=== PATIENT | male | born 1965 | race African-American/Black ===

== ENCOUNTER 2020-12-25 00:05 | Emergency (ER) | payer MEDICAID ==
[~2020-12-25] VITALS: Ht 170.2 cm; Wt 110.7 kg
--- NOTE | 2020-12-25 00:20 | NUR ---
REGULATORY COMPLIANCE DIRECTOR AT [facility] FOR BLOOD DRAW.
[2020-12-25 00:28] LABS: BASOPHILS # (AUTO) 0.1 /CMM (0.0-0.2); BASOPHILS % (AUTO) 0.4 % (0.0-2.0); EOSINOPHILS % (AUTO) 0.1 % (0.0-6.0); HEMATOCRIT 41 % (39-51); HEMOGLOBIN 13.9 g/dL (13.5-17.5); LYMPHOCYTES # (AUTO) 1.5 /CMM (0.8-4.8); LYMPHOCYTES % (AUTO) 10.6 % (20.0-44.0); MEAN CORPUSCULAR HGB CONC 34 g/dl (31.0-36.0); MEAN CORPUSCULAR VOLUME 81 fL (80-96); MONOCYTES # (AUTO) 1.3 /CMM (0.1-1.30); MONOCYTES % (AUTO) 8.8 % (2.0-12.0); NEUTROPHILS # (AUTO) 11.5 /CMM (1.8-8.9); NEUTROPHILS % (AUTO) 80.1 % (43.0-81.0); PLATELET COUNT (AUTO) 205 /CMM (150-450); RED BLOOD CELL COUNT(AUTO) 5.09 MIL/uL (4.5-6.0); WHITE BLOOD COUNT (AUTO) 14.3 K/uL (4.3-11.0)
[2020-12-25 00:39] LABS: CALCIUM, SERUM 9.6 mg/dL (8.5-10.1); CARBON DIOXIDE 28 mmol/L (21-32); CHLORIDE 103 mmol/L (98-107); CREATININE 1.2 mg/dL (0.6-1.3); GLUCOSE 102 mg/dL (74-106); POTASSIUM 4.9 mmol/L (3.5-5.1); SODIUM SERUM 140 mmol/L (136-145); UREA NITROGEN, BLOOD 20 mg/dL (7-18)
[2020-12-25 00:45] LABS: BILIRUBIN,URINE Negative (NEGATIVE); COLOR,URINE DARK YELLOW (YELLOW); LEUKOCYTE ESTERASE ,URINE Negative (NEGATIVE); NITRITE, URINE Negative (NEGATIVE); PH,URINE 6.5 (5.0-8.0); PROTEIN,URINE 100 mg/dl (NEGATIVE); UGLUCOSE Negative (NEGATIVE); UROBILINOGEN,URINE 0.2 EU/dL (0.2)
[2020-12-25 00:52] LABS: ALANINE AMINOTRANSFERASE 38 U/L (12-78); ALBUMIN 4.3 g/dL (3.4-5.0); ALCOHOL, BLOOD < 3 mg/dL (0-0); ALKALINE PHOSPHATASE 114 U/L (46-116); ASPARTATE AMINOTRANSFERASE 45 U/L (15-37); BILIRUBIN,DIRECT 0.3 mg/dL (0.0-0.2); BILIRUBIN,TOTAL 0.8 mg/dL (0.2-1.0); TOTAL PROTEIN, SERUM 8.6 g/dL (6.4-8.2)
[2020-12-25 00:53] LABS: ACETAMINOPHEN 0 ug/ml (10-30)
[2020-12-25 01:03] LABS: BACTERIA,URINE None seen /HPF (None Seen); MUCUS,URINE Few /LPF (None Seen); RBC,URINE 0-2 /HPF (0-2); SQUAMOUS EPITHELIAL CELL,UR Few /HPF (None Seen); WBC,URINE 0-2 /HPF (0-3)
--- NOTE | 2020-12-25 02:11 | NUR ---
CLINICAL AND FACESHEET FAXED TO [facility] INTAKE FOR VOLUNTARY PSYCH ADMISSION.
--- NOTE | 2020-12-25 03:07 | NUR ---
TRANSFER INFORMATION: PT ACCEPTED AT [facility] MAHENDRA SANTOS ACCEPTING MD REAGAN PHONE NUMBER PT WILL GO TO UNIT 2
--- NOTE | 2020-12-25 03:10 | NUR ---
MARILIA WILL TRANSPORT THE PT TO [facility] UNIT 2 IN 45 MINS
--- NOTE | 2020-12-25 03:18 | NUR ---
ATTEMPTED TO GIVE REPORT. UNSUCCESSFUL. STAFFS STATES SHE WILL CALL BACK IN 5 MINUTES
--- NOTE | 2020-12-25 03:37 | NUR ---
REPORT CALLED TO YAMILETH CANO
--- NOTE | 2020-12-25 04:12 | NUR ---
AMBULANCE DELAY BY 15 MINUTES
--- NOTE | 2020-12-25 04:35 | NUR ---
[facility] TO SALES MARKETING MANAGER THE PT. REPORT GIVEN
[2020-12-25 04:36] VITALS: BP 152/82
== END 2020-12-25 04:40 ==
LOC: ER 00:06
DX: R45.851 Suicidal ideations (principal); F32.9 Major depressive disorder, single episode, unspecified; Z20.822 Contact with and (suspected) exposure to COVID-19; I10 Essential (primary) hypertension; G89.29 Other chronic pain; Z88.5 Allergy status to narcotic agent; Z91.018 Allergy to other foods
CPT/HCPCS: 36415; 80048; 80076; 80143; 80307; 80320; 81001; 85025; 87426; 99285; C9803; G0480

== ENCOUNTER 2021-01-03 23:28 | Emergency (ER) | payer MEDICAID ==
[~2021-01-03] VITALS: Ht 170.2 cm; Wt 110.7 kg
--- NOTE | 2021-01-03 23:30 | NUR ---
TO ER BED 14 AMBULATORY C/O SI WITHOUT SPECIFIC PLAN. DEPRESSION. "I FEEL VERY DEPRESSED AND IT'S HARD TO COPE". REQUESTING VOLUNTARY ADMISSION FOR PSYCH. PT AAOX4, NO ACUTE DISTRESS NOTED, RESP EVEN AND UNLABORED. PT CALM AND COOPERATIVE AT THIS TIME. PLACE PT ON HOSPITAL GOWN, ALL BELONGINGS REMOVED AND PLACED IN A LOCKED HOSPITAL LOCKER. 1:1 SITTER AT BEDSIDE FOR PT SAFETY.
--- NOTE | 2021-01-03 23:45 | NUR ---
URINE SAMPLE COLLECTED AND SENT TO LAB.
--- NOTE | 2021-01-03 23:47 | NUR ---
AGRICULTURAL SERVICE TECHNICIAN AT BEDSIDE FOR BLOOD DRAW.
[2021-01-03 23:57] LABS: BASOPHILS % (AUTO) 0.3 % (0.0-2.0); EOSINOPHILS % (AUTO) 0.2 % (0.0-6.0); HEMATOCRIT 43 % (39-51); HEMOGLOBIN 14.4 g/dL (13.5-17.5); LYMPHOCYTES # (AUTO) 2.3 K/uL (0.8-4.8); LYMPHOCYTES % (AUTO) 17.1 % (20.0-44.0); MEAN CORPUSCULAR HGB CONC 34 g/dl (31.0-36.0); MEAN CORPUSCULAR VOLUME 81 fL (80-96); MONOCYTES # (AUTO) 1.1 K/uL (0.1-1.30); MONOCYTES % (AUTO) 8.1 % (2.0-12.0); NEUTROPHILS # (AUTO) 10.2 K/uL (1.8-8.9); NEUTROPHILS % (AUTO) 74.3 % (43.0-81.0); PLATELET COUNT (AUTO) 242 K/uL (150-450); RED BLOOD CELL COUNT(AUTO) 5.27 MIL/uL (4.5-6.0); WHITE BLOOD COUNT (AUTO) 13.7 K/uL (4.3-11.0)
[2021-01-03 23:59] LABS: BILIRUBIN,URINE SMALL (NEGATIVE); COLOR,URINE YELLOW (YELLOW); LEUKOCYTE ESTERASE ,URINE Negative (NEGATIVE); NITRITE, URINE Negative (NEGATIVE); PH,URINE 5.5 (5.0-8.0); PROTEIN,URINE 100 mg/dl (NEGATIVE); UGLUCOSE Negative (NEGATIVE); UROBILINOGEN,URINE 0.2 EU/dL (0.2)
[2021-01-04 00:08] LABS: BACTERIA,URINE Rare /HPF (None Seen); SQUAMOUS EPITHELIAL CELL,UR Few /HPF (None Seen); WBC,URINE NONE SEEN /HPF (0-3)
[2021-01-04 00:09] LABS: CALCIUM, SERUM 9.4 mg/dL (8.5-10.1); CARBON DIOXIDE 21 mmol/L (21-32); CHLORIDE 101 mmol/L (98-107); CREATININE 1.4 mg/dL (0.6-1.3); GLUCOSE 97 mg/dL (74-106); POTASSIUM 4.2 mmol/L (3.5-5.1); SODIUM SERUM 137 mmol/L (136-145); UREA NITROGEN, BLOOD 30 mg/dL (7-18)
[2021-01-04 00:15] LABS: ACETAMINOPHEN < 2 ug/ml (10-30); ALANINE AMINOTRANSFERASE 38 U/L (12-78); ALBUMIN 4.4 g/dL (3.4-5.0); ALCOHOL, BLOOD 43 mg/dL (0-0); ALKALINE PHOSPHATASE 100 U/L (46-116); ASPARTATE AMINOTRANSFERASE 41 U/L (15-37); BILIRUBIN,DIRECT 0.3 mg/dL (0.0-0.2); BILIRUBIN,TOTAL 0.8 mg/dL (0.2-1.0); TOTAL PROTEIN, SERUM 8.7 g/dL (6.4-8.2)
[2021-01-04 02:15] VITALS: BP 134/67
--- NOTE | 2021-01-04 02:15 | NUR ---
PT ASLEEP, NO ACUTE DISTRESS NOTED, RESP EVEN AND UNLABORED. CALL LIGHT WITHIN REACH. 1;1 SITTER REMIANS AT BEDSIDE. WILL CONTINUE TO MONITOR PT.
--- NOTE | 2021-01-04 04:08 | NUR ---
PT ACCEPTED TO [facility] BY DR MORTON. # FOR REPORT [phone]
--- NOTE | 2021-01-04 04:36 | NUR ---
PT AMBULATORY TO THE RESTROOM WITH STEADY GAIT NOTED.
--- NOTE | 2021-01-04 04:51 | NUR ---
[facility] CALLED FOR TRANSPORT. ETA 90 MINUTES.
--- NOTE | 2021-01-04 05:02 | NUR ---
REPORT GIVEN TO NIRU MAXWELL AT [facility]. BED IS 036-9
--- NOTE | 2021-01-04 06:57 | NUR ---
TRANSPORT AT BEDSIDE REPORT GIVEN TO EMT.
== END 2021-01-04 06:57 ==
LOC: ER 23:31
DX: R45.851 Suicidal ideations (principal); F14.10 Cocaine abuse, uncomplicated; Z20.822 Contact with and (suspected) exposure to COVID-19; Z59.0 Homelessness; Z88.6 Allergy status to analgesic agent; F32.9 Major depressive disorder, single episode, unspecified; G89.29 Other chronic pain
CPT/HCPCS: 36415; 80048; 80076; 80143; 80307; 80320; 81001; 85025; 87426; 99285; C9803; G0480

== ENCOUNTER 2021-01-09 13:56 | Emergency (ER) | payer MEDICAID ==
[~2021-01-09] VITALS: Ht 170.2 cm; Wt 110.7 kg
--- NOTE | 2021-01-09 14:29 | NUR ---
PT SELF PRESENTS TO ED. AMBULATORY W/ STEADY GAIT C/O DEPRESSION WITH SI, +PLAN TO JUMP IN FRONT OF A TRAIN. PT DENIES HI. COOPERATIVE TO STAFF. STABLE VITALS. NAD NOTED AWAITING MD HERNADEZ.
--- NOTE | 2021-01-09 15:22 | NUR ---
ENE CLARK AT BEDSIDE FOR EVAL.
--- NOTE | 2021-01-09 15:52 | NUR ---
CARD CUTTER AT BEDSIDE FOR BLOOD DRAW.
[2021-01-09 16:02] LABS: BASOPHILS % (AUTO) 0.2 % (0.0-2.0); HEMATOCRIT 37 % (39-51); HEMOGLOBIN 12.6 g/dL (13.5-17.5); LYMPHOCYTES # (AUTO) 1.5 K/uL (0.8-4.8); LYMPHOCYTES % (AUTO) 17.9 % (20.0-44.0); MEAN CORPUSCULAR HGB CONC 34 g/dl (31.0-36.0); MEAN CORPUSCULAR VOLUME 82 fL (80-96); MONOCYTES # (AUTO) 0.7 K/uL (0.1-1.30); MONOCYTES % (AUTO) 8.3 % (2.0-12.0); NEUTROPHILS # (AUTO) 5.8 K/uL (1.8-8.9); NEUTROPHILS % (AUTO) 70.6 % (43.0-81.0); PLATELET COUNT (AUTO) 198 K/uL (150-450); RED BLOOD CELL COUNT(AUTO) 4.57 MIL/uL (4.5-6.0); WHITE BLOOD COUNT (AUTO) 8.3 K/uL (4.3-11.0)
[2021-01-09 16:16] LABS: ALANINE AMINOTRANSFERASE 33 U/L (12-78); ALBUMIN 3.8 g/dL (3.4-5.0); ALKALINE PHOSPHATASE 104 U/L (46-116); ASPARTATE AMINOTRANSFERASE 28 U/L (15-37); BILIRUBIN,DIRECT 0.2 mg/dL (0.0-0.2); BILIRUBIN,TOTAL 0.4 mg/dL (0.2-1.0); CALCIUM, SERUM 8.6 mg/dL (8.5-10.1); CARBON DIOXIDE 24 mmol/L (21-32); CHLORIDE 102 mmol/L (98-107); CREATININE 1.1 mg/dL (0.6-1.3); GLUCOSE 161 mg/dL (74-106); SODIUM SERUM 137 mmol/L (136-145); TOTAL PROTEIN, SERUM 7.8 g/dL (6.4-8.2); UREA NITROGEN, BLOOD 15 mg/dL (7-18)
[2021-01-09 16:17] LABS: ACETAMINOPHEN < 3 ug/ml (10-30); ALCOHOL, BLOOD < 2 mg/dL (0-0)
[2021-01-09 17:00] LABS: BILIRUBIN,URINE Negative (NEGATIVE); COLOR,URINE YELLOW (YELLOW); LEUKOCYTE ESTERASE ,URINE Negative (NEGATIVE); NITRITE, URINE Negative (NEGATIVE); PROTEIN,URINE 30 mg/dl (NEGATIVE); UGLUCOSE Negative (NEGATIVE)
[2021-01-09 17:21] LABS: BACTERIA,URINE Rare /HPF (None Seen); RBC,URINE NONE SEEN /HPF (0-2); SQUAMOUS EPITHELIAL CELL,UR Few /HPF (None Seen); WBC,URINE NONE SEEN /HPF (0-3)
--- NOTE | 2021-01-09 20:06 | NUR ---
CALLED IVONNE AT [facility] INTAKE TO INSURE SHE HAS REC'S THE INQUIRES
--- NOTE | 2021-01-09 21:03 | NUR ---
PT GOT ACCEPTED AT [facility] BY DR EDWARDS AT UNIT 2. TRANPORTATION RRANGED BY [facility] IN 75-90 MIN
[2021-01-09 22:39] VITALS: BP 138/87
--- NOTE | 2021-01-09 23:10 | NUR ---
[facility]
--- NOTE | 2021-01-09 23:44 | NUR ---
REPORT GIVEN TO FREDDY AT [facility]
--- NOTE | 2021-01-10 00:45 | NUR ---
PT TRANSFERED TO [facility]
== END 2021-01-10 00:47 ==
LOC: ER 13:58
DX: R45.851 Suicidal ideations (principal); K74.60 Unspecified cirrhosis of liver; Z59.0 Homelessness; D64.9 Anemia, unspecified; Z20.822 Contact with and (suspected) exposure to COVID-19; G89.29 Other chronic pain; M79.605 Pain in left leg; Z91.018 Allergy to other foods; Z88.5 Allergy status to narcotic agent; I10 Essential (primary) hypertension; E11.9 Type 2 diabetes mellitus without complications
CPT/HCPCS: 36415; 80048; 80076; 80143; 80307; 80320; 81001; 85025; 87426; 99285; C9803; G0480

== ENCOUNTER 2021-01-21 05:33 | Emergency (ER) | payer MEDICAID, OTHER ==
[~2021-01-21] VITALS: Ht 170.2 cm; Wt 111.1 kg
--- NOTE | 2021-01-21 06:18 | NUR ---
PT REFUSED TO CHANGE IN TO HOSPITAL GOWN. SECURITY AT BED SIDE
--- NOTE | 2021-01-21 06:21 | NUR ---
BIBS FOR C/O SI W/ PLAMN TO JUMP IN FRONT OFA TRAIN. ASKING FOR MEDICAL CLEARANCE FOR VOLUNTARY PSYCH ADMISSION. AMBULATORY OT THE PATHROOM. URINE SAMPLE OBTAINED. PT WAS GOWNED UP, IN BED AND REMAINED UNDER CLOSE SUPERVISION OF A SITTER. SI PRECAUTION IMPLEMENTED. ON MONITOR. VSS. WILL CONT TO MONITOR
[2021-01-21 06:46] LABS: BASOPHILS % (AUTO) 0.5 % (0.0-2.0); HEMATOCRIT 37 % (39-51); HEMOGLOBIN 12.4 g/dL (13.5-17.5); LYMPHOCYTES # (AUTO) 0.9 K/uL (0.8-4.8); LYMPHOCYTES % (AUTO) 17.3 % (20.0-44.0); MEAN CORPUSCULAR HGB CONC 34 g/dl (31.0-36.0); MEAN CORPUSCULAR VOLUME 82 fL (80-96); MONOCYTES # (AUTO) 0.5 K/uL (0.1-1.30); MONOCYTES % (AUTO) 10.9 % (2.0-12.0); NEUTROPHILS # (AUTO) 3.4 K/uL (1.8-8.9); NEUTROPHILS % (AUTO) 69.3 % (43.0-81.0); PLATELET COUNT (AUTO) 136 K/uL (150-450); RED BLOOD CELL COUNT(AUTO) 4.48 MIL/uL (4.5-6.0)
--- NOTE | 2021-01-21 06:49 | NUR ---
COVID SWAB COLLECTED AND SENT TO LAB
[2021-01-21 07:01] LABS: ALANINE AMINOTRANSFERASE 39 U/L (12-78); ALBUMIN 3.7 g/dL (3.4-5.0); ALCOHOL, BLOOD < 3 mg/dL (0-0); ALKALINE PHOSPHATASE 104 U/L (46-116); ASPARTATE AMINOTRANSFERASE 29 U/L (15-37); BILIRUBIN,DIRECT 0.3 mg/dL (0.0-0.2); BILIRUBIN,TOTAL 0.7 mg/dL (0.2-1.0); CALCIUM, SERUM 8.5 mg/dL (8.5-10.1); CARBON DIOXIDE 26 mmol/L (21-32); CHLORIDE 101 mmol/L (98-107); CREATININE 1.3 mg/dL (0.6-1.3); GLUCOSE 247 mg/dL (74-106); POTASSIUM 3.4 mmol/L (3.5-5.1); SODIUM SERUM 139 mmol/L (136-145); TOTAL PROTEIN, SERUM 7.7 g/dL (6.4-8.2)
[2021-01-21 07:14] LABS: BILIRUBIN,URINE NEGATIVE (NEGATIVE); COLOR,URINE DARK YELLOW (YELLOW); LEUKOCYTE ESTERASE ,URINE NEGATIVE (NEGATIVE); NITRITE, URINE NEGATIVE (NEGATIVE); PH,URINE 5.5 (5.0-8.0); PROTEIN,URINE 100 mg/dl (NEGATIVE); UGLUCOSE 250 MG/DL mg/dL (NEGATIVE)
[2021-01-21 07:14] LABS: ACETAMINOPHEN 0 ug/ml (10-30)
[2021-01-21 07:15] LABS: UREA NITROGEN, BLOOD 16 mg/dL (7-18)
[2021-01-21 07:28] LABS: BACTERIA,URINE Rare /HPF (None Seen); RBC,URINE 0-2 /HPF (0-2); SQUAMOUS EPITHELIAL CELL,UR Rare /HPF (None Seen)
--- NOTE | 2021-01-21 07:31 | NUR ---
The patient is sleeping in bed. Easily aroused. VSS
[2021-01-21 07:32] LABS: COARSE GRANULAR CASTS,URINE Rare /LPF (None Seen)
--- NOTE | 2021-01-21 09:25 | NUR ---
HAVING BREAKFAST AT THIS TIME
[2021-01-21 11:04] VITALS: BP 144/87
--- NOTE | 2021-01-21 11:04 | NUR ---
THE PATIENT ALERT AND ORIENTED X3. DENIES PAIN. IN ROOM AIR AND DENIES SOB. RESPIRATION REGULAR AND UNLABORED. WILL CONTINUE TO MONITOR THE PATIENT.
--- NOTE | 2021-01-21 11:45 | NUR ---
"Social Service consult: access services librarian consult requested for suicidal ideation with a plan and substance use. Patient is a 55-year-old, male. SW met with patient at his bedside in the emergency department. Patient was alert and oriented x4. Patient appeared anxious. Patient appeared well-groomed. Per chart, patient was brought in by self on 01/21/21 with complaints of suicidal ideation with a plan to jump in front of a train. Patient requested voluntary psychiatric admission. Upon consult, patient requested voluntary psychiatric admission to, [facility] ([address] [place] [address]; ). SW to follow up. Patient stated that he is currently experiencing suicidal ideation with a plan to overdose on drugs. Patient denied homicidal ideation. Patient stated that he is currently homeless and was previously living at multiple [facility] locations. Patient stated that his current source of income is food stamps and [employer]. SW asked the patient if he has access to social support and patient stated that he has no access to support. SW asked the patient if he has a history of substance use and patient reported occasional alcohol and drug use. Patient did not want to discuss or disclose further regarding his substance use history. Per toxicology report, patient is positive for cocaine. SW assessed patients history of mental illness. Patient stated that he has a history of Paranoid Schizophrenia and Schizoaffective Disorder. Patient stated that he is currently taking psychiatric medications which include, Wellbutrin, Seroquel, Prozac and Xanax, which he obtains from [facility] SW offered the patient homeless, mental health, and substance use resources. Patient accepted the resources and thanked SW. Patient signed the homeless waiver and SW filed waiver in the patients chart. NATHAN will fax clinicals to [phone], for review per patients request for voluntary psychiatric admission to [facility]. PLAN: Per patient's request, NATHAN will fax clinicals for review to [facility]. Addendum: 01/21/21 at 1442 by MOHSEN GARBER RESOURCES: Year-round shelters: [facility] [place] [address] [place] [address] ; [facility] [place] [address] [place] [address]; [facility] [id number] [facility] [address] SPA 4 | [facility] [place] Provider: [facility] Serve Address: [address], [address] # of Beds: 48 Population Served: [facility] Provider: First to Serve Address: [address] [facility], [address] # of Beds: 73 Population Served: [facility] 6 | [facility] Provider: [facility] at Last Address: [address] [facility], [address] # of Beds: 63 Population Served: [facility] SPA 3 | [facility] Provider: [facility] [place] Address: [address] [facility], [address] # of Beds: 75 Population Served: [place] SPA 8 | [facility] Provider: [facility] [place] Address: [address] [facility], [address] # of Beds: 80 Population Served: [place] SPA 1 | [facility] Provider: [facility] [place] Address: [address] [address], [address] # of Beds: 85 Population Served: [place] SPA 2 | [facility] Provider: Y[place] Address: Confidential (please call for location) # of Beds: 52 Population Served: [facility] 4 | [facility] Provider: Carlos A Johnson Address: [address] [facility], [address] # of Beds: 49 Population Served: [facility] Provider: [facility] To Serve Address: [address] [place] [address], [address] # of Beds: 27 Population Served: [facility] Hygiene: [facility] [employer]: [address] [place] ; [facility] [address] [facility] ; [facility] [address] [facility] . Food Resources: [place] [facility] at [facility]- [address] [facility]; Meet Each Need with Dignity ([facility]) [address] [facility]; [facility] [address] [facility]; [facility] 8[address] [facility]. Mental Health resources provided: [facility] [address] [place], [place] [address] ; [facility] [place] [address] [facility] [address], [place], [place] [phone] ; Pilar Duenas [facility] [address] [place] [address] ; [facility] [address] [place], [place] [phone] Healthcare Clinics: [facility] [address] [facility], [address] [place]. [place] ; [facility] [address] [facility] [address] [place] [address]; [facility] [address] [facility]. [place] [phone] Counseling--[facility] [address] [facility] [facility], [place] [address] (Specializes in in-depth psychotherapy for emotional distress: anxiety, depression, interpersonal conflicts, life transitions, childhood abuse) PSYCHIATRIC OUTPATIENT SERVICES [facility] Partial Hospitalization and Intensive Outpatient Program (Managed Care and [place] Only) [address] [facility] [address] [facility] Partial Hospitalization and Outpatient Program [address] [place] [address] [facility] Partial Hospitalization and Outpatient Program [address] [place], [place] [id number] VAN YS [facility] [address] [place], [place] [phone] [facility] Partial Hospitalization and Outpatient Program [address] [place], [place] [phone] Substance use resources provided included: [facility] Substance Abuse Self-Helpline (SAS) ; [facility] [address] [facility]. [place] [address] ; [facility] [address] [facility] [address] ; [facility] [address] [facility] [phone] ; [facility] Treatment [facility] 49[address] [facility] [phone] ; [facility] [address] [facility] [address] ; [facility] [place]; [facility] [place]; [facility] [place]; Alcoholics Anonymous -SFV"
--- NOTE | 2021-01-21 11:50 | NUR ---
Family Physician note: Per patient's request, SW faxed clinicals for review, . Patient requested voluntary psychiatric admission to [facility].
--- NOTE | 2021-01-21 13:41 | NUR ---
PER [facility] REQUEST FAXED LAB RESULTS TO THE HOSPITAL TEL [phone] FAX [phone] Addendum: 01/21/21 at 1344 by ERON FAX COMFIRMATION RECEIVED
--- NOTE | 2021-01-21 14:20 | NUR ---
Tree Expert note: Patient has been accepted to [facility] ([address] [facility], [place] [address]; ) for inpatient psychiatric hospitalization. Call in to report at [phone].
--- NOTE | 2021-01-21 15:14 | NUR ---
Report given to nurse Loaiza from [facility].
--- NOTE | 2021-01-21 15:46 | NUR ---
ARRANGED TRANSPORT WITH RAULITO TO [facility]. ETA IS 1900
--- NOTE | 2021-01-21 19:27 | NUR ---
FOLLOWED UP WITH MONA FERRARA. NO TRANSPORT SET UP. EARLIEST ETA IS 0100
--- NOTE | 2021-01-21 19:29 | NUR ---
SET UP BLS TRANSPORT THROUGH [facility]. ETA IS 45 MIN
--- NOTE | 2021-01-21 19:30 | NUR ---
SPOKE WITH MARA FROM [facility] TO SET UP TRANPORT
--- NOTE | 2021-01-21 19:47 | NUR ---
[facility] UNIT #[id number] IN FACILITY
--- NOTE | 2021-01-21 19:55 | NUR ---
REPORT GIVEN, PT LEFT VIA [facility] AMBULANCE. VSS, NAD.
== END 2021-01-21 20:05 ==
LOC: ER 05:38
DX: R45.851 Suicidal ideations (principal); Z59.0 Homelessness; F20.0 Paranoid schizophrenia; I10 Essential (primary) hypertension
CPT/HCPCS: 36415; 80048; 80076; 80143; 80307; 80320; 81001; 85025; 87426; 99285; C9803; G0480

== ENCOUNTER 2021-01-23 07:30 | Emergency (ER) | payer OTHER ==
[~2021-01-23] VITALS: Ht 170.2 cm; Wt 109.3 kg
[2021-01-23 08:17] LABS: BASOPHILS % (AUTO) 0.5 % (0.0-2.0); EOSINOPHILS % (AUTO) 2.9 % (0.0-6.0); HEMATOCRIT 36 % (39-51); HEMOGLOBIN 12.2 g/dL (13.5-17.5); LYMPHOCYTES # (AUTO) 1.5 K/uL (0.8-4.8); LYMPHOCYTES % (AUTO) 22.8 % (20.0-44.0); MEAN CORPUSCULAR HGB CONC 34 g/dl (31.0-36.0); MEAN CORPUSCULAR VOLUME 81 fL (80-96); MONOCYTES # (AUTO) 0.7 K/uL (0.1-1.30); MONOCYTES % (AUTO) 11.4 % (2.0-12.0); NEUTROPHILS # (AUTO) 4.1 K/uL (1.8-8.9); NEUTROPHILS % (AUTO) 62.4 % (43.0-81.0); PLATELET COUNT (AUTO) 188 K/uL (150-450); RED BLOOD CELL COUNT(AUTO) 4.43 MIL/uL (4.5-6.0); WHITE BLOOD COUNT (AUTO) 6.5 K/uL (4.3-11.0)
[2021-01-23] MEDS ORDERED: OLANZAPINE 5 MG TABLET ONE (08:21)
[2021-01-23] MEDS: OLANZAPINE 5 MG TABLET PO ONE (08:24)
[2021-01-23 08:40] LABS: BILIRUBIN,URINE NEGATIVE (NEGATIVE); COLOR,URINE YELLOW (YELLOW); LEUKOCYTE ESTERASE ,URINE NEGATIVE (NEGATIVE); NITRITE, URINE NEGATIVE (NEGATIVE); PROTEIN,URINE NEGATIVE (NEGATIVE); UGLUCOSE NEGATIVE (NEGATIVE)
[2021-01-23 09:09] LABS: ALANINE AMINOTRANSFERASE 38 U/L (12-78); ALBUMIN 3.5 g/dL (3.4-5.0); ALKALINE PHOSPHATASE 97 U/L (46-116); ASPARTATE AMINOTRANSFERASE 28 U/L (15-37); BILIRUBIN,DIRECT 0.2 mg/dL (0.0-0.2); BILIRUBIN,TOTAL 0.5 mg/dL (0.2-1.0); CARBON DIOXIDE 29 mmol/L (21-32); CHLORIDE 103 mmol/L (98-107); CREATININE 1.2 mg/dL (0.6-1.3); GLUCOSE 102 mg/dL (74-106); SODIUM SERUM 139 mmol/L (136-145); TOTAL PROTEIN, SERUM 7.2 g/dL (6.4-8.2); UREA NITROGEN, BLOOD 17 mg/dL (7-18)
[2021-01-23 09:14] LABS: ACETAMINOPHEN < 10 ug/ml (10-30); ALCOHOL, BLOOD < 3 mg/dL (0-0)
[2021-01-23 09:27] LABS: BACTERIA,URINE Rare /HPF (None Seen); RBC,URINE 0-2 /HPF (0-2); SQUAMOUS EPITHELIAL CELL,UR Rare /HPF (None Seen); WBC,URINE 0-2 /HPF (0-3)
--- NOTE | 2021-01-23 11:05 | NUR ---
[facility]
--- NOTE | 2021-01-23 11:05 | NUR ---
Research And Development Specialist consult: director of creative services requested for patient with complaints of feeling depressed. Patient is a 55-year-old, male. SW met with patient at his bedside in the emergency department. Patient was alert and oriented x4. Patient was calm and resting. Per chart, patient presented to the hospital on 01/23/21 with complaints of feeling depressed and requested voluntary psychiatric admission. ED staff faxed clinicals to [facility]. Patient is currently homeless and stated that he has been homeless for the last couple of months. SW asked patient if he currently had a source of income and patient stated that he receives food stamps and [employer]. Patient stated, "I'm waiting for my SSI." SW asked the patient about his history of substance use and patient denied history. Per toxicology report, patient is positive for cocaine. SW assessed patient's history of mental illness and patient reported, Paranoid Schizophrenia, Bipolar Disorder and Depression. Patient stated that he is currently taking psychiatric medication which includes, Seroquel, Wellbutrin and Xanax. Patient reported that he has experienced visual hallucinations in the past but was not experiencing hallucinations during the interview. Patient stated that he has been feeling depressed and suicidal. Patient did not endorse a plan for his suicidal ideation. Patient denied homicidal ideation. SW offered the patient homeless resources and patient declined the resources stating that he did not need them at this time. Patient signed the homeless waiver and SW filed the waiver in the patient's chart. Patient requested voluntary psychiatric admission to [facility]. SW will follow up with this discharge plan. PLAN: Clinicals have been faxed to [facility], for review. No further SS intervention at this time, however, SW will remain available as needed.
--- NOTE | 2021-01-23 11:21 | NUR ---
The patient sleeping. Easily responsive to verbal stimuli. VSS.
--- NOTE | 2021-01-23 12:10 | NUR ---
PT ACCEPTED TO [facility] UNDER DR. MORTON UNIT TWO [phone]
--- NOTE | 2021-01-23 12:13 | NUR ---
TRANSPORT CALLED MARILIA AREVALO 60 MINS.
--- NOTE | 2021-01-23 12:15 | NUR ---
CALLED FOR REPORT, NURSE IS ON BREAK
--- NOTE | 2021-01-23 12:42 | NUR ---
REPORT GIVEN TO NURSE WHALEY FROM [facility]ERIE HENDRICKSON.
--- NOTE | 2021-01-23 14:05 | NUR ---
Lease Buyer note: Patient has been accepted to [facility].
--- NOTE | 2021-01-23 14:10 | NUR ---
The patient is transfered to [facility].
[2021-01-23 14:12] VITALS: BP 124/86
== END 2021-01-23 14:13 ==
LOC: ER 07:32
DX: R45.851 Suicidal ideations (principal); F31.9 Bipolar disorder, unspecified; F14.10 Cocaine abuse, uncomplicated; Z59.0 Homelessness; F20.0 Paranoid schizophrenia; I10 Essential (primary) hypertension; Z88.5 Allergy status to narcotic agent; Z91.018 Allergy to other foods; E11.9 Type 2 diabetes mellitus without complications; Z20.822 Contact with and (suspected) exposure to COVID-19
CPT/HCPCS: 36415; 80048; 80076; 80143; 80307; 80320; 81001; 85025; 87426; 99285; C9803; G0480

== ENCOUNTER 2021-01-29 21:42 | Emergency (ER) | payer OTHER ==
[~2021-01-29] VITALS: Ht 170.2 cm; Wt 109.3 kg
--- NOTE | 2021-01-29 21:45 | NUR ---
C/O SI WITH PLAN TO JUMP IN FRONT OF A MOVING TRAIN, DEPRESSED. DENIES HI. REQUESTING VOLUNTARY ADMISSION TO [facility]. PT AAOX4 NO ACUTE DISTRESS NOTED, RESP EVEN AND UNLABORED. PT CALM AND COOPERATIVE AT THIS TIME.PENDING ER MD HERNADEZ.
--- NOTE | 2021-01-29 22:18 | NUR ---
URINE SAMPLE COLLECTED AND SENT TO LAB.
--- NOTE | 2021-01-29 22:20 | NUR ---
BLOOD DRAWN BY PROCESS EXCELLENCE MANAGER.
[2021-01-29 22:24] LABS: BASOPHILS % (AUTO) 0.5 % (0.0-2.0); EOSINOPHILS % (AUTO) 1.6 % (0.0-6.0); HEMATOCRIT 41 % (39-51); LYMPHOCYTES % (AUTO) 22.8 % (20.0-44.0); MEAN CORPUSCULAR HGB CONC 34 g/dl (31.0-36.0); MEAN CORPUSCULAR VOLUME 79 fL (80-96); MONOCYTES # (AUTO) 1.1 K/uL (0.1-1.30); MONOCYTES % (AUTO) 12.2 % (2.0-12.0); NEUTROPHILS # (AUTO) 5.6 K/uL (1.8-8.9); NEUTROPHILS % (AUTO) 62.9 % (43.0-81.0); PLATELET COUNT (AUTO) 220 K/uL (150-450); RED BLOOD CELL COUNT(AUTO) 5.15 MIL/uL (4.5-6.0); WHITE BLOOD COUNT (AUTO) 8.9 K/uL (4.3-11.0)
[2021-01-29 22:27] LABS: BILIRUBIN,URINE Negative (NEGATIVE); COLOR,URINE YELLOW (YELLOW); LEUKOCYTE ESTERASE ,URINE Negative (NEGATIVE); NITRITE, URINE Negative (NEGATIVE); PROTEIN,URINE 30 mg/dl (NEGATIVE); UGLUCOSE Negative (NEGATIVE)
[2021-01-29 22:32] LABS: CALCIUM, SERUM 9.2 mg/dL (8.5-10.1); CARBON DIOXIDE 27 mmol/L (21-32); CHLORIDE 102 mmol/L (98-107); CREATININE 1.4 mg/dL (0.6-1.3); GLUCOSE 110 mg/dL (74-106); POTASSIUM 4.5 mmol/L (3.5-5.1); SODIUM SERUM 139 mmol/L (136-145); UREA NITROGEN, BLOOD 21 mg/dL (7-18)
[2021-01-29 22:37] LABS: ALANINE AMINOTRANSFERASE 29 U/L (12-78); ALBUMIN 3.8 g/dL (3.4-5.0); ALKALINE PHOSPHATASE 95 U/L (46-116); ASPARTATE AMINOTRANSFERASE 28 U/L (15-37); BILIRUBIN,DIRECT 0.3 mg/dL (0.0-0.2); TOTAL PROTEIN, SERUM 7.8 g/dL (6.4-8.2)
[2021-01-29 22:38] LABS: ACETAMINOPHEN < 2 ug/ml (10-30); ALCOHOL, BLOOD < 3 mg/dL (0-0)
[2021-01-29 22:46] LABS: BACTERIA,URINE Rare /HPF (None Seen); RBC,URINE NONE SEEN /HPF (0-2); SQUAMOUS EPITHELIAL CELL,UR Few /HPF (None Seen); WBC,URINE NONE SEEN /HPF (0-3)
--- NOTE | 2021-01-29 23:28 | NUR ---
FACESHEET AND CLINICAL FAXED TO [facility] INTAKE FOR VOLUNTARY PSYCH ADMISSION.
--- NOTE | 2021-01-30 00:05 | NUR ---
PT ASLEEP, NO ACUTE DISTRESS NOTED, RESP EVEN AND UNLABORED. CALL LIGHT WITHIN REACH. WILL CONTINUE TO MONITOR PT CLOSELY.
[2021-01-30 06:28] VITALS: BP 132/87
--- NOTE | 2021-01-30 06:51 | NUR ---
ACCEPTED [facility]OVER NUMBER FOR REPORT [phone] LETICIA WANG
--- NOTE | 2021-01-30 07:30 | NUR ---
[facility] WILL BE HERE TO TRANSPORT PT TO [facility] IN 45 MINS. VIA [facility].
--- NOTE | 2021-01-30 08:00 | NUR ---
REPORT GIVEN TO HERMAN MAXWELL AT [facility].
--- NOTE | 2021-01-30 08:07 | NUR ---
REPORT AND DISCHARGE PAPERWORK GIVEN TO LUGGAGE LINER. PATIENT A/OX3, BREATHING EVEN AND UNLABORED, NO SOB NTOED. PATIENT WILL BE TRANSFERRED TO [facility] IN STABLE CONDITION.
== END 2021-01-30 08:08 ==
LOC: ER 21:44
DX: R45.851 Suicidal ideations (principal); F31.9 Bipolar disorder, unspecified; F19.10 Other psychoactive substance abuse, uncomplicated; Z82.49 Family history of ischemic heart disease and other diseases of the circulatory system; Z20.822 Contact with and (suspected) exposure to COVID-19; Z59.0 Homelessness; F17.200 Nicotine dependence, unspecified, uncomplicated; Z88.5 Allergy status to narcotic agent; Z91.018 Allergy to other foods; F20.0 Paranoid schizophrenia; I10 Essential (primary) hypertension; E11.9 Type 2 diabetes mellitus without complications
CPT/HCPCS: 36415; 80048; 80076; 80143; 80307; 80320; 81001; 85025; 87426; 99285; C9803; G0480

== ENCOUNTER 2021-01-31 23:04 | Emergency (ER) | payer OTHER ==
[~2021-01-31] VITALS: Ht 170.2 cm; Wt 108.9 kg
--- NOTE | 2021-01-31 23:05 | NUR ---
TO ER BED C/O DEPRESSION,"I'M VERY DEPRESSED AND I HAVE THOUGHTS OF HURTING MYSELF" NO SPECIFIC PLAN. REQUESTING VOLUNTARY. PT AAOX4 NO ACUTE DISTRESS NOTED, RESP EVEN AND UNLABORED. PT CALM AND COOPERATIVE AT THIS TIME. ER MD AT BEDSIDE TO EVAL PT WITH ORDERS RECEIVED. WILL CARRY OUT ORDERS.
--- NOTE | 2021-02-01 00:03 | NUR ---
URINE SAMPLE COLLECTED AND SENT TO LAB.
--- NOTE | 2021-02-01 00:05 | NUR ---
CLIENT TECHNICAL SPECIALIST AT [facility] FOR BLOOD DRAW.
[2021-02-01 00:13] LABS: BASOPHILS % (AUTO) 0.3 % (0.0-2.0); EOSINOPHILS % (AUTO) 1.8 % (0.0-6.0); HEMATOCRIT 38 % (39-51); HEMOGLOBIN 12.9 g/dL (13.5-17.5); LYMPHOCYTES # (AUTO) 2.3 K/uL (0.8-4.8); LYMPHOCYTES % (AUTO) 31.8 % (20.0-44.0); MEAN CORPUSCULAR HGB CONC 34 g/dl (31.0-36.0); MEAN CORPUSCULAR VOLUME 81 fL (80-96); MONOCYTES % (AUTO) 13.9 % (2.0-12.0); NEUTROPHILS # (AUTO) 3.7 K/uL (1.8-8.9); NEUTROPHILS % (AUTO) 52.2 % (43.0-81.0); PLATELET COUNT (AUTO) 199 K/uL (150-450); WHITE BLOOD COUNT (AUTO) 7.1 K/uL (4.3-11.0)
[2021-02-01 00:15] LABS: BILIRUBIN,URINE SMALL (NEGATIVE); COLOR,URINE ORANGE (YELLOW); LEUKOCYTE ESTERASE ,URINE Negative (NEGATIVE); NITRITE, URINE Negative (NEGATIVE); PROTEIN,URINE 100 mg/dl (NEGATIVE); UGLUCOSE Negative (NEGATIVE); UROBILINOGEN,URINE >=8.0 EU/dL (0.2)
[2021-02-01 00:20] LABS: CALCIUM, SERUM 8.8 mg/dL (8.5-10.1); CARBON DIOXIDE 26 mmol/L (21-32); CHLORIDE 104 mmol/L (98-107); CREATININE 1.3 mg/dL (0.6-1.3); GLUCOSE 118 mg/dL (74-106); POTASSIUM 3.9 mmol/L (3.5-5.1); SODIUM SERUM 141 mmol/L (136-145); UREA NITROGEN, BLOOD 15 mg/dL (7-18)
[2021-02-01 00:26] LABS: ACETAMINOPHEN < 2 ug/ml (10-30); ALANINE AMINOTRANSFERASE 28 U/L (12-78); ALBUMIN 3.9 g/dL (3.4-5.0); ALCOHOL, BLOOD 4 mg/dL (0-0); ALKALINE PHOSPHATASE 112 U/L (46-116); ASPARTATE AMINOTRANSFERASE 26 U/L (15-37); BILIRUBIN,DIRECT 0.2 mg/dL (0.0-0.2); BILIRUBIN,TOTAL 0.5 mg/dL (0.2-1.0); TOTAL PROTEIN, SERUM 7.8 g/dL (6.4-8.2)
[2021-02-01 00:28] LABS: BACTERIA,URINE Rare /HPF (None Seen); RBC,URINE NONE SEEN /HPF (0-2); SQUAMOUS EPITHELIAL CELL,UR Few /HPF (None Seen); WBC,URINE NONE SEEN /HPF (0-3)
--- NOTE | 2021-02-01 01:27 | NUR ---
FACESHEET AND CLINICAL FA[facility]ED TO [facility] FOR VOLUNTARY PSYCH ADMISSION.
--- NOTE | 2021-02-01 05:37 | NUR ---
Laci leone in [facility] - 02/01/21 at 5243 by SUSHMA TRANSFER INFORMATION PT ACCEPTED AT [facility] MAHENDRA SANTOS ACCEPTING MD EDWARDS/ MD MADRID PHONE NUMBER FOR REPORT
--- NOTE | 2021-02-01 05:37 | NUR ---
TRANSFER INFORMATION PT ACCEPTED AT [facility] MAHEDNRA SANTOS ACCEPTING MD EDWARDS/ MD MADRID PHONE NUMBER FOR REPORT
[2021-02-01 05:40] VITALS: BP 139/68
--- NOTE | 2021-02-01 05:40 | NUR ---
[facility] CALLED FOR TRANSPORT ETA 0700.
--- NOTE | 2021-02-01 05:48 | NUR ---
REPORT GIVEN TO DAMIAN MAXWELL FOR JE[facility]
--- NOTE | 2021-02-01 07:26 | NUR ---
CALL FROM [facility],NEW ETA 4125
--- NOTE | 2021-02-01 07:42 | NUR ---
A/OX4, PROVIDED BREAKFAST. NO DISTRESS NOTED.
--- NOTE | 2021-02-01 08:34 | NUR ---
REPORT GIVEN TO DRILL PRESS OPERATOR FOR METAL. PATIENT LEFT IN STABLE CONDITION. TRANSFERRED TO [facility].
--- NOTE | 2021-02-01 10:05 | NUR ---
SS note: SS consult requested for suicidal ideation, homelessness and substance use. SW was unable to interview patient and assess patient's needs for community resources as patient had already been discharged. No further SS intervention, however, SW will remain available as needed.
== END 2021-02-01 08:35 ==
LOC: ER 23:11
DX: R45.851 Suicidal ideations (principal); F19.10 Other psychoactive substance abuse, uncomplicated; F20.0 Paranoid schizophrenia; I10 Essential (primary) hypertension; Z59.0 Homelessness; G89.29 Other chronic pain; M54.9 Dorsalgia, unspecified; Z88.5 Allergy status to narcotic agent; Z91.018 Allergy to other foods; Z20.822 Contact with and (suspected) exposure to COVID-19
CPT/HCPCS: 36415; 80048; 80076; 80143; 80307; 80320; 81001; 85025; 87426; 99285; C9803; G0480

== ENCOUNTER 2021-02-06 18:58 | Emergency (ER) | payer OTHER ==
[~2021-02-06] VITALS: Ht 170.2 cm; Wt 108.9 kg
--- NOTE | 2021-02-06 19:10 | NUR ---
TO ER BED REQUESTING MEDICAL CLEARANCE FOR VOLUNTARY PSYCH ADMISSION. PT C/O SI WITH PLAN TO "JUMP IN FRONT OF TRAIN". DENIES HI. PT AAOX4 NO ACUTE DISTRESS NOTED, RESP EVEN AND UNLABORED. PT CALM AND COOPERATIVE AT THIS TIME.
--- NOTE | 2021-02-06 21:00 | NUR ---
COVID SWAB COLLECTED AND SENT TO LAB.
--- NOTE | 2021-02-06 21:02 | NUR ---
BLOOD DRAWN BY UNIX ENGINEER.
[2021-02-06 21:05] LABS: BASOPHILS % (AUTO) 0.3 % (0.0-2.0); EOSINOPHILS % (AUTO) 2.8 % (0.0-6.0); HEMATOCRIT 36 % (39-51); HEMOGLOBIN 12.2 g/dL (13.5-17.5); LYMPHOCYTES # (AUTO) 2.2 K/uL (0.8-4.8); LYMPHOCYTES % (AUTO) 30.1 % (20.0-44.0); MEAN CORPUSCULAR HGB CONC 34 g/dl (31.0-36.0); MEAN CORPUSCULAR VOLUME 81 fL (80-96); MONOCYTES # (AUTO) 0.7 K/uL (0.1-1.30); MONOCYTES % (AUTO) 10.4 % (2.0-12.0); NEUTROPHILS % (AUTO) 56.4 % (43.0-81.0); PLATELET COUNT (AUTO) 184 K/uL (150-450); RED BLOOD CELL COUNT(AUTO) 4.43 MIL/uL (4.5-6.0); WHITE BLOOD COUNT (AUTO) 7.2 K/uL (4.3-11.0)
[2021-02-06 21:12] LABS: BILIRUBIN,URINE NEGATIVE (NEGATIVE); COLOR,URINE YELLOW (YELLOW); LEUKOCYTE ESTERASE ,URINE NEGATIVE (NEGATIVE); NITRITE, URINE NEGATIVE (NEGATIVE); PROTEIN,URINE 100 mg/dl (NEGATIVE); UGLUCOSE NEGATIVE (NEGATIVE); UROBILINOGEN,URINE 0.2 EU/dL (0.2)
[2021-02-06 21:21] LABS: BACTERIA,URINE Few /HPF (None Seen); RBC,URINE 0-2 /HPF (0-2); SQUAMOUS EPITHELIAL CELL,UR Few /HPF (None Seen)
[2021-02-06 21:27] LABS: ALANINE AMINOTRANSFERASE 27 U/L (12-78); ALBUMIN 3.6 g/dL (3.4-5.0); ALCOHOL, BLOOD < 3 mg/dL (0-0); ALKALINE PHOSPHATASE 95 U/L (46-116); ASPARTATE AMINOTRANSFERASE 23 U/L (15-37); BILIRUBIN,DIRECT 0.1 mg/dL (0.0-0.2); BILIRUBIN,TOTAL 0.4 mg/dL (0.2-1.0); CARBON DIOXIDE 29 mmol/L (21-32); CHLORIDE 102 mmol/L (98-107); CREATININE 1.3 mg/dL (0.6-1.3); GLUCOSE 100 mg/dL (74-106); POTASSIUM 4.2 mmol/L (3.5-5.1); SODIUM SERUM 138 mmol/L (136-145); TOTAL PROTEIN, SERUM 7.3 g/dL (6.4-8.2); UREA NITROGEN, BLOOD 12 mg/dL (7-18)
[2021-02-06 21:28] LABS: ACETAMINOPHEN < 10 ug/ml (10-30)
--- NOTE | 2021-02-06 21:44 | NUR ---
CLINICAL AND FACESHEET FAXED TO [facility] FOR VOLUNTARY PSYCH ADMISSION.
[2021-02-06 22:15] VITALS: BP 134/68
--- NOTE | 2021-02-07 00:17 | NUR ---
PT REFUSE TRANSFER AND WANTS TO LEAVE. PT REFUSE TO WAIT FOR D/C PAPERS. PT STATES "I KNOW THEY ARE NOT GOING TO TAKE ME COZ I JUST GOT DISCHARGED FROM THERE, I JUST NEEDED A PLACE TO REST FOR A BIT". PT LEFT ER.
== END 2021-02-07 00:21 | disposition home or self-care (01) ==
LOC: ER 19:00
DX: R45.851 Suicidal ideations (principal); Z59.0 Homelessness; I10 Essential (primary) hypertension; E11.9 Type 2 diabetes mellitus without complications; F20.0 Paranoid schizophrenia; Z88.5 Allergy status to narcotic agent; Z91.018 Allergy to other foods; Z20.822 Contact with and (suspected) exposure to COVID-19; Z53.29 Procedure and treatment not carried out because of patient's decision for other reasons
CPT/HCPCS: 36415; 80048; 80076; 80143; 80307; 80320; 81001; 85025; 87426; 99285; C9803; G0480

== ENCOUNTER 2021-02-07 21:57 | Emergency (ER) | payer OTHER ==
[~2021-02-07] VITALS: Ht 170.2 cm; Wt 108.9 kg
--- NOTE | 2021-02-07 22:15 | NUR ---
COVID SWAB COLLECTED AND SENT TO LAB.
--- NOTE | 2021-02-07 22:15 | NUR ---
URINE SAMPLE COLLECTED AND SENT TO LAB.
--- NOTE | 2021-02-07 22:20 | NUR ---
BLOOD DRAWN BY SODA TESTER.
[2021-02-07 22:26] LABS: BASOPHILS % (AUTO) 0.4 % (0.0-2.0); EOSINOPHILS % (AUTO) 1.8 % (0.0-6.0); HEMATOCRIT 37 % (39-51); HEMOGLOBIN 12.7 g/dL (13.5-17.5); LYMPHOCYTES # (AUTO) 2.4 K/uL (0.8-4.8); LYMPHOCYTES % (AUTO) 27.9 % (20.0-44.0); MEAN CORPUSCULAR HGB CONC 34 g/dl (31.0-36.0); MEAN CORPUSCULAR VOLUME 80 fL (80-96); MONOCYTES # (AUTO) 0.9 K/uL (0.1-1.30); NEUTROPHILS # (AUTO) 5.2 K/uL (1.8-8.9); NEUTROPHILS % (AUTO) 59.9 % (43.0-81.0); PLATELET COUNT (AUTO) 210 K/uL (150-450); RED BLOOD CELL COUNT(AUTO) 4.67 MIL/uL (4.5-6.0); WHITE BLOOD COUNT (AUTO) 8.8 K/uL (4.3-11.0)
[2021-02-07 22:36] LABS: BILIRUBIN,URINE Negative (NEGATIVE); COLOR,URINE YELLOW (YELLOW); LEUKOCYTE ESTERASE ,URINE Negative (NEGATIVE); NITRITE, URINE Negative (NEGATIVE); PROTEIN,URINE Trace mg/dl (NEGATIVE); UGLUCOSE Negative (NEGATIVE)
[2021-02-07 22:37] LABS: BACTERIA,URINE Rare /HPF (None Seen); RBC,URINE NONE SEEN /HPF (0-2); SQUAMOUS EPITHELIAL CELL,UR Few /HPF (None Seen); WBC,URINE NONE SEEN /HPF (0-3)
[2021-02-07 22:40] LABS: CARBON DIOXIDE 27 mmol/L (21-32); CHLORIDE 104 mmol/L (98-107); CREATININE 1.2 mg/dL (0.6-1.3); GLUCOSE 85 mg/dL (74-106); POTASSIUM 4.2 mmol/L (3.5-5.1); SODIUM SERUM 140 mmol/L (136-145); UREA NITROGEN, BLOOD 16 mg/dL (7-18)
[2021-02-07 22:55] LABS: ALANINE AMINOTRANSFERASE 24 U/L (12-78); ALBUMIN 3.9 g/dL (3.4-5.0); ALCOHOL, BLOOD 4 mg/dL (0-0); ALKALINE PHOSPHATASE 98 U/L (46-116); ASPARTATE AMINOTRANSFERASE 23 U/L (15-37); BILIRUBIN,DIRECT 0.2 mg/dL (0.0-0.2); BILIRUBIN,TOTAL 0.9 mg/dL (0.2-1.0); TOTAL PROTEIN, SERUM 7.9 g/dL (6.4-8.2)
[2021-02-07 22:58] LABS: ACETAMINOPHEN < 2 ug/ml (10-30)
--- NOTE | 2021-02-07 23:06 | NUR ---
CLINICAL AND FACESHEET FAXED TO [facility] INTAKE FOR VOLUNTARY PSYCH ADMISSION.
--- NOTE | 2021-02-08 02:17 | NUR ---
TRANSFER INFORMATION PT ACCEPTED TO [facility] MAHENDRA SANTOS ACCEPTING MD EDWARDS PHONE NUMBER FOR REPORT
--- NOTE | 2021-02-08 02:21 | NUR ---
TRANSPORT CALLED ([facility]) ETA 90MIN.
[2021-02-08 02:22] VITALS: BP 138/63
--- NOTE | 2021-02-08 03:12 | NUR ---
REPORT GIVEN TO VICKY MAXWELL FOR JEOVANY.
== END 2021-02-08 03:13 ==
LOC: ER 21:59
DX: R45.851 Suicidal ideations (principal); Z20.822 Contact with and (suspected) exposure to COVID-19; Z59.0 Homelessness; F17.200 Nicotine dependence, unspecified, uncomplicated; Z88.5 Allergy status to narcotic agent; Z91.018 Allergy to other foods; F20.0 Paranoid schizophrenia; G89.29 Other chronic pain; M54.9 Dorsalgia, unspecified; E11.9 Type 2 diabetes mellitus without complications; I10 Essential (primary) hypertension
CPT/HCPCS: 36415; 80048; 80076; 80143; 80307; 80320; 81001; 85025; 87426; 99285; C9803; G0480

== ENCOUNTER 2021-02-12 23:34 | Emergency (ER) | payer MEDICAID ==
[~2021-02-12] VITALS: Ht 170.2 cm; Wt 108.9 kg
[2021-02-13 00:05] VITALS: BP 169/101
[2021-02-13] MEDS ORDERED: HYDR-3980 PO (03:11)
== END 2021-02-13 03:27 | disposition home or self-care (01) ==
LOC: ER 23:34
DX: G89.29 Other chronic pain (principal); M54.5 Low back pain; Z76.0 Encounter for issue of repeat prescription; I10 Essential (primary) hypertension; E11.9 Type 2 diabetes mellitus without complications; F20.9 Schizophrenia, unspecified; F17.200 Nicotine dependence, unspecified, uncomplicated; Z98.890 Other specified postprocedural states; Z88.5 Allergy status to narcotic agent; Z91.018 Allergy to other foods; Z59.0 Homelessness

== ENCOUNTER 2021-02-21 20:00 | Emergency (ER) | payer MEDICAID ==
[~2021-02-21] VITALS: Ht 170.2 cm; Wt 108.9 kg
[~2021-02-21 20:00] MED LIST: HYDR-3980 PO
--- NOTE | 2021-02-21 20:00 | NUR ---
TO ER BED REQUESTING MEDICAL CLEARANCE FOR VOLUNTARY PSYCH ADMISSION. PT C/O SI WITH PLAN TO SHOOT SELF WITH A GUN. TAKES NORCO FOR CHRONIC LLE PAIN. DENIES HI. PT AAOX4 NO ACUTE DISTRESS NOTED, RESP EVEN AND UNLABORED. PT CALM AND COOPERATIVE AT THIS TIME.
--- NOTE | 2021-02-21 20:53 | NUR ---
URINE SAMPLE COLLECTED AND SENT TO LAB.
--- NOTE | 2021-02-21 21:09 | NUR ---
COVID SWAB COLLECTED AND SENT TO LAB.
[2021-02-21 21:11] LABS: BILIRUBIN,URINE SMALL (NEGATIVE); COLOR,URINE AMBER (YELLOW); LEUKOCYTE ESTERASE ,URINE Negative (NEGATIVE); NITRITE, URINE Negative (NEGATIVE); PH,URINE 5.5 (5.0-8.0); PROTEIN,URINE 30 mg/dl (NEGATIVE); UGLUCOSE Negative (NEGATIVE)
[2021-02-21 21:21] LABS: BASOPHILS # (AUTO) 0.1 K/uL (0.0-0.2); BASOPHILS % (AUTO) 0.7 % (0.0-2.0); EOSINOPHILS % (AUTO) 0.4 % (0.0-6.0); HEMATOCRIT 37 % (39-51); HEMOGLOBIN 12.7 g/dL (13.5-17.5); LYMPHOCYTES # (AUTO) 2.6 K/uL (0.8-4.8); LYMPHOCYTES % (AUTO) 19.4 % (20.0-44.0); MEAN CORPUSCULAR HGB CONC 34 g/dl (31.0-36.0); MEAN CORPUSCULAR VOLUME 79 fL (80-96); MONOCYTES # (AUTO) 1.4 K/uL (0.1-1.30); NEUTROPHILS # (AUTO) 9.5 K/uL (1.8-8.9); NEUTROPHILS % (AUTO) 69.5 % (43.0-81.0); PLATELET COUNT (AUTO) 192 K/uL (150-450); RED BLOOD CELL COUNT(AUTO) 4.71 MIL/uL (4.5-6.0); WHITE BLOOD COUNT (AUTO) 13.6 K/uL (4.3-11.0)
[2021-02-21 21:35] LABS: ALANINE AMINOTRANSFERASE 26 U/L (12-78); ALBUMIN 4.1 g/dL (3.4-5.0); ALCOHOL, BLOOD < 3 mg/dL (0-0); ALKALINE PHOSPHATASE 88 U/L (46-116); ASPARTATE AMINOTRANSFERASE 35 U/L (15-37); BILIRUBIN,DIRECT 0.4 mg/dL (0.0-0.2); BILIRUBIN,TOTAL 1.5 mg/dL (0.2-1.0); CALCIUM, SERUM 9.3 mg/dL (8.5-10.1); CARBON DIOXIDE 26 mmol/L (21-32); CHLORIDE 100 mmol/L (98-107); CREATININE 1.2 mg/dL (0.6-1.3); GLUCOSE 86 mg/dL (74-106); POTASSIUM 4.4 mmol/L (3.5-5.1); SODIUM SERUM 137 mmol/L (136-145); TOTAL PROTEIN, SERUM 8.2 g/dL (6.4-8.2); UREA NITROGEN, BLOOD 23 mg/dL (7-18)
[2021-02-21 21:42] LABS: ACETAMINOPHEN < 2 ug/ml (10-30)
[2021-02-21 21:44] LABS: BACTERIA,URINE Rare /HPF (None Seen); RBC,URINE NONE SEEN /HPF (0-2); SQUAMOUS EPITHELIAL CELL,UR Few /HPF (None Seen); WBC,URINE NONE SEEN /HPF (0-3)
--- NOTE | 2021-02-21 23:14 | NUR ---
PT ACCEPTED AT [facility] MAHENDRA SANTOS ACCEPTING MD EDWARDS PT WILL GO TO UNIT 2 PHONT NUMBER FOR REPORT
--- NOTE | 2021-02-22 00:02 | NUR ---
[facility] CALLED ETA 90MIN.
--- NOTE | 2021-02-22 00:46 | NUR ---
gave report to jeb Irwin for shola
[2021-02-22 01:02] VITALS: BP 148/93
--- NOTE | 2021-02-22 01:02 | NUR ---
[facility] AT BED SIDE TO CLAM BED LABORER THE PT
--- NOTE | 2021-02-22 01:07 | NUR ---
PT WAS PICKED UP BY AMB[facility] AND TRANSFERRED TO [facility] IN STABLE CONDITION.
== END 2021-02-22 01:08 ==
LOC: ER 20:06
DX: R45.851 Suicidal ideations (principal); D64.9 Anemia, unspecified; F19.10 Other psychoactive substance abuse, uncomplicated; F20.0 Paranoid schizophrenia; G89.29 Other chronic pain; M54.9 Dorsalgia, unspecified; I10 Essential (primary) hypertension; E11.9 Type 2 diabetes mellitus without complications; K74.60 Unspecified cirrhosis of liver; Z91.14 Patient's other noncompliance with medication regimen; Z59.0 Homelessness; D72.829 Elevated white blood cell count, unspecified; Z20.822 Contact with and (suspected) exposure to COVID-19; F17.200 Nicotine dependence, unspecified, uncomplicated
CPT/HCPCS: 36415; 80048; 80076; 80143; 80307; 80320; 81001; 85025; 87426; 99285; C9803; G0480

== ENCOUNTER 2021-03-08 03:49 | Emergency (ER) | payer MEDICAID ==
[~2021-03-08] VITALS: Ht 170.2 cm; Wt 108.9 kg
--- NOTE | 2021-03-08 03:51 | NUR ---
TO ER BED 14 REQUESTING MEDICAL CLEARANCE FOR VOLUNTARY PSYCH ADMISSION. PT C/O SI WITH PLAN TO RUN INTO TRAFFIC. DENIES HI. PT AAOX4 NO ACUTE DISTRESS NOTED, RESP EVEN AND UNLABORED. PT CALM AND COOPERATIVE AT THIS TIME. PLACE PT ON HOSPITAL GOWN, ALL BELONGINGS REMOVED FROM ROOM. 1;1 SITTER AT BEDSIDE.
--- NOTE | 2021-03-08 04:17 | NUR ---
blood collected and sent to the lab
--- NOTE | 2021-03-08 04:20 | NUR ---
covid test collected and sent to the lab.
[2021-03-08 04:26] LABS: BASOPHILS % (AUTO) 0.5 % (0.0-2.0); EOSINOPHILS % (AUTO) 2.4 % (0.0-6.0); HEMATOCRIT 36 % (39-51); HEMOGLOBIN 12.5 g/dL (13.5-17.5); LYMPHOCYTES # (AUTO) 1.9 K/uL (0.8-4.8); LYMPHOCYTES % (AUTO) 27.7 % (20.0-44.0); MEAN CORPUSCULAR HGB CONC 34 g/dl (31.0-36.0); MEAN CORPUSCULAR VOLUME 79 fL (80-96); MONOCYTES # (AUTO) 0.6 K/uL (0.1-1.30); MONOCYTES % (AUTO) 8.7 % (2.0-12.0); NEUTROPHILS # (AUTO) 4.2 K/uL (1.8-8.9); NEUTROPHILS % (AUTO) 60.7 % (43.0-81.0); PLATELET COUNT (AUTO) 178 K/uL (150-450); RED BLOOD CELL COUNT(AUTO) 4.57 MIL/uL (4.5-6.0); WHITE BLOOD COUNT (AUTO) 6.9 K/uL (4.3-11.0)
[2021-03-08 04:33] LABS: CALCIUM, SERUM 9.2 mg/dL (8.5-10.1); CARBON DIOXIDE 29 mmol/L (21-32); CHLORIDE 104 mmol/L (98-107); CREATININE 1.2 mg/dL (0.6-1.3); GLUCOSE 84 mg/dL (74-106); POTASSIUM 4.3 mmol/L (3.5-5.1); SODIUM SERUM 142 mmol/L (136-145); UREA NITROGEN, BLOOD 18 mg/dL (7-18)
[2021-03-08 04:39] LABS: ALANINE AMINOTRANSFERASE 24 U/L (12-78); ALBUMIN 4.2 g/dL (3.4-5.0); ALCOHOL, BLOOD < 3 mg/dL (0-0); ALKALINE PHOSPHATASE 87 U/L (46-116); ASPARTATE AMINOTRANSFERASE 23 U/L (15-37); BILIRUBIN,DIRECT 0.3 mg/dL (0.0-0.2); BILIRUBIN,TOTAL 0.8 mg/dL (0.2-1.0); TOTAL PROTEIN, SERUM 8.3 g/dL (6.4-8.2)
[2021-03-08 04:40] LABS: ACETAMINOPHEN 0 ug/ml (10-30)
[2021-03-08 04:43] LABS: BILIRUBIN,URINE Negative (NEGATIVE); COLOR,URINE YELLOW (YELLOW); LEUKOCYTE ESTERASE ,URINE Negative (NEGATIVE); NITRITE, URINE Negative (NEGATIVE); PH,URINE 7.5 (5.0-8.0); PROTEIN,URINE Trace mg/dl (NEGATIVE); UGLUCOSE Negative (NEGATIVE)
--- NOTE | 2021-03-08 06:26 | NUR ---
CLINICAL AND [facility] FOR [facility]YCH ADMISSION.
[2021-03-08 06:28] VITALS: BP 137/67
--- NOTE | 2021-03-08 09:20 | NUR ---
PT ACCEPTED AFTER [address] REAGAN CALL [phone] UNIT TWO FOR REPORT.
--- NOTE | 2021-03-08 15:04 | NUR ---
CALLED [facility] ETA OF 1600 PER CHENCHO
--- NOTE | 2021-03-08 16:32 | NUR ---
[facility] NEW ETA IS 15 MINS.
== END 2021-03-08 19:22 ==
LOC: ER 03:52
DX: R45.851 Suicidal ideations (principal); Z20.822 Contact with and (suspected) exposure to COVID-19; Z59.0 Homelessness; F19.10 Other psychoactive substance abuse, uncomplicated; Z88.5 Allergy status to narcotic agent; Z91.018 Allergy to other foods; I10 Essential (primary) hypertension; E11.9 Type 2 diabetes mellitus without complications; F20.0 Paranoid schizophrenia; G89.29 Other chronic pain; M54.9 Dorsalgia, unspecified; F10.10 Alcohol abuse, uncomplicated; Y90.0 Blood alcohol level of less than 20 mg/100 ml
CPT/HCPCS: 36415; 80048; 80076; 80143; 80307; 80320; 81003; 85025; 87426; 99285; C9803; G0480

== ENCOUNTER 2021-03-22 16:55 | Emergency (ER) | payer MEDICAID ==
[~2021-03-22] VITALS: Ht 167.6 cm; Wt 108.0 kg
--- NOTE | 2021-03-22 17:51 | NUR ---
"Want to go to [place] [facility]- Suicidal ideation- shoot self". PT AAOX4, VSS. RR EVEN & UNLABORED. DENIES CP, SOB, DIZZINESS, N/V, ABD PAIN AT THIS TIME. PT SEEN & EVAL'D BY DR. OROURKE. PT CALM & COOPERATIVE, NAD NOTED AT THIS TIME. SITTER AT BS & WILL CONT TO MONITOR.
[2021-03-22 18:11] LABS: BASOPHILS % (AUTO) 0.4 % (0.0-2.0); EOSINOPHILS % (AUTO) 1.4 % (0.0-6.0); HEMATOCRIT 38 % (39-51); HEMOGLOBIN 12.9 g/dL (13.5-17.5); LYMPHOCYTES # (AUTO) 2.6 K/uL (0.8-4.8); LYMPHOCYTES % (AUTO) 24.3 % (20.0-44.0); MEAN CORPUSCULAR HGB CONC 34 g/dl (31.0-36.0); MEAN CORPUSCULAR VOLUME 80 fL (80-96); MONOCYTES # (AUTO) 1.2 K/uL (0.1-1.30); MONOCYTES % (AUTO) 11.4 % (2.0-12.0); NEUTROPHILS # (AUTO) 6.6 K/uL (1.8-8.9); NEUTROPHILS % (AUTO) 62.5 % (43.0-81.0); PLATELET COUNT (AUTO) 179 K/uL (150-450); RED BLOOD CELL COUNT(AUTO) 4.71 MIL/uL (4.5-6.0); WHITE BLOOD COUNT (AUTO) 10.5 K/uL (4.3-11.0)
[2021-03-22 18:15] LABS: BILIRUBIN,URINE Negative (NEGATIVE); COLOR,URINE YELLOW (YELLOW); LEUKOCYTE ESTERASE ,URINE Negative (NEGATIVE); NITRITE, URINE Negative (NEGATIVE); PROTEIN,URINE Negative (NEGATIVE); UGLUCOSE Negative (NEGATIVE)
[2021-03-22 18:18] LABS: CALCIUM, SERUM 9.1 mg/dL (8.5-10.1); CARBON DIOXIDE 23 mmol/L (21-32); CHLORIDE 106 mmol/L (98-107); CREATININE 1.1 mg/dL (0.6-1.3); GLUCOSE 110 mg/dL (74-106); POTASSIUM 3.9 mmol/L (3.5-5.1); SODIUM SERUM 142 mmol/L (136-145); UREA NITROGEN, BLOOD 19 mg/dL (7-18)
[2021-03-22 18:24] LABS: ALANINE AMINOTRANSFERASE 28 U/L (12-78); ALBUMIN 4.1 g/dL (3.4-5.0); ALCOHOL, BLOOD 58 mg/dL (0-0); ALKALINE PHOSPHATASE 94 U/L (46-116); ASPARTATE AMINOTRANSFERASE 37 U/L (15-37); BILIRUBIN,DIRECT 0.2 mg/dL (0.0-0.2); BILIRUBIN,TOTAL 0.5 mg/dL (0.2-1.0); TOTAL PROTEIN, SERUM 8.1 g/dL (6.4-8.2)
[2021-03-22 18:29] LABS: ACETAMINOPHEN < 10 ug/ml (10-30)
--- NOTE | 2021-03-22 21:08 | NUR ---
FAXED FACESHEET AND CLINICALS TO [facility] INTAKE
--- NOTE | 2021-03-23 02:01 | NUR ---
Call [phone] for report.
--- NOTE | 2021-03-23 02:01 | NUR ---
Pt accepted at [facility] under the care of Dr. Díaz.
--- NOTE | 2021-03-23 02:25 | NUR ---
[facility] ETA 60-70 MIN.
--- NOTE | 2021-03-23 03:15 | NUR ---
CALL FOR REPORT
--- NOTE | 2021-03-23 03:49 | NUR ---
REPORT GIVEN TO ALISSA SALGADO
--- NOTE | 2021-03-23 05:20 | NUR ---
PT TRANSFERRED TO [facility] IN STABLE CONDITION. REPORT GIVEN TO EMT TIFFANIE. LATEST VS HR 93, O2 95%, T 96.8, BP 150/96.
[2021-03-23 05:36] VITALS: BP 140/90
== END 2021-03-23 05:37 ==
LOC: ER 17:02
DX: R45.851 Suicidal ideations (principal); F19.10 Other psychoactive substance abuse, uncomplicated; Z20.822 Contact with and (suspected) exposure to COVID-19; Z59.0 Homelessness; Z88.5 Allergy status to narcotic agent; Z91.018 Allergy to other foods; F20.0 Paranoid schizophrenia; K74.60 Unspecified cirrhosis of liver; E11.9 Type 2 diabetes mellitus without complications; I10 Essential (primary) hypertension; Z79.4 Long term (current) use of insulin; Z79.899 Other long term (current) drug therapy; Z72.89 Other problems related to lifestyle
CPT/HCPCS: 36415; 80048; 80076; 80143; 80307; 80320; 81003; 85025; 87426; 99285; C9803; G0480

== ENCOUNTER 2021-04-05 02:55 | Emergency (ER) | payer MEDICAID ==
[~2021-04-05] VITALS: Ht 170.2 cm; Wt 112.5 kg
--- NOTE | 2021-04-05 03:15 | NUR ---
PATIENT BIBS FOR C/O DEPRESSION W/ SI. PATIENT REQUESTING MEDICAL CLEARANCE FOR VOLUNTARY PSYCH ADMISSION. PATIENT IS A/O X 4, RR EVEN AND UNLABORED, NO SOB NOTED. PATIENT VSS.
--- NOTE | 2021-04-05 03:21 | NUR ---
URINE COLLECTED AND SENT TO LAB
--- NOTE | 2021-04-05 03:32 | NUR ---
COVID SWAB COLLECTED AND SENT TO LAB
[2021-04-05 03:34] LABS: BILIRUBIN,URINE Negative (NEGATIVE); COLOR,URINE YELLOW (YELLOW); LEUKOCYTE ESTERASE ,URINE Negative (NEGATIVE); NITRITE, URINE Negative (NEGATIVE); PH,URINE 6.5 (5.0-8.0); PROTEIN,URINE Negative (NEGATIVE); UGLUCOSE Negative (NEGATIVE); UROBILINOGEN,URINE 0.2 EU/dL (0.2)
[2021-04-05 03:45] LABS: BASOPHILS % (AUTO) 0.5 % (0.0-2.0); EOSINOPHILS % (AUTO) 2.2 % (0.0-6.0); HEMATOCRIT 41 % (39-51); LYMPHOCYTES # (AUTO) 2.1 K/uL (0.8-4.8); LYMPHOCYTES % (AUTO) 26.9 % (20.0-44.0); MEAN CORPUSCULAR HGB CONC 34 g/dl (31.0-36.0); MEAN CORPUSCULAR VOLUME 80 fL (80-96); MONOCYTES # (AUTO) 0.7 K/uL (0.1-1.30); MONOCYTES % (AUTO) 8.9 % (2.0-12.0); NEUTROPHILS # (AUTO) 4.7 K/uL (1.8-8.9); NEUTROPHILS % (AUTO) 61.5 % (43.0-81.0); PLATELET COUNT (AUTO) 156 K/uL (150-450); RED BLOOD CELL COUNT(AUTO) 5.07 MIL/uL (4.5-6.0); WHITE BLOOD COUNT (AUTO) 7.6 K/uL (4.3-11.0)
[2021-04-05 03:51] LABS: CALCIUM, SERUM 9.1 mg/dL (8.5-10.1); CREATININE 1.1 mg/dL (0.6-1.3); POTASSIUM 4.4 mmol/L (3.5-5.1)
[2021-04-05 04:05] LABS: ALBUMIN 4.2 g/dL (3.4-5.0); BILIRUBIN,DIRECT 0.2 mg/dL (0.0-0.2); BILIRUBIN,TOTAL 0.4 mg/dL (0.2-1.0); TOTAL PROTEIN, SERUM 8.7 g/dL (6.4-8.2)
--- NOTE | 2021-04-05 05:11 | NUR ---
FAXED CLINICALS AND FACE SHEET TO [facility]
--- NOTE | 2021-04-05 07:47 | NUR ---
THE PATIENT IS SLEEPING IN ER BED #14. IN ROOM AIR. RESPIRATION REGULAR AND UNLABORED. THE PATIENT IS IN NO APPARENT DISTRESS. WILL CONTINUE TO MONITOR THE PATIENT.
--- NOTE | 2021-04-05 07:56 | NUR ---
CALLED SO CHERIE HENDRICKSON FOLLOWING UP WITH FAXED CLINICALS. SO CHERIE DID CONFIRM THEY HAVE RECIEVED THEM. WILL FOLLOW UP IN THE NEXT HOUR OF 0756.
--- NOTE | 2021-04-05 10:33 | NUR ---
FOLLOWED UP WITH PATEL HENDRICKSON AND WAS NOTIFIED THAT THE PT REPORT WAS UNDER REVIEW.
--- NOTE | 2021-04-05 11:05 | NUR ---
SS consult SS consult requested for suicidal ideation. Pt is a 55-year-old, male. SW met with pt at his bedside in the emergency department. Pt was alert and oriented x4. Pt presented calm and cooperative. Pt appeared well-groomed and appropriately dressed. Pt was seated upright in his bed. Per chart, pt was brought in by self on 04/05/21 with complaints of feeling depressed with suicidal ideation. Pt was requesting voluntary psychiatric admission. Pt stated that he is currently living with friends and has a private residence located at [address] [place] [address]; [phone]. Pt stated that his current source of income is [employer]. Pt stated that he has access to social support from friends. Pt denied hx of substance abuse. SW assessed pts history of mental illness. Pt stated that he has a history of Schizoaffective Disorder. Pt stated that he has not taken psychotropic medications recently and obtains his Rx when admitted to hospitals. Pt reported hx of visual hallucinations and stated that he sees shadows or people following him. Pt reported no current hallucinations. Pt is experiencing SI without a plan and requested voluntary psychiatric admission. NATHAN offered the pt mental health resources. Pt declined the resources but thanked SW for offering. ALISSA Farr had faxed clinicals to [facility], for review. PLAN: Clinicals were faxed to [facility], for review. No further SS intervention at this time, however, SW will remain available as needed.
--- NOTE | 2021-04-05 15:31 | NUR ---
SS note Pt has been accepted to [facility]. Call in to report after 1600.
--- NOTE | 2021-04-05 16:14 | NUR ---
REPORT GIVEN TO NURSE NARVAEZ FROM [facility].
--- NOTE | 2021-04-05 16:17 | NUR ---
CALLED [facility] ETA 1830
--- NOTE | 2021-04-05 19:07 | NUR ---
THE PATIENT IS TAKEN TO [facility] IN STABLE CONDITION VIA ARRANGED TRANSPO
[2021-04-05 19:08] VITALS: BP 145/85
== END 2021-04-05 19:08 ==
LOC: ER 03:05
DX: R45.851 Suicidal ideations (principal); F20.0 Paranoid schizophrenia; Z82.49 Family history of ischemic heart disease and other diseases of the circulatory system; Z59.0 Homelessness; E11.9 Type 2 diabetes mellitus without complications; G89.29 Other chronic pain; M54.9 Dorsalgia, unspecified
CPT/HCPCS: 36415; 80048; 80076; 80143; 80307; 80320; 81003; 85025; 87426; 99285; C9803; G0480

== ENCOUNTER 2021-04-14 17:40 | Emergency (ER) | payer MEDICAID ==
[~2021-04-14] VITALS: Ht 170.2 cm; Wt 110.2 kg
[2021-04-14 18:59] VITALS: BP 152/100
--- NOTE | 2021-04-14 19:07 | NUR ---
BIBS FOR C/O REQUESTING NORCO REFILLS FOR CHRONIC BACK PAIN. RATES PAIN 02/19. WILL CONTINUE TO MONITOR THE PATIENT.
[2021-04-14] MEDS ORDERED: HYDR-3976 PO (19:18)
--- NOTE | 2021-04-14 19:21 | NUR ---
Patient discharged to home in stable condition. Written and verbal after care instructions given. Patient verbalizes understanding of instruction.
== END 2021-04-14 19:22 | disposition home or self-care (01) ==
LOC: ER 17:42
DX: G89.29 Other chronic pain (principal); I10 Essential (primary) hypertension; E11.9 Type 2 diabetes mellitus without complications; F20.0 Paranoid schizophrenia; F17.200 Nicotine dependence, unspecified, uncomplicated; Z98.890 Other specified postprocedural states; Z59.00 Homelessness unspecified; Z79.899 Other long term (current) drug therapy

== ENCOUNTER 2021-04-15 17:41 | Emergency (ER) | payer MEDICAID ==
[~2021-04-15] VITALS: Ht 170.2 cm; Wt 83.9 kg
[~2021-04-15 17:41] MED LIST changes: +HYDR-3976 PO
[2021-04-15 19:16] LABS: BILIRUBIN,URINE Negative (NEGATIVE); COLOR,URINE YELLOW (YELLOW); LEUKOCYTE ESTERASE ,URINE Negative (NEGATIVE); NITRITE, URINE Negative (NEGATIVE); PH,URINE 6.5 (5.0-8.0); PROTEIN,URINE >=300 mg/dl (NEGATIVE); UGLUCOSE 100 MG/DL mg/dL (NEGATIVE)
[2021-04-15 19:24] LABS: BACTERIA,URINE Rare /HPF (None Seen); SQUAMOUS EPITHELIAL CELL,UR Few /HPF (None Seen); WBC,URINE NONE SEEN /HPF (0-3)
[2021-04-15 19:57] LABS: BASOPHILS % (AUTO) 0.3 % (0.0-2.0); EOSINOPHILS % (AUTO) 0.1 % (0.0-6.0); HEMATOCRIT 48 % (39-51); LYMPHOCYTES # (AUTO) 2.4 K/uL (0.8-4.8); MEAN CORPUSCULAR HGB CONC 33 g/dl (31.0-36.0); MEAN CORPUSCULAR VOLUME 82 fL (80-96); MONOCYTES # (AUTO) 1.3 K/uL (0.1-1.30); MONOCYTES % (AUTO) 9.9 % (2.0-12.0); NEUTROPHILS % (AUTO) 70.7 % (43.0-81.0); PLATELET COUNT (AUTO) 253 K/uL (150-450); RED BLOOD CELL COUNT(AUTO) 5.88 MIL/uL (4.5-6.0); WHITE BLOOD COUNT (AUTO) 12.7 K/uL (4.3-11.0)
[2021-04-15 19:58] LABS: CARBON DIOXIDE 27 mmol/L (21-32); CHLORIDE 100 mmol/L (98-107); CREATININE 1.2 mg/dL (0.6-1.3); GLUCOSE 102 mg/dL (74-106); POTASSIUM 4.1 mmol/L (3.5-5.1); SODIUM SERUM 137 mmol/L (136-145); UREA NITROGEN, BLOOD 16 mg/dL (7-18)
[2021-04-15 20:00] LABS: CALCIUM, SERUM 9.3 mg/dL (8.5-10.1)
[2021-04-15 20:04] LABS: ALANINE AMINOTRANSFERASE 29 U/L (12-78); ALBUMIN 4.8 g/dL (3.4-5.0); ALCOHOL, BLOOD < 3 mg/dL (0-0); ALKALINE PHOSPHATASE 109 U/L (46-116); ASPARTATE AMINOTRANSFERASE 28 U/L (15-37); BILIRUBIN,DIRECT 0.3 mg/dL (0.0-0.2); TOTAL PROTEIN, SERUM 9.8 g/dL (6.4-8.2)
[2021-04-15 20:07] LABS: ACETAMINOPHEN < 2 ug/ml (10-30)
--- NOTE | 2021-04-15 21:22 | NUR ---
CALLED TO BRING IN TRIAGE ROOM FOR EKG. NOT IN WAITING ROOM.
[2021-04-15] MEDS ORDERED: HYDROCODONE/APAP 10/325MG TABLET ONE (23:09)
[2021-04-15] MEDS ORDERED: HYDROCODONE/APAP 10/325MG TABLET PO ONE (23:30)
[2021-04-15] MEDS ORDERED: NIFEdipine XL (30MG) 30 MG TAB PO ONE (23:32)
[2021-04-15] MEDS: NIFEdipine XL (30MG) 30 MG TAB PO SCH (23:36)
--- NOTE | 2021-04-15 23:36 | NUR ---
PROCARDIA XL 30MG WAS TAKEN FROM [facility] D/T MED NOT AVAILABLE IN ER
--- NOTE | 2021-04-15 23:53 | NUR ---
CALLED NHAN FOR X RAY READ
--- NOTE | 2021-04-16 00:45 | NUR ---
Patient is resting comfortably in bed with eyes closed. Easily aroused. VSS
[2021-04-16] MEDS ORDERED: CLONIDINE HCL 0.1 MG TABLET ONE (01:50)
[2021-04-16] MEDS ORDERED: CLONIDINE HCL 0.1 MG TABLET PO ONE (02:00)
--- NOTE | 2021-04-16 02:15 | NUR ---
pt watching tv, vss
--- NOTE | 2021-04-16 03:45 | NUR ---
pt sitting quietly, watching tv. vss
--- NOTE | 2021-04-16 04:26 | NUR ---
Patient is resting comfortably in bed with eyes closed. Easily aroused. VSS
--- NOTE | 2021-04-16 06:51 | NUR ---
Patient is resting comfortably in bed with eyes closed. Easily aroused. VSS
--- NOTE | 2021-04-16 15:00 | NUR ---
SW called [facility] regarding status of admission and they request clinicals to be refaxed. SW faxed clinicals to [facility].
[2021-04-16] MEDS: NIFEdipine XL (30MG) 30 MG TAB PO SCH (17:00)
--- NOTE | 2021-04-16 23:45 | NUR ---
CLININCALS AND FACE SHEET WS FAXED TO [facility], CONFIRMED RESULT W/ ART
--- NOTE | 2021-04-17 02:02 | NUR ---
PT IS ACCETPED AT [facility] UNDER THE CARE OF DR. MORTON. PT IS GOING TO UNIT 2. CALL [phone] FOR REPORT.
--- NOTE | 2021-04-17 02:06 | NUR ---
REPORT GIVEN TO ALISSA BERNARDO FOR JEOVANY
--- NOTE | 2021-04-17 02:08 | NUR ---
ETA FOR PICKUP VIA [facility] IS 1 HOUR TO 1 HOUR 30 MINS. TRANSPORTING TO [facility].
--- NOTE | 2021-04-17 03:01 | NUR ---
[facility] AT BEDSIDE FOR PT TRANSPORT TO [facility]. PT IS IN STABLE CONDITION FOR TRANSPORT. NAD NOTED.
[2021-04-17 03:04] VITALS: BP 146/81
--- NOTE | 2021-04-17 03:05 | NUR ---
PT LEFT ON GURNEY WITH 2 AMBULANCE.
== END 2021-04-17 03:07 ==
LOC: ER 17:43
DX: R45.851 Suicidal ideations (principal); R31.29 Other microscopic hematuria; R00.0 Tachycardia, unspecified; I10 Essential (primary) hypertension; R94.31 Abnormal electrocardiogram [ECG] [EKG]; Z82.49 Family history of ischemic heart disease and other diseases of the circulatory system; F20.0 Paranoid schizophrenia; Z59.00 Homelessness unspecified; K74.60 Unspecified cirrhosis of liver; Z20.822 Contact with and (suspected) exposure to COVID-19
CPT/HCPCS: 36415; 71045; 80048; 80076; 80143; 80307; 80320; 81001; 84484; 85025; 87426; 93005; 99285; C9803; G0480

== ENCOUNTER 2021-05-09 19:58 | Emergency (ER) | payer MEDICAID ==
[~2021-05-09] VITALS: Ht 170.2 cm; Wt 111.1 kg
[2021-05-09 22:18] VITALS: BP 132/76
== END 2021-05-09 22:32 | disposition home or self-care (01) ==
LOC: ER 20:01
DX: G89.29 Other chronic pain (principal); M54.9 Dorsalgia, unspecified; Z76.0 Encounter for issue of repeat prescription; I10 Essential (primary) hypertension; E11.9 Type 2 diabetes mellitus without complications; F20.9 Schizophrenia, unspecified; F17.200 Nicotine dependence, unspecified, uncomplicated; Z98.890 Other specified postprocedural states; Z59.00 Homelessness unspecified

== ENCOUNTER 2021-05-10 17:32 | Emergency (ER) | payer MEDICAID ==
[~2021-05-10] VITALS: Ht 170.2 cm; Wt 110.2 kg
[2021-05-10 18:50] LABS: BILIRUBIN,URINE NEGATIVE (NEGATIVE); COLOR,URINE YELLOW (YELLOW); LEUKOCYTE ESTERASE ,URINE NEGATIVE (NEGATIVE); NITRITE, URINE NEGATIVE (NEGATIVE); PH,URINE 7.5 (5.0-8.0); PROTEIN,URINE NEGATIVE (NEGATIVE); UGLUCOSE NEGATIVE (NEGATIVE)
[2021-05-10 19:05] LABS: CALCIUM, SERUM 9.6 mg/dL (8.5-10.1); CARBON DIOXIDE 24 mmol/L (21-32); CHLORIDE 103 mmol/L (98-107); CREATININE 1.2 mg/dL (0.6-1.3); GLUCOSE 105 mg/dL (74-106); POTASSIUM 4.1 mmol/L (3.5-5.1); SODIUM SERUM 137 mmol/L (136-145); UREA NITROGEN, BLOOD 21 mg/dL (7-18)
[2021-05-10 19:07] LABS: BACTERIA,URINE None seen /HPF (None Seen); RBC,URINE 0-2 /HPF (0-2); SQUAMOUS EPITHELIAL CELL,UR 0-2 /HPF (None Seen); WBC,URINE 0-2 /HPF (0-3)
[2021-05-10 19:19] LABS: ALANINE AMINOTRANSFERASE 32 U/L (12-78); ALBUMIN 4.1 g/dL (3.4-5.0); ALKALINE PHOSPHATASE 111 U/L (46-116); ASPARTATE AMINOTRANSFERASE 26 U/L (15-37); BILIRUBIN,DIRECT 0.2 mg/dL (0.0-0.2); BILIRUBIN,TOTAL 0.6 mg/dL (0.2-1.0); TOTAL PROTEIN, SERUM 8.3 g/dL (6.4-8.2)
[2021-05-10 19:20] LABS: ACETAMINOPHEN < 0 ug/ml (10-30); ALCOHOL, BLOOD < 0 mg/dL (0-0)
[2021-05-10 19:52] LABS: BASOPHILS % (AUTO) 0.4 % (0.0-2.0); EOSINOPHILS % (AUTO) 2.4 % (0.0-6.0); HEMATOCRIT 39 % (39-51); HEMOGLOBIN 13.5 g/dL (13.5-17.5); LYMPHOCYTES # (AUTO) 2.2 K/uL (0.8-4.8); MEAN CORPUSCULAR HGB CONC 35 g/dl (31.0-36.0); MEAN CORPUSCULAR VOLUME 80 fL (80-96); MONOCYTES # (AUTO) 0.8 K/uL (0.1-1.30); MONOCYTES % (AUTO) 10.1 % (2.0-12.0); NEUTROPHILS % (AUTO) 60.1 % (43.0-81.0); PLATELET COUNT (AUTO) 261 K/uL (150-450); RED BLOOD CELL COUNT(AUTO) 4.91 MIL/uL (4.5-6.0); WHITE BLOOD COUNT (AUTO) 8.3 K/uL (4.3-11.0)
--- NOTE | 2021-05-10 20:45 | NUR ---
FACESHEET AND CLINICALS FAXED TO [facility].
--- NOTE | 2021-05-10 22:30 | NUR ---
PT ACCEPTED TO [facility] BY DR REAGAN. # FOR REPORT [phone].
--- NOTE | 2021-05-10 22:34 | NUR ---
[facility] ETA 2 HRS
--- NOTE | 2021-05-11 01:18 | NUR ---
REPORT GIVEN TO VICKY
[2021-05-11 01:19] VITALS: BP 136/90
== END 2021-05-11 01:19 ==
LOC: ER 18:26
DX: F32.A Depression, unspecified (principal); R45.851 Suicidal ideations; F20.0 Paranoid schizophrenia; R79.89 Other specified abnormal findings of blood chemistry; Z20.822 Contact with and (suspected) exposure to COVID-19; E11.9 Type 2 diabetes mellitus without complications; K74.60 Unspecified cirrhosis of liver; I10 Essential (primary) hypertension; G89.29 Other chronic pain; M54.9 Dorsalgia, unspecified; F17.200 Nicotine dependence, unspecified, uncomplicated
CPT/HCPCS: 36415; 80048; 80076; 80143; 80307; 80320; 81001; 85025; 87426; 99285; C9803; G0480

== ENCOUNTER 2021-05-15 14:00 | Emergency (ER) | payer MEDICAID ==
[~2021-05-15] VITALS: Ht 170.2 cm; Wt 108.0 kg
--- NOTE | 2021-05-15 14:01 | NUR ---
TO ER BED 4, C/O WORSENING LEFT SIDED CHEST PAIN X 2 HOURS, NON RADIATING, AAOX3, BREATHING EVEN AND NON LABORED, CONNECTED TO MONITOR, CHANGED INTO A GOWN
--- NOTE | 2021-05-15 15:43 | NUR ---
AWAITING MIDLINE INSERTION
--- NOTE | 2021-05-15 15:55 | NUR ---
UNABLE TO GIVE URINE AT THIS TIME
--- NOTE | 2021-05-15 16:16 | NUR ---
URINE COLLECTED AND SENT TO LAB
--- NOTE | 2021-05-15 16:27 | NUR ---
MIDLINE NURSE AT BEDSIDE
[2021-05-15 17:08] LABS: BASOPHILS % (AUTO) 0.5 % (0.0-2.0); EOSINOPHILS % (AUTO) 0.9 % (0.0-6.0); HEMATOCRIT 39 % (39-51); HEMOGLOBIN 13.5 g/dL (13.5-17.5); LYMPHOCYTES % (AUTO) 19.1 % (20.0-44.0); MEAN CORPUSCULAR HGB CONC 34 g/dl (31.0-36.0); MEAN CORPUSCULAR VOLUME 80 fL (80-96); MONOCYTES % (AUTO) 9.9 % (2.0-12.0); NEUTROPHILS # (AUTO) 7.3 K/uL (1.8-8.9); NEUTROPHILS % (AUTO) 69.6 % (43.0-81.0); PLATELET COUNT (AUTO) 234 K/uL (150-450); RED BLOOD CELL COUNT(AUTO) 4.92 MIL/uL (4.5-6.0); WHITE BLOOD COUNT (AUTO) 10.5 K/uL (4.3-11.0)
[2021-05-15 17:22] LABS: CARBON DIOXIDE 28 mmol/L (21-32); CHLORIDE 103 mmol/L (98-107); CREATININE 1.3 mg/dL (0.6-1.3); GLUCOSE 79 mg/dL (74-106); POTASSIUM 4.4 mmol/L (3.5-5.1); SODIUM SERUM 139 mmol/L (136-145); UREA NITROGEN, BLOOD 26 mg/dL (7-18)
--- NOTE | 2021-05-15 18:20 | NUR ---
RELAYED TO DR VILLA THAT TROPONIN IS NEGATIVE
--- NOTE | 2021-05-15 18:55 | NUR ---
BLOOD SENT TO LAB
[2021-05-15] MEDS ORDERED: KETOROLAC TROMETHAMINE INJ 30 MG/ML VIAL IV ONE (19:00)
[2021-05-15] MEDS ORDERED: KETOROLAC TROMETHAMINE 15 MG/ML VIAL ONE (19:04)
[2021-05-15] MEDS ORDERED: IBUP-1955 PO (19:21)
[2021-05-15 19:55] VITALS: BP 135/88
--- NOTE | 2021-05-15 19:55 | NUR ---
Patient discharged to home in stable condition. Written and verbal after care instructions given. Patient verbalizes understanding of instruction. RX given
== END 2021-05-15 19:59 | disposition home or self-care (01) ==
LOC: ER 14:10
DX: R07.89 Other chest pain (principal); R94.31 Abnormal electrocardiogram [ECG] [EKG]; I10 Essential (primary) hypertension; E78.5 Hyperlipidemia, unspecified; G89.29 Other chronic pain; F20.9 Schizophrenia, unspecified; E11.9 Type 2 diabetes mellitus without complications; F17.200 Nicotine dependence, unspecified, uncomplicated; Z98.890 Other specified postprocedural states; Z60.2 Problems related to living alone; Z79.899 Other long term (current) drug therapy
CPT/HCPCS: 36410; 36415; 71045; 80048; 80307; 84484 ×2; 85025; 93005 ×3; 96374; 99285; J1885

== ENCOUNTER 2021-05-21 01:53 | Emergency (ER) | payer MEDICAID ==
[~2021-05-21] VITALS: Ht 170.2 cm; Wt 104.8 kg
[~2021-05-21 01:53] MED LIST changes: +IBUP-1955 PO
--- NOTE | 2021-05-21 02:22 | NUR ---
PT AAOX4. BIBSELF C/O SI WITH PLAN TO JUMP IN FRONT OF A BUS AND BACK PAIN/ PLACED IN BED 19 ON MONITOR AND PULSE OX. AWAITING ER MD FOR EVAL.
--- NOTE | 2021-05-21 02:47 | NUR ---
URINE AND COVID SWAB SENT TO LAB
[2021-05-21 02:53] LABS: BILIRUBIN,URINE NEGATIVE (NEGATIVE); COLOR,URINE YELLOW (YELLOW); LEUKOCYTE ESTERASE ,URINE NEGATIVE (NEGATIVE); NITRITE, URINE NEGATIVE (NEGATIVE); PROTEIN,URINE NEGATIVE (NEGATIVE); UGLUCOSE NEGATIVE (NEGATIVE)
[2021-05-21 02:53] LABS: BASOPHILS % (AUTO) 0.4 % (0.0-2.0); EOSINOPHILS % (AUTO) 2.6 % (0.0-6.0); HEMATOCRIT 40 % (39-51); HEMOGLOBIN 13.6 g/dL (13.5-17.5); LYMPHOCYTES # (AUTO) 1.7 K/uL (0.8-4.8); LYMPHOCYTES % (AUTO) 21.4 % (20.0-44.0); MEAN CORPUSCULAR HGB CONC 34 g/dl (31.0-36.0); MEAN CORPUSCULAR VOLUME 80 fL (80-96); MONOCYTES # (AUTO) 0.8 K/uL (0.1-1.30); NEUTROPHILS # (AUTO) 5.2 K/uL (1.8-8.9); NEUTROPHILS % (AUTO) 65.6 % (43.0-81.0); PLATELET COUNT (AUTO) 183 K/uL (150-450); RED BLOOD CELL COUNT(AUTO) 4.94 MIL/uL (4.5-6.0)
[2021-05-21] MEDS ORDERED: HYDROCODONE/APAP 5/325MG TABLET ONE (03:09)
[2021-05-21] MEDS: HYDROCODONE/APAP 5/325MG TABLET PO ONE (03:13)
[2021-05-21 03:15] LABS: CALCIUM, SERUM 9.1 mg/dL (8.5-10.1); CARBON DIOXIDE 30 mmol/L (21-32); CHLORIDE 103 mmol/L (98-107); CREATININE 1.1 mg/dL (0.6-1.3); GLUCOSE 129 mg/dL (74-106); POTASSIUM 4.5 mmol/L (3.5-5.1); SODIUM SERUM 139 mmol/L (136-145); UREA NITROGEN, BLOOD 15 mg/dL (7-18)
[2021-05-21 03:20] LABS: ALANINE AMINOTRANSFERASE 38 U/L (12-78); ALKALINE PHOSPHATASE 125 U/L (46-116); ASPARTATE AMINOTRANSFERASE 30 U/L (15-37); BILIRUBIN,DIRECT 0.2 mg/dL (0.0-0.2); BILIRUBIN,TOTAL 0.4 mg/dL (0.2-1.0); TOTAL PROTEIN, SERUM 8.4 g/dL (6.4-8.2)
[2021-05-21 03:21] LABS: ACETAMINOPHEN 0 ug/ml (10-30); ALCOHOL, BLOOD < 3 mg/dL (0-0)
[2021-05-21] MEDS ORDERED: OXYC-128 PO (04:12)
[2021-05-21 04:13] LABS: BACTERIA,URINE None seen /HPF (None Seen); RBC,URINE 0-2 /HPF (0-2); SQUAMOUS EPITHELIAL CELL,UR Few /HPF (None Seen); WBC,URINE 0-2 /HPF (0-3)
--- NOTE | 2021-05-21 05:24 | NUR ---
FACESHEET AND CLINICALS FAXED TO [facility].
--- NOTE | 2021-05-21 08:36 | NUR ---
PT WILL BE ACCEPTED TO [facility] AFTER [address] CARE OF DR[address] HARDING NUMBER FOR REPORT- [phone]
--- NOTE | 2021-05-21 08:39 | NUR ---
CALLED [facility] AND SET UP BLS TRANSPORT FOR PT. ETA 1100
[2021-05-21 11:00] VITALS: BP 142/98
--- NOTE | 2021-05-21 11:03 | NUR ---
TRIED GIVING A REPORT, SPOKE TO SYEDA, WAS TOLD TO CALL LATER
--- NOTE | 2021-05-21 11:13 | NUR ---
REPORT GIVEN TO ALVAREZAL
--- NOTE | 2021-05-21 11:15 | NUR ---
PICKED UP BY [facility], TRANSPORTED TO [facility] IN STABLE CONDITION
== END 2021-05-21 11:41 ==
LOC: ER 01:55
DX: F32.9 Major depressive disorder, single episode, unspecified (principal); R45.851 Suicidal ideations; G89.29 Other chronic pain; M54.9 Dorsalgia, unspecified; F20.0 Paranoid schizophrenia; F17.200 Nicotine dependence, unspecified, uncomplicated; Z20.822 Contact with and (suspected) exposure to COVID-19
CPT/HCPCS: 36415; 80048; 80076; 80143; 80307; 80320; 81001; 85025; 87426; 99285; C9803; G0480

== ENCOUNTER 2021-06-04 01:51 | Emergency (ER) | payer MEDICAID ==
[~2021-06-04] VITALS: Ht 170.2 cm; Wt 105.7 kg
[~2021-06-04 01:51] MED LIST changes: +OXYC-128 PO
[2021-06-04] MEDS ORDERED: HYDROCODONE/APAP 5/325MG TABLET ONE (03:54)
[2021-06-04] MEDS: HYDROCODONE/APAP 5/325MG TABLET PO ONE (03:56)
[2021-06-04] MEDS ORDERED: AMLODIPINE BESYLATE 5 MG TABLET ONE (04:05)
[2021-06-04] MEDS: LISINOPRIL (10MG) 10 MG TABLET PO SCH (04:08)
[2021-06-04 04:09] VITALS: BP 166/112
[2021-06-04] MEDS: AMLODIPINE BESYLATE 5 MG TABLET PO ONE (04:09)
[2021-06-04] MEDS ORDERED: IBUP-1955 PO (04:10)
== END 2021-06-04 04:39 | disposition home or self-care (01) ==
LOC: ER 02:11
DX: G89.29 Other chronic pain (principal); M54.50 Low back pain, unspecified; I10 Essential (primary) hypertension; F20.9 Schizophrenia, unspecified; F17.200 Nicotine dependence, unspecified, uncomplicated; Z59.00 Homelessness unspecified; Z98.890 Other specified postprocedural states; Z60.2 Problems related to living alone; Z79.899 Other long term (current) drug therapy

== ENCOUNTER 2021-06-04 19:50 | Emergency (ER) | payer MEDICAID ==
[~2021-06-04] VITALS: Ht 170.2 cm; Wt 111.1 kg
--- NOTE | 2021-06-04 20:26 | NUR ---
CALLED FOR TRIAGE, NO ANSWER.
[2021-06-04 22:05] VITALS: BP 157/89
== END 2021-06-04 22:19 | disposition home or self-care (01) ==
LOC: ER 20:09
DX: G89.29 Other chronic pain (principal); M54.9 Dorsalgia, unspecified; I10 Essential (primary) hypertension; F20.9 Schizophrenia, unspecified; E11.9 Type 2 diabetes mellitus without complications; F17.200 Nicotine dependence, unspecified, uncomplicated; Z59.00 Homelessness unspecified; Z98.890 Other specified postprocedural states; Z60.2 Problems related to living alone; Z79.899 Other long term (current) drug therapy

== ENCOUNTER 2021-06-05 18:05 | Emergency (ER) | payer MEDICAID ==
[~2021-06-05] VITALS: Ht 170.2 cm; Wt 110.7 kg
--- NOTE | 2021-06-05 18:29 | NUR ---
PT FROM HOME C/O DEPRESSED, FEELING SUICIDAL W/ PLAN TO JUMP IN FRONT OF A TRAIN REQUESTING VOL PSYCH ADMISSION TO [facility]. PT A/OX4. TOLERATING R/A WELL WITH NO SOB. 1:1 SITTER SAFETY MEASURES IN PLACE
[2021-06-05 19:08] LABS: BASOPHILS # (AUTO) 0.1 K/uL (0.0-0.2); BASOPHILS % (AUTO) 0.7 % (0.0-2.0); EOSINOPHILS % (AUTO) 1.1 % (0.0-6.0); HEMATOCRIT 40 % (39-51); HEMOGLOBIN 13.6 g/dL (13.5-17.5); LYMPHOCYTES # (AUTO) 2.8 K/uL (0.8-4.8); LYMPHOCYTES % (AUTO) 24.5 % (20.0-44.0); MEAN CORPUSCULAR HGB CONC 34 g/dl (31.0-36.0); MEAN CORPUSCULAR VOLUME 79 fL (80-96); MONOCYTES # (AUTO) 1.1 K/uL (0.1-1.30); MONOCYTES % (AUTO) 9.9 % (2.0-12.0); NEUTROPHILS # (AUTO) 7.4 K/uL (1.8-8.9); NEUTROPHILS % (AUTO) 63.8 % (43.0-81.0); PLATELET COUNT (AUTO) 247 K/uL (150-450); RED BLOOD CELL COUNT(AUTO) 5.08 MIL/uL (4.5-6.0); WHITE BLOOD COUNT (AUTO) 11.6 K/uL (4.3-11.0)
--- NOTE | 2021-06-05 19:11 | NUR ---
COVID SWAB DONE AND SENT TO THE LAB
[2021-06-05 19:43] LABS: BILIRUBIN,URINE NEGATIVE (NEGATIVE); COLOR,URINE YELLOW (YELLOW); LEUKOCYTE ESTERASE ,URINE NEGATIVE (NEGATIVE); NITRITE, URINE NEGATIVE (NEGATIVE); PH,URINE 7.5 (5.0-8.0); PROTEIN,URINE NEGATIVE (NEGATIVE); UGLUCOSE NEGATIVE (NEGATIVE)
[2021-06-05 19:57] LABS: BACTERIA,URINE None seen /HPF (None Seen); RBC,URINE 0-2 /HPF (0-2); SQUAMOUS EPITHELIAL CELL,UR 0-2 /HPF (None Seen); WBC,URINE 0-2 /HPF (0-3)
[2021-06-05 20:02] LABS: ALANINE AMINOTRANSFERASE 32 U/L (12-78); ALBUMIN 4.2 g/dL (3.4-5.0); ALCOHOL, BLOOD < 3 mg/dL (0-0); ALKALINE PHOSPHATASE 101 U/L (46-116); ASPARTATE AMINOTRANSFERASE 37 U/L (15-37); BILIRUBIN,DIRECT 0.2 mg/dL (0.0-0.2); BILIRUBIN,TOTAL 0.8 mg/dL (0.2-1.0); CALCIUM, SERUM 9.1 mg/dL (8.5-10.1); CARBON DIOXIDE 25 mmol/L (21-32); CHLORIDE 104 mmol/L (98-107); CREATININE 1.3 mg/dL (0.6-1.3); GLUCOSE 96 mg/dL (74-106); POTASSIUM 4.1 mmol/L (3.5-5.1); SODIUM SERUM 141 mmol/L (136-145); TOTAL PROTEIN, SERUM 8.3 g/dL (6.4-8.2); UREA NITROGEN, BLOOD 23 mg/dL (7-18)
[2021-06-05 20:06] LABS: ACETAMINOPHEN 0 ug/ml (10-30)
--- NOTE | 2021-06-05 22:05 | NUR ---
FACESHEET AND CLINICALS FAXED TO [facility].
[2021-06-06 01:30] VITALS: BP 134/85
--- NOTE | 2021-06-06 02:05 | NUR ---
PT ACCEPTED TO [facility]. CALL REPORT [phone] EXT [phone]. RM WILL BE GIVEN UPON REPORT
--- NOTE | 2021-06-06 02:13 | NUR ---
CALLED [facility], ETA 10 MIN
--- NOTE | 2021-06-06 02:22 | NUR ---
GAVE REEPORT TO ALISSA TOLBERT FOR JEOVANY. PT GOING TO RM [id number]
--- NOTE | 2021-06-06 02:26 | NUR ---
[facility] AT BED SIDE TO RUBBER STAMPS AND DIES SUPERVISOR THE PT
--- NOTE | 2021-06-06 02:26 | NUR ---
GAVE REPORT TO EMS
== END 2021-06-06 02:26 ==
LOC: ER 18:12
DX: R45.851 Suicidal ideations (principal); F20.0 Paranoid schizophrenia; E11.9 Type 2 diabetes mellitus without complications; F32.A Depression, unspecified; Z20.822 Contact with and (suspected) exposure to COVID-19; I10 Essential (primary) hypertension; F17.200 Nicotine dependence, unspecified, uncomplicated; G89.29 Other chronic pain; M54.9 Dorsalgia, unspecified
CPT/HCPCS: 36415; 80048; 80076; 80143; 80307; 80320; 81001; 85025; 87426; 99285; C9803; G0480

== ENCOUNTER 2021-06-16 00:17 | Emergency (ER) | payer MEDICAID ==
[~2021-06-16] VITALS: Ht 170.2 cm; Wt 110.7 kg
--- NOTE | 2021-06-16 01:10 | NUR ---
BIBS TO ER BED 13. AAOX4. NOT IN RESP DISTRESS, BREATHING EVEN AND UNLABORED. AMBULATORY. CAME IN FOR L SIDED CP 02/19 SHARP NON RADIATING W/ L ARM NUMBENESS. PER PT, HE RECENTLY HAD A CORONARY STENT PLACEMENT ON THURSDAY. PT HOOKED ON MONITOR. MD WAS AT THE BEDSIDE FOR EVAL. ORDERS RECEIVED, NOTED AND CARRIED OUT.
[2021-06-16 02:03] LABS: BASOPHILS # (AUTO) 0.1 K/uL (0.0-0.2); BASOPHILS % (AUTO) 0.7 % (0.0-2.0); HEMATOCRIT 40 % (39-51); HEMOGLOBIN 14.2 g/dL (13.5-17.5); LYMPHOCYTES # (AUTO) 2.3 K/uL (0.8-4.8); LYMPHOCYTES % (AUTO) 27.1 % (20.0-44.0); MEAN CORPUSCULAR HGB CONC 36 g/dl (31.0-36.0); MEAN CORPUSCULAR VOLUME 78 fL (80-96); MONOCYTES # (AUTO) 1.1 K/uL (0.1-1.30); MONOCYTES % (AUTO) 12.9 % (2.0-12.0); NEUTROPHILS # (AUTO) 4.9 K/uL (1.8-8.9); NEUTROPHILS % (AUTO) 58.3 % (43.0-81.0); PLATELET COUNT (AUTO) 222 K/uL (150-450); WHITE BLOOD COUNT (AUTO) 8.5 K/uL (4.3-11.0)
[2021-06-16 02:20] LABS: CALCIUM, SERUM 8.8 mg/dL (8.5-10.1); CARBON DIOXIDE 28 mmol/L (21-32); CHLORIDE 99 mmol/L (98-107); CREATININE 1.2 mg/dL (0.6-1.3); GLUCOSE 104 mg/dL (74-106); POTASSIUM 4.3 mmol/L (3.5-5.1); SODIUM SERUM 134 mmol/L (136-145); UREA NITROGEN, BLOOD 20 mg/dL (7-18)
[2021-06-16] MEDS ORDERED: TRAMADOL HCL 50 MG TABLET ONE (05:18)
[2021-06-16] MEDS ORDERED: TRAMADOL HCL 50 MG TABLET PO ONE (05:30)
--- NOTE | 2021-06-16 06:01 | NUR ---
Pt is medically stable for d/c. IV removed. Catheter intact and site benign. Pressure and 4x4 applied to site. No bleeding noted.Patient discharged to home in stable condition. Written and verbal after care instructions given. Patient verbalizes understanding of instruction.
[2021-06-16 06:06] VITALS: BP 151/84
== END 2021-06-16 06:07 | disposition home or self-care (01) ==
LOC: ER 00:19
DX: R07.89 Other chest pain (principal); G89.29 Other chronic pain; I10 Essential (primary) hypertension; E11.9 Type 2 diabetes mellitus without complications; F20.9 Schizophrenia, unspecified; F17.200 Nicotine dependence, unspecified, uncomplicated; Z98.890 Other specified postprocedural states; Z60.2 Problems related to living alone
CPT/HCPCS: 36415; 71045; 80048; 83880; 84484 ×2; 85025; 93005 ×3; 99285; J7030

== ENCOUNTER 2021-06-25 21:29 | Emergency (ER) | payer MEDICAID ==
[~2021-06-25] VITALS: Ht 170.2 cm; Wt 103.0 kg
--- NOTE | 2021-06-25 23:27 | NUR ---
BIBS. TO ER BED 19. AA0X4. AMBULATORY. NOT IN RESP DISTRESS. CAME IN FOR SUICIDAL IDEATION W. PLAN TO JUMP IN FRONT OF A TRAIN. DENIES HI. NO HALLUCINATION. SEEKING VOLUNTARY ADMISSION. PT GOWN. BELONGINGS IN LOCKER. WAS AT THE BEDSIDE FOR EVAL.
[2021-06-25 23:43] LABS: BILIRUBIN,URINE Negative (NEGATIVE); COLOR,URINE YELLOW (YELLOW); LEUKOCYTE ESTERASE ,URINE Negative (NEGATIVE); NITRITE, URINE Negative (NEGATIVE); PH,URINE 5.5 (5.0-8.0); PROTEIN,URINE Trace mg/dl (NEGATIVE); UGLUCOSE Negative (NEGATIVE); UROBILINOGEN,URINE 0.2 EU/dL (0.2)
[2021-06-25 23:46] LABS: BACTERIA,URINE Rare /HPF (None Seen); RBC,URINE NONE SEEN /HPF (0-2); SQUAMOUS EPITHELIAL CELL,UR Few /HPF (None Seen); WBC,URINE NONE SEEN /HPF (0-3)
[2021-06-25 23:52] LABS: BASOPHILS # (AUTO) 0.1 K/uL (0.0-0.2); BASOPHILS % (AUTO) 0.7 % (0.0-2.0); EOSINOPHILS % (AUTO) 0.4 % (0.0-6.0); HEMATOCRIT 42 % (39-51); HEMOGLOBIN 14.3 g/dL (13.5-17.5); LYMPHOCYTES # (AUTO) 2.2 K/uL (0.8-4.8); MEAN CORPUSCULAR HGB CONC 34 g/dl (31.0-36.0); MEAN CORPUSCULAR VOLUME 80 fL (80-96); MONOCYTES # (AUTO) 1.2 K/uL (0.1-1.30); MONOCYTES % (AUTO) 10.7 % (2.0-12.0); NEUTROPHILS # (AUTO) 7.4 K/uL (1.8-8.9); NEUTROPHILS % (AUTO) 68.2 % (43.0-81.0); PLATELET COUNT (AUTO) 241 K/uL (150-450); RED BLOOD CELL COUNT(AUTO) 5.25 MIL/uL (4.5-6.0); WHITE BLOOD COUNT (AUTO) 10.9 K/uL (4.3-11.0)
[2021-06-26 00:09] LABS: CALCIUM, SERUM 9.2 mg/dL (8.5-10.1); CARBON DIOXIDE 26 mmol/L (21-32); CHLORIDE 98 mmol/L (98-107); CREATININE 1.5 mg/dL (0.6-1.3); GLUCOSE 103 mg/dL (74-106); POTASSIUM 4.6 mmol/L (3.5-5.1); SODIUM SERUM 134 mmol/L (136-145); UREA NITROGEN, BLOOD 32 mg/dL (7-18)
[2021-06-26 00:25] LABS: ALANINE AMINOTRANSFERASE 49 U/L (12-78); ALBUMIN 4.3 g/dL (3.4-5.0); ALKALINE PHOSPHATASE 119 U/L (46-116); ASPARTATE AMINOTRANSFERASE 85 U/L (15-37); BILIRUBIN,DIRECT 0.3 mg/dL (0.0-0.2); BILIRUBIN,TOTAL 1.3 mg/dL (0.2-1.0); TOTAL PROTEIN, SERUM 8.7 g/dL (6.4-8.2)
[2021-06-26 00:28] LABS: ACETAMINOPHEN < 2 ug/ml (10-30); ALCOHOL, BLOOD < 3 mg/dL (0-0)
--- NOTE | 2021-06-26 04:20 | NUR ---
CALLED LAB TO F/U ON TROP AND MAGNESIUM
--- NOTE | 2021-06-26 06:04 | NUR ---
FAXED XLINICALS AND FACE SHEET TO [facility]
--- NOTE | 2021-06-26 09:05 | NUR ---
PT ACCEPTED TO [facility] UNDER DR. EDWARDS CALL [phone] FOR REPORT PLEASE SEND PT AFTER [phone]
--- NOTE | 2021-06-26 09:10 | NUR ---
[facility] CALLED ASKED FOR PICKUP TIME [phone] OK PER QUIRINO.
[2021-06-26 12:26] VITALS: BP 116/75
--- NOTE | 2021-06-26 13:53 | NUR ---
PATIENT PICKED UP BY [facility] IN STABLE CONDITION TO BE TRANSFERRED TO [facility]. ALL BELONGINGS GIVEN TO PATIENT.
== END 2021-06-26 14:25 ==
LOC: ER 21:31
DX: R45.851 Suicidal ideations (principal); R94.31 Abnormal electrocardiogram [ECG] [EKG]; F20.0 Paranoid schizophrenia; F19.10 Other psychoactive substance abuse, uncomplicated; Z20.822 Contact with and (suspected) exposure to COVID-19; Z82.49 Family history of ischemic heart disease and other diseases of the circulatory system; F15.10 Other stimulant abuse, uncomplicated; F14.10 Cocaine abuse, uncomplicated; G89.29 Other chronic pain; M54.9 Dorsalgia, unspecified; I10 Essential (primary) hypertension; F17.200 Nicotine dependence, unspecified, uncomplicated
CPT/HCPCS: 36415; 71045; 80048; 80076; 80143; 80307; 80320; 81001; 83735; 84484; 85025; 87426; 93005; 99285; C9803; G0480

== ENCOUNTER 2021-07-16 02:51 | Emergency (ER) | payer MEDICAID ==
[~2021-07-16] VITALS: Ht 170.2 cm; Wt 108.4 kg
--- NOTE | 2021-07-16 03:29 | NUR ---
BIBS FOR C/O L SIDED CP, RUQ ABD PAIN AND LOWER BACK PAIN
[2021-07-16] MEDS ORDERED: ASPIRIN 81 MG TAB.CHEW ONE (03:45)
[2021-07-16] MEDS ORDERED: HYDROMORPHONE HCL 2 MG TABLET ONE (03:45)
[2021-07-16] MEDS ORDERED: NITROGLYCERIN PACKET 1 GM PACKET ONE (03:45)
--- NOTE | 2021-07-16 03:53 | NUR ---
MRSA SWAB COLLECTED AND SENT TO LAB. PATIENT'S BELONGINGS LIST DONE.
[2021-07-16] MEDS ORDERED: HYDROMORPHONE HCL 2 MG TABLET PO PRN (04:00)
[2021-07-16] MEDS ORDERED: NITROGLYCERIN PACKET 1 GM PACKET TD ONE (04:00)
[2021-07-16] MEDS ORDERED: ASPIRIN 81 MG TAB.CHEW PO ONE (04:00)
--- NOTE | 2021-07-16 04:10 | NUR ---
URINE SPECIMEN COLLECTED AND SENT TO LAB.
[2021-07-16 04:12] LABS: BASOPHILS % (AUTO) 0.6 % (0.0-2.0); EOSINOPHILS % (AUTO) 2.4 % (0.0-6.0); HEMATOCRIT 37 % (39-51); HEMOGLOBIN 12.7 g/dL (13.5-17.5); LYMPHOCYTES # (AUTO) 1.7 K/uL (0.8-4.8); LYMPHOCYTES % (AUTO) 20.9 % (20.0-44.0); MEAN CORPUSCULAR HGB CONC 35 g/dl (31.0-36.0); MEAN CORPUSCULAR VOLUME 80 fL (80-96); MONOCYTES % (AUTO) 11.7 % (2.0-12.0); NEUTROPHILS # (AUTO) 5.2 K/uL (1.8-8.9); NEUTROPHILS % (AUTO) 64.4 % (43.0-81.0); PLATELET COUNT (AUTO) 188 K/uL (150-450); RED BLOOD CELL COUNT(AUTO) 4.55 MIL/uL (4.5-6.0); WHITE BLOOD COUNT (AUTO) 8.1 K/uL (4.3-11.0)
[2021-07-16 04:28] LABS: D-DIMER 0.69 mg/L(FEU (0.17-0.50)
[2021-07-16 04:38] LABS: CARBON DIOXIDE 26 mmol/L (21-32); CHLORIDE 101 mmol/L (98-107); CREATININE 1.2 mg/dL (0.6-1.3); GLUCOSE 95 mg/dL (74-106); POTASSIUM 4.5 mmol/L (3.5-5.1); SODIUM SERUM 137 mmol/L (136-145); UREA NITROGEN, BLOOD 19 mg/dL (7-18)
[2021-07-16 04:50] LABS: ALANINE AMINOTRANSFERASE 36 U/L (12-78); ALKALINE PHOSPHATASE 108 U/L (46-116); ASPARTATE AMINOTRANSFERASE 33 U/L (15-37); BILIRUBIN,DIRECT 0.1 mg/dL (0.0-0.2); BILIRUBIN,TOTAL 0.4 mg/dL (0.2-1.0); TOTAL PROTEIN, SERUM 8.3 g/dL (6.4-8.2)
[2021-07-16] MEDS ORDERED: HYDR-3980 PO (05:34)
--- NOTE | 2021-07-16 09:39 | NUR ---
IV removed. Catheter intact and site benign. Pressure and 4x4 applied to site. No bleeding noted.Patient discharged to home in stable condition. Written and verbal after care instructions given. Patient verbalizes understanding of instruction.
[2021-07-16 09:40] VITALS: BP 153/84
== END 2021-07-16 09:41 | disposition home or self-care (01) ==
LOC: ER 02:53
DX: R07.9 Chest pain, unspecified (principal); G89.29 Other chronic pain; M54.50 Low back pain, unspecified; F20.0 Paranoid schizophrenia; K80.20 Calculus of gallbladder without cholecystitis without obstruction; F17.210 Nicotine dependence, cigarettes, uncomplicated; Z20.822 Contact with and (suspected) exposure to COVID-19; F19.10 Other psychoactive substance abuse, uncomplicated; Z87.442 Personal history of urinary calculi; R79.1 Abnormal coagulation profile; I10 Essential (primary) hypertension; E11.9 Type 2 diabetes mellitus without complications; E78.00 Pure hypercholesterolemia, unspecified
CPT/HCPCS: 36415; 71045; 76705; 80048; 80076; 83880; 84484 ×2; 85025; 85378; 85730; 87081; 87426; 93005; 99285; 99406; C9803

== ENCOUNTER 2022-01-05 10:56 | Emergency (ER) | payer MEDICAID ==
[~2022-01-05] VITALS: Ht 170.2 cm; Wt 96.2 kg
--- NOTE | 2022-01-05 11:09 | NUR ---
BIBS C/O CHRONIC LOW BACK PAIN RADIATING TO JACINTO LEGS. PT STS DC'D LAST WED FROM [facility] FOR SAME PROBLEM, NORCO NOT WORKING PER PT
[2022-01-05] MEDS ORDERED: CARI350T PO (12:00)
[2022-01-05] MEDS ORDERED: PRED20TA PO (12:00)
[2022-01-05] MEDS ORDERED: IBUP-1957 PO (12:00)
[2022-01-05] MEDS ORDERED: HYDR-4303 PO (12:00)
[2022-01-05] MEDS ORDERED: HYDROCODONE/APAP 10/325MG TABLET PO ONE (12:00)
[2022-01-05] MEDS ORDERED: HYDROCODONE/APAP 10/325MG TABLET ONE (12:05)
--- NOTE | 2022-01-05 12:15 | NUR ---
Patient discharged to home in stable condition. Written and verbal after care instructions given. Patient verbalizes understanding of instruction.
[2022-01-05 12:16] VITALS: BP 155/88
== END 2022-01-05 12:16 | disposition home or self-care (01) ==
LOC: ER 11:04
DX: M54.42 Lumbago with sciatica, left side (principal); M54.41 Lumbago with sciatica, right side; G89.29 Other chronic pain; I11.0 Hypertensive heart disease with heart failure; I50.9 Heart failure, unspecified; E11.9 Type 2 diabetes mellitus without complications; F20.0 Paranoid schizophrenia; F17.200 Nicotine dependence, unspecified, uncomplicated; Z79.899 Other long term (current) drug therapy; Z98.890 Other specified postprocedural states

== ENCOUNTER 2022-03-26 17:20 | Emergency (ER) | payer MEDICAID, OTHER ==
[~2022-03-26] VITALS: Ht 170.2 cm; Wt 95.3 kg
[~2022-03-26 17:20] MED LIST changes: +CARI350T PO; +HYDR-4303 PO; +IBUP-1957 PO; +PRED20TA PO
--- NOTE | 2022-03-26 18:00 | NUR ---
URINE SPECIMEN, COVID SWAB DONE. LAB CALLED FOR MAC DEVELOPER.
--- NOTE | 2022-03-26 18:01 | NUR ---
PT SELF PRESENTS TO ED, AMBULATORY W/ STEADY GAIT. SUICIDAL IDEATION FOR DAYS. DENIES HI. PT IS REQUESTING VOLUNTARY PSYCHIATRIC ADMISSION TO [facility]. PT HAD MULTIPLE ED VISITS FOR SAME COMPLAINTS. ROOMED. SECURITY CALLED FOR WANDING. AWAITING MD HERNADEZ.
--- NOTE | 2022-03-26 18:15 | NUR ---
DR MURPHY AT BEDSIDE FOR EVAL.
[2022-03-26 18:31] LABS: BILIRUBIN,URINE MODERATE (NEGATIVE); COLOR,URINE YELLOW (YELLOW); LEUKOCYTE ESTERASE ,URINE NEGATIVE (NEGATIVE); NITRITE, URINE NEGATIVE (NEGATIVE); PROTEIN,URINE 100 mg/dl (NEGATIVE); UGLUCOSE NEGATIVE (NEGATIVE)
[2022-03-26 19:40] LABS: BASOPHILS % (AUTO) 0.2 % (0.0-2.0); EOSINOPHILS % (AUTO) 0.2 % (0.0-6.0); HEMATOCRIT 44 % (39-51); HEMOGLOBIN 14.6 g/dL (13.5-17.5); LYMPHOCYTES # (AUTO) 2.1 K/uL (0.8-4.8); LYMPHOCYTES % (AUTO) 16.7 % (20.0-44.0); MEAN CORPUSCULAR HGB CONC 34 g/dl (31.0-36.0); MEAN CORPUSCULAR VOLUME 83 fL (80-96); MONOCYTES # (AUTO) 1.2 K/uL (0.1-1.30); MONOCYTES % (AUTO) 9.2 % (2.0-12.0); NEUTROPHILS # (AUTO) 9.4 K/uL (1.8-8.9); NEUTROPHILS % (AUTO) 73.7 % (43.0-81.0); PLATELET COUNT (AUTO) 193 K/uL (150-450); RED BLOOD CELL COUNT(AUTO) 5.26 MIL/uL (4.5-6.0); WHITE BLOOD COUNT (AUTO) 12.8 K/uL (4.3-11.0)
[2022-03-26 20:01] LABS: ALBUMIN 4.2 g/dL (3.4-5.0); CALCIUM, SERUM 9.3 mg/dL (8.5-10.1); CARBON DIOXIDE 22 mmol/L (21-32); CHLORIDE 101 mmol/L (98-107); CREATININE 1.2 mg/dL (0.6-1.3); GLUCOSE 116 mg/dL (74-106); SODIUM SERUM 140 mmol/L (136-145); UREA NITROGEN, BLOOD 17 mg/dL (7-18)
[2022-03-26 20:14] LABS: ALANINE AMINOTRANSFERASE 42 U/L (12-78); ALCOHOL, BLOOD < 3 mg/dL (0-0); ALKALINE PHOSPHATASE 137 U/L (46-116); ASPARTATE AMINOTRANSFERASE 45 U/L (15-37); BILIRUBIN,DIRECT 0.9 mg/dL (0.0-0.2); BILIRUBIN,TOTAL 2.4 mg/dL (0.2-1.0); TOTAL PROTEIN, SERUM 7.9 g/dL (6.4-8.2)
--- NOTE | 2022-03-26 20:47 | NUR ---
FACESHEET AND CLINICALS FAXED TO [facility].
[2022-03-26] MEDS ORDERED: POTASSIUM CHLORIDE 20 MEQ TAB.PRT.SR PO ONE ×2 (21:00→21:28)
--- NOTE | 2022-03-27 04:00 | NUR ---
PATIENT BEEN ASKING ABOUT FOOD AND WANTS TO TALK TO NURSE AND DEMANDS TO SPEAK TO MD. DR ESCALANTE IS WITH ANOTHER PATIENT. REDIRECTING PATIENT BACK TO ROOM
--- NOTE | 2022-03-27 06:29 | NUR ---
PER NOVEMBER AT [facility] INTAKE PATIENT GOT ACCEPTED AT [facility]. AWAING FOR DISCHARGES AND AVAILABLE BED
--- NOTE | 2022-03-27 09:12 | NUR ---
ACCEPTED TO [facility] UNDER DR KAHN NUMBER FOR REPORT [phone] [phone]
--- NOTE | 2022-03-27 16:52 | NUR ---
REPORT GIVEN TO CHARGE NURSE MELVI. ARRANGED TRANSPORT AT 1900.
--- NOTE | 2022-03-27 18:14 | NUR ---
CALLED [facility]ARTIN MARY TO ART, WILL CHECK BELLFLOWER AND CALL BACK
--- NOTE | 2022-03-27 20:12 | NUR ---
[facility] AT BEDSIDE FOR TRANSPORT.
[2022-03-27 20:30] VITALS: BP 119/70
== END 2022-03-27 20:30 ==
LOC: ER 17:21
DX: R45.851 Suicidal ideations (principal); F15.10 Other stimulant abuse, uncomplicated; Z59.00 Homelessness unspecified; E87.6 Hypokalemia; Z20.822 Contact with and (suspected) exposure to COVID-19; G89.29 Other chronic pain; M54.50 Low back pain, unspecified; F20.9 Schizophrenia, unspecified; E11.9 Type 2 diabetes mellitus without complications; I10 Essential (primary) hypertension; Z87.442 Personal history of urinary calculi; Z87.19 Personal history of other diseases of the digestive system; Z79.899 Other long term (current) drug therapy
CPT/HCPCS: 99285; 85025; 80048; 80076; 81003; 36415; 87426; 80143; 80320; 80307; C9803; G0480

== ENCOUNTER 2022-04-05 20:54 | Emergency (ER) | payer OTHER ==
[~2022-04-05] VITALS: Ht 167.6 cm; Wt 95.3 kg
--- NOTE | 2022-04-05 21:04 | NUR ---
BIBS FOR S/I AND H/I WITH NO PLAN OF NOW. SEEKING VOLUNTARY ADMISSION TO PSYCH FACILITY. PATIENT BELONGINGS TAKEN AND PLACED IN LOCKER. SECURITY CALLED FOR WANDING. PATIENT IN BED 18 WITH NO OTHER COMPLAINTS.
--- NOTE | 2022-04-05 21:12 | NUR ---
COVID SWAB DONE AND SENT TO LAB
--- NOTE | 2022-04-05 21:12 | NUR ---
URINE COLLECTED AND SENT TO LAB
[2022-04-05 21:33] LABS: BASOPHILS % (AUTO) 0.3 % (0.0-2.0); EOSINOPHILS % (AUTO) 0.2 % (0.0-6.0); HEMATOCRIT 39 % (39-51); LYMPHOCYTES # (AUTO) 1.4 K/uL (0.8-4.8); LYMPHOCYTES % (AUTO) 13.6 % (20.0-44.0); MEAN CORPUSCULAR HGB CONC 34 g/dl (31.0-36.0); MEAN CORPUSCULAR VOLUME 81 fL (80-96); MONOCYTES # (AUTO) 1.3 K/uL (0.1-1.30); NEUTROPHILS # (AUTO) 7.7 K/uL (1.8-8.9); NEUTROPHILS % (AUTO) 73.9 % (43.0-81.0); PLATELET COUNT (AUTO) 216 K/uL (150-450); RED BLOOD CELL COUNT(AUTO) 4.81 MIL/uL (4.5-6.0); WHITE BLOOD COUNT (AUTO) 10.5 K/uL (4.3-11.0)
[2022-04-05 21:34] LABS: BILIRUBIN,URINE NEGATIVE (NEGATIVE); COLOR,URINE YELLOW (YELLOW); LEUKOCYTE ESTERASE ,URINE NEGATIVE (NEGATIVE); NITRITE, URINE NEGATIVE (NEGATIVE); PROTEIN,URINE 30 mg/dl (NEGATIVE); UGLUCOSE NEGATIVE (NEGATIVE); UROBILINOGEN,URINE 0.2 EU/dL (0.2)
[2022-04-05 21:45] LABS: CALCIUM, SERUM 9.6 mg/dL (8.5-10.1); CARBON DIOXIDE 28 mmol/L (21-32); CHLORIDE 100 mmol/L (98-107); CREATININE 1.2 mg/dL (0.6-1.3); GLUCOSE 114 mg/dL (74-106); POTASSIUM 4.1 mmol/L (3.5-5.1); SODIUM SERUM 138 mmol/L (136-145); UREA NITROGEN, BLOOD 25 mg/dL (7-18)
[2022-04-05 21:45] LABS: BACTERIA,URINE Few /HPF (None Seen); RBC,URINE 0-2 /HPF (0-2); SQUAMOUS EPITHELIAL CELL,UR Few /HPF (None Seen); WBC,URINE 0-2 /HPF (0-3)
[2022-04-05 21:46] LABS: SPERM,URINE Many /HPF (None Seen)
[2022-04-05 21:50] LABS: ALANINE AMINOTRANSFERASE 91 U/L (12-78); ALBUMIN 4.1 g/dL (3.4-5.0); ALKALINE PHOSPHATASE 131 U/L (46-116); ASPARTATE AMINOTRANSFERASE 97 U/L (15-37); BILIRUBIN,DIRECT 0.5 mg/dL (0.0-0.2); BILIRUBIN,TOTAL 1.6 mg/dL (0.2-1.0)
[2022-04-05 21:53] LABS: ACETAMINOPHEN 0 ug/ml (10-30); ALCOHOL, BLOOD < 3 mg/dL (0-0)
--- NOTE | 2022-04-06 03:34 | NUR ---
CLINICALS FAXED TO INTAKE
--- NOTE | 2022-04-06 08:44 | NUR ---
CLINICALS RE-FAXED TO [facility] PER REQUEST
--- NOTE | 2022-04-06 09:04 | NUR ---
SPOKE TO RODRI AT [facility],HE'S WORKING ON TX PATIENT TO [facility]
[2022-04-06 10:00] VITALS: BP 143/89
--- NOTE | 2022-04-06 10:24 | NUR ---
CALLED [facility] AWAITING FEEDBACK PER QAMAR.
[2022-04-06] MEDS ORDERED: HYDROCODONE/APAP 10/325MG TABLET PO ONE (10:30)
[2022-04-06] MEDS ORDERED: HYDROCODONE/APAP 10/325MG TABLET ONE (10:34)
== END 2022-04-06 10:42 | disposition home or self-care (01) ==
LOC: ER 21:01
DX: R45.851 Suicidal ideations (principal); R45.850 Homicidal ideations; F19.10 Other psychoactive substance abuse, uncomplicated; Z20.822 Contact with and (suspected) exposure to COVID-19; K74.60 Unspecified cirrhosis of liver; D64.9 Anemia, unspecified; G89.29 Other chronic pain; M54.9 Dorsalgia, unspecified; I10 Essential (primary) hypertension; Z87.442 Personal history of urinary calculi; E11.9 Type 2 diabetes mellitus without complications; Z86.59 Personal history of other mental and behavioral disorders
CPT/HCPCS: 99285; 85025; 80048; 80076; 81001; 36415; 87426; 80143; 80320; 80307; C9803; G0480

== ENCOUNTER 2022-05-04 00:01 | Emergency (ER) | payer OTHER ==
[~2022-05-04] VITALS: Ht 167.6 cm; Wt 96.2 kg
[2022-05-04] MEDS ORDERED: KETOROLAC TROMETHAMINE INJ 60 MG/2 ML VIAL IM ONE ×2 (00:56→01:00)
[2022-05-04 00:57] VITALS: BP 124/82
== END 2022-05-04 01:01 | disposition home or self-care (01) ==
LOC: ER 00:07
DX: G89.29 Other chronic pain (principal); M54.42 Lumbago with sciatica, left side; M54.41 Lumbago with sciatica, right side; I11.0 Hypertensive heart disease with heart failure; I50.9 Heart failure, unspecified; F20.9 Schizophrenia, unspecified; F17.200 Nicotine dependence, unspecified, uncomplicated; Z87.442 Personal history of urinary calculi; Z79.899 Other long term (current) drug therapy
CPT/HCPCS: 99283; 96372; J1885

== ENCOUNTER 2022-05-04 12:51 | Emergency (ER) | payer OTHER ==
[~2022-05-04] VITALS: Ht 170.2 cm; Wt 96.2 kg
[2022-05-04 13:27] VITALS: BP 152/100
== END 2022-05-04 14:53 | disposition home or self-care (01) ==
LOC: ER 12:51
DX: G89.29 Other chronic pain (principal); M54.50 Low back pain, unspecified; I11.0 Hypertensive heart disease with heart failure; I50.9 Heart failure, unspecified; E11.9 Type 2 diabetes mellitus without complications; F20.9 Schizophrenia, unspecified; F17.200 Nicotine dependence, unspecified, uncomplicated; Z87.442 Personal history of urinary calculi; Z79.899 Other long term (current) drug therapy

== ENCOUNTER 2022-06-17 18:39 | Emergency (ER) | payer OTHER ==
[~2022-06-17] VITALS: Ht 170.2 cm; Wt 92.5 kg
--- NOTE | 2022-06-17 20:32 | NUR ---
COVID SWAB DONE AND SENT TO LAB
--- NOTE | 2022-06-17 20:32 | NUR ---
URINE COLLECTED AND SENT TO LAB
--- NOTE | 2022-06-17 20:32 | NUR ---
PATIENT BELONGINGS TAKEN AND PLACED IN LOCKER. PATIENT IN GOWN AND IN BED 18. SECURITY CALLED FOR WANDING.
[2022-06-17 21:15] LABS: RED BLOOD CELL COUNT(AUTO) 4.85 MIL/uL (4.5-6.0); WHITE BLOOD COUNT (AUTO) 10.2 K/uL (4.3-11.0)
[2022-06-17 21:16] LABS: BASOPHILS % (AUTO) 0.2 % (0.0-2.0); EOSINOPHILS % (AUTO) 2.2 % (0.0-6.0); HEMATOCRIT 40 % (39-51); HEMOGLOBIN 13.3 g/dL (13.5-17.5); LYMPHOCYTES # (AUTO) 1.3 K/uL (0.8-4.8); LYMPHOCYTES % (AUTO) 13.2 % (20.0-44.0); MEAN CORPUSCULAR HGB CONC 33 g/dl (31.0-36.0); MEAN CORPUSCULAR VOLUME 83 fL (80-96); MONOCYTES # (AUTO) 1.4 K/uL (0.1-1.30); MONOCYTES % (AUTO) 13.3 % (2.0-12.0); NEUTROPHILS # (AUTO) 7.2 K/uL (1.8-8.9); NEUTROPHILS % (AUTO) 71.1 % (43.0-81.0); PLATELET COUNT (AUTO) 167 K/uL (150-450)
[2022-06-17 21:17] LABS: BILIRUBIN,URINE NEGATIVE (NEGATIVE); COLOR,URINE YELLOW (YELLOW); LEUKOCYTE ESTERASE ,URINE NEGATIVE (NEGATIVE); NITRITE, URINE NEGATIVE (NEGATIVE); PROTEIN,URINE NEGATIVE (NEGATIVE); UGLUCOSE NEGATIVE (NEGATIVE); UROBILINOGEN,URINE 0.2 EU/dL (0.2)
[2022-06-17 21:35] LABS: ALANINE AMINOTRANSFERASE 154 U/L (12-78); ALCOHOL, BLOOD < 3 mg/dL (0-0); ALKALINE PHOSPHATASE 136 U/L (46-116); ASPARTATE AMINOTRANSFERASE 94 U/L (15-37); BILIRUBIN,DIRECT 0.2 mg/dL (0.0-0.2); BILIRUBIN,TOTAL 0.6 mg/dL (0.2-1.0); CALCIUM, SERUM 9.8 mg/dL (8.5-10.1); CARBON DIOXIDE 31 mmol/L (21-32); CHLORIDE 100 mmol/L (98-107); CREATININE 1.1 mg/dL (0.6-1.3); GLUCOSE 115 mg/dL (74-106); POTASSIUM 4.2 mmol/L (3.5-5.1); SODIUM SERUM 138 mmol/L (136-145); TOTAL PROTEIN, SERUM 8.3 g/dL (6.4-8.2); UREA NITROGEN, BLOOD 25 mg/dL (7-18)
[2022-06-17 21:48] LABS: ACETAMINOPHEN 0 ug/ml (10-30)
--- NOTE | 2022-06-17 23:22 | NUR ---
FACESHEET AND CLINICALS FAXED TO [facility].
--- NOTE | 2022-06-18 01:04 | NUR ---
PT IS ACCEPTED AT [facility] [place] UNDER CARE OF DR FIELD # FOR REPORT: [phone]
--- NOTE | 2022-06-18 01:11 | NUR ---
[facility] ETA 2 HOURS
--- NOTE | 2022-06-18 03:19 | NUR ---
REPORT GIVEN TO CHRISTINE BROWNING OF [facility] UNIT 235
--- NOTE | 2022-06-18 03:24 | NUR ---
TRANSFERRED TO [facility] VIA AMBULANCE
[2022-06-18 03:29] VITALS: BP 149/98
== END 2022-06-18 03:32 ==
LOC: ER 18:39
DX: R45.851 Suicidal ideations (principal); Z20.822 Contact with and (suspected) exposure to COVID-19; G89.29 Other chronic pain; M54.9 Dorsalgia, unspecified; I10 Essential (primary) hypertension; Z87.442 Personal history of urinary calculi; E11.9 Type 2 diabetes mellitus without complications; K74.69 Other cirrhosis of liver; Z86.59 Personal history of other mental and behavioral disorders
CPT/HCPCS: 99285; 85025; 80048; 80076; 81003; 36415; 87426; 80143; 80320; 80307; C9803; G0480

== ENCOUNTER 2022-06-19 23:55 | Emergency (ER) | payer OTHER ==
[~2022-06-19] VITALS: Ht 170.2 cm; Wt 101.2 kg
[2022-06-20 01:40] VITALS: BP 174/108
[2022-06-20] MEDS ORDERED: ASPI-1420 MT ×2 (01:46→01:47)
[2022-06-20] MEDS ORDERED: ATEN25TA MT ×2 (01:46→01:47)
[2022-06-20] MEDS ORDERED: LISI20TA30 MT ×2 (01:46→01:47)
[2022-06-20] MEDS ORDERED: ATEN25TA PO (01:51)
[2022-06-20] MEDS ORDERED: LISI20TA30 PO (01:51)
[2022-06-20] MEDS ORDERED: ASPI-1169 PO (01:51)
== END 2022-06-20 02:06 | disposition home or self-care (01) ==
LOC: ER 23:57
DX: G89.29 Other chronic pain (principal); M54.42 Lumbago with sciatica, left side; M54.41 Lumbago with sciatica, right side; Z76.0 Encounter for issue of repeat prescription; I11.0 Hypertensive heart disease with heart failure; I50.9 Heart failure, unspecified; F20.9 Schizophrenia, unspecified; F17.200 Nicotine dependence, unspecified, uncomplicated; Z87.442 Personal history of urinary calculi; Z91.012 Allergy to eggs; Z79.899 Other long term (current) drug therapy

== ENCOUNTER 2022-07-01 16:58 | Emergency (ER) | payer OTHER ==
[~2022-07-01] VITALS: Ht 170.2 cm; Wt 101.2 kg
[~2022-07-01 16:58] MED LIST changes: +ASPI-1169 PO; +ASPI-1420 MT; +ATEN25TA MT; +ATEN25TA PO; +LISI20TA30 MT; +LISI20TA30 PO
[2022-07-01 19:09] LABS: ALANINE AMINOTRANSFERASE 112 U/L (12-78); ALBUMIN 3.7 g/dL (3.4-5.0); ALCOHOL, BLOOD < 3 mg/dL (0-0); ALKALINE PHOSPHATASE 194 U/L (46-116); ASPARTATE AMINOTRANSFERASE 66 U/L (15-37); BILIRUBIN,DIRECT 0.2 mg/dL (0.0-0.2); BILIRUBIN,TOTAL 0.4 mg/dL (0.2-1.0); CALCIUM, SERUM 8.9 mg/dL (8.5-10.1); CARBON DIOXIDE 25 mmol/L (21-32); CHLORIDE 95 mmol/L (98-107); CREATININE 1.3 mg/dL (0.6-1.3); SODIUM SERUM 130 mmol/L (136-145); TOTAL PROTEIN, SERUM 7.7 g/dL (6.4-8.2); UREA NITROGEN, BLOOD 27 mg/dL (7-18)
[2022-07-01 19:15] LABS: ACETAMINOPHEN 0 ug/ml (10-30)
[2022-07-01 19:17] LABS: GLUCOSE 410 mg/dL (74-106)
[2022-07-01 19:18] LABS: BILIRUBIN,URINE NEGATIVE (NEGATIVE); COLOR,URINE YELLOW (YELLOW); LEUKOCYTE ESTERASE ,URINE NEGATIVE (NEGATIVE); NITRITE, URINE NEGATIVE (NEGATIVE); PH,URINE 6.5 (5.0-8.0); PROTEIN,URINE NEGATIVE (NEGATIVE); UGLUCOSE 3+ mg/dL (NEGATIVE); UROBILINOGEN,URINE 0.2 EU/dL (0.2)
[2022-07-01 19:21] LABS: CLINITEST,URINE 3/4%
[2022-07-01] MEDS ORDERED: INSULIN REGULAR, HUMAN 100 UNIT/ML 10 ML VIAL SQ ONE ×2 (19:30→21:30)
--- NOTE | 2022-07-01 19:36 | NUR ---
GLU 415
[2022-07-01 19:53] VITALS: BP 151/90
[2022-07-01 20:37] LABS: BASOPHILS % (AUTO) 0.5 % (0.0-2.0); EOSINOPHILS % (AUTO) 1.7 % (0.0-6.0); HEMATOCRIT 36 % (39-51); HEMOGLOBIN 12.2 g/dL (13.5-17.5); LYMPHOCYTES # (AUTO) 1.3 K/uL (0.8-4.8); LYMPHOCYTES % (AUTO) 17.3 % (20.0-44.0); MEAN CORPUSCULAR HGB CONC 34 g/dl (31.0-36.0); MEAN CORPUSCULAR VOLUME 82 fL (80-96); MONOCYTES % (AUTO) 12.9 % (2.0-12.0); NEUTROPHILS # (AUTO) 5.2 K/uL (1.8-8.9); NEUTROPHILS % (AUTO) 67.6 % (43.0-81.0); PLATELET COUNT (AUTO) 178 K/uL (150-450); RED BLOOD CELL COUNT(AUTO) 4.44 MIL/uL (4.5-6.0); WHITE BLOOD COUNT (AUTO) 7.8 K/uL (4.3-11.0)
[2022-07-01] MEDS ORDERED: METFORMIN 500 MG TABLET ONE (21:26)
[2022-07-01] MEDS ORDERED: METFORMIN 500 MG TABLET PO ONE (21:30)
--- NOTE | 2022-07-02 00:20 | NUR ---
FACESHEET AND CLINICALS FAXED TO [facility].
--- NOTE | 2022-07-02 01:57 | NUR ---
PT IS ACCEPTED TO [facility] UNDER DR EDWARDS REPORT NUMBER IS [phone]
--- NOTE | 2022-07-02 02:00 | NUR ---
CALLED [facility] FOR TRANSPORTATION ETA IS 20 MIN
--- NOTE | 2022-07-02 02:03 | NUR ---
REPORT GIVEN TO DAMIAN AT [facility]
--- NOTE | 2022-07-02 02:05 | NUR ---
report given to ems at bedside
== END 2022-07-02 03:08 ==
LOC: ER 17:00
DX: R45.851 Suicidal ideations (principal); E86.0 Dehydration; E11.65 Type 2 diabetes mellitus with hyperglycemia; I10 Essential (primary) hypertension; Z20.822 Contact with and (suspected) exposure to COVID-19; Z79.82 Long term (current) use of aspirin; Z79.899 Other long term (current) drug therapy; Z91.012 Allergy to eggs; Z87.442 Personal history of urinary calculi; F20.0 Paranoid schizophrenia
CPT/HCPCS: 99285; 96372 ×2; 85025; 80048; 80076; 81003; 36415; 82962 ×3; 87426; 80143; 80320; 80307; J1815; C9803; G0480

== ENCOUNTER 2022-07-15 09:53 | Emergency (ER) | payer OTHER ==
[~2022-07-15] VITALS: Ht 165.1 cm; Wt 95.3 kg
--- NOTE | 2022-07-15 10:10 | NUR ---
MULTIPLE VISITS FOR THE SAME COMPLAINT, REQUESTING VOLUNTARY PSYCH ADMISSION TO [facility]. SI PLAN "OD ON DRUGS". PT AMBULATED TO THE ROOM WITH STEADY GAIT, VS WNL, A/OX4. PERSONAL BELONGINGS OBTAINED AND PUT ON LOCKER. WANDING REQUESTED FROM SECURITY. AWAITING MD ORDERS.
--- NOTE | 2022-07-15 10:15 | NUR ---
SECURITY AT BEDSIDE FOR WANDING. SAFETY MEASURES IN PLACE.
--- NOTE | 2022-07-15 10:17 | NUR ---
URINE SAMPLE COLLECTED AND SENT TO LAB
--- NOTE | 2022-07-15 10:20 | NUR ---
COVID SWAB COLLECTED AND SENT TO LAB
[2022-07-15 10:57] LABS: BASOPHILS % (AUTO) 0.1 % (0.0-2.0); EOSINOPHILS % (AUTO) 1.3 % (0.0-6.0); HEMATOCRIT 41 % (39-51); HEMOGLOBIN 13.8 g/dL (13.5-17.5); LYMPHOCYTES # (AUTO) 1.4 K/uL (0.8-4.8); LYMPHOCYTES % (AUTO) 17.6 % (20.0-44.0); MEAN CORPUSCULAR HGB CONC 34 g/dl (31.0-36.0); MEAN CORPUSCULAR VOLUME 80 fL (80-96); MONOCYTES # (AUTO) 0.6 K/uL (0.1-1.30); MONOCYTES % (AUTO) 7.6 % (2.0-12.0); NEUTROPHILS # (AUTO) 5.9 K/uL (1.8-8.9); NEUTROPHILS % (AUTO) 73.4 % (43.0-81.0); PLATELET COUNT (AUTO) 165 K/uL (150-450); RED BLOOD CELL COUNT(AUTO) 5.08 MIL/uL (4.5-6.0); WHITE BLOOD COUNT (AUTO) 8.1 K/uL (4.3-11.0)
[2022-07-15 11:13] LABS: BILIRUBIN,URINE NEGATIVE (NEGATIVE); COLOR,URINE YELLOW (YELLOW); LEUKOCYTE ESTERASE ,URINE NEGATIVE (NEGATIVE); NITRITE, URINE NEGATIVE (NEGATIVE); PROTEIN,URINE NEGATIVE (NEGATIVE); UGLUCOSE NEGATIVE (NEGATIVE); UROBILINOGEN,URINE 0.2 EU/dL (0.2)
[2022-07-15 12:25] LABS: ALANINE AMINOTRANSFERASE 51 U/L (12-78); ALBUMIN 4.1 g/dL (3.4-5.0); ALCOHOL, BLOOD < 3 mg/dL (0-0); ALKALINE PHOSPHATASE 117 U/L (46-116); ASPARTATE AMINOTRANSFERASE 39 U/L (15-37); BILIRUBIN,DIRECT 0.2 mg/dL (0.0-0.2); BILIRUBIN,TOTAL 0.8 mg/dL (0.2-1.0); CALCIUM, SERUM 8.9 mg/dL (8.5-10.1); CARBON DIOXIDE 25 mmol/L (21-32); CHLORIDE 102 mmol/L (98-107); CREATININE 1.1 mg/dL (0.6-1.3); GLUCOSE 98 mg/dL (74-106); POTASSIUM 4.1 mmol/L (3.5-5.1); SODIUM SERUM 135 mmol/L (136-145); UREA NITROGEN, BLOOD 17 mg/dL (7-18)
[2022-07-15 12:35] LABS: ACETAMINOPHEN 0 ug/ml (10-30)
--- NOTE | 2022-07-15 12:57 | NUR ---
FAXED PAPERWORK TO [facility],
--- NOTE | 2022-07-15 13:27 | NUR ---
CALLED RODRI MCKEON CONFIRMED FAX WAS RECEIVED, WAITING ON RESPONSE FROM [facility]. HOUSE [facility] WILL CALL US.
--- NOTE | 2022-07-15 13:37 | NUR ---
PER RODRI FROM [facility]TA[facility], PT ACCEPTED AT [facility] UNDER DR. LUU. NUMBER FOR REPORT [phone]. WILL CALL BACK FOR TRANSPORTATION SETUP/ETA.
--- NOTE | 2022-07-15 13:52 | NUR ---
ETA 45MINS
--- NOTE | 2022-07-15 13:54 | NUR ---
ATTEMPTED TO GIVE REPORT AT NUMBER PROVIDED BUT NO RESPONSE; LEFT VOICE MESSAGE.
--- NOTE | 2022-07-15 14:29 | NUR ---
TRANSPORTATION AT BEDSIDE TO PICKUP PT.
--- NOTE | 2022-07-15 14:37 | NUR ---
Patient discharged to [facility] in stable condition accompanied by private transportation. Written and verbal after care instructions given. Patient verbalizes understanding of instruction. All belongings returned to pt.
[2022-07-15 14:38] VITALS: BP 122/74
== END 2022-07-15 14:39 ==
LOC: ER 09:55
DX: R45.851 Suicidal ideations (principal); Z59.01 Sheltered homelessness; I10 Essential (primary) hypertension; Z20.822 Contact with and (suspected) exposure to COVID-19; Z91.012 Allergy to eggs; K74.60 Unspecified cirrhosis of liver; Z87.19 Personal history of other diseases of the digestive system; Z87.442 Personal history of urinary calculi; G89.29 Other chronic pain; M54.9 Dorsalgia, unspecified; Z79.82 Long term (current) use of aspirin; Z79.899 Other long term (current) drug therapy; Z86.59 Personal history of other mental and behavioral disorders
CPT/HCPCS: 99285; 85025; 80048; 80076; 81003; 36415; 87426; 80143; 80320; 80307; C9803; G0480

== ENCOUNTER 2022-07-26 03:50 | Emergency (ER) | payer OTHER ==
[~2022-07-26] VITALS: Ht 170.2 cm; Wt 47.6 kg
--- NOTE | 2022-07-26 05:04 | NUR ---
JAYASHREESEFRANKIE FROM STREET C/O SI WITH HEARING VOICES. PLAN TO JUMP INFRONT OF TRAFFIC. REQUESTING VOL PSYCH ADMIT. PT A/OX3. TOLERATING R/A WELL WITH NO RESP DISTRESS. PT CHANGED IN GOWN, BELONGINGS IN LOCKER, AND WANDED BY SECURITY. SAFETY MEASURES IN PLACE.
--- NOTE | 2022-07-26 05:06 | NUR ---
COVID ANTIGEN SWAB COLLECTED AND SENT TO LAB
--- NOTE | 2022-07-26 05:09 | NUR ---
URINE COLLECTED AND SENT TO LAB
--- NOTE | 2022-07-26 05:16 | NUR ---
TRAVELING PHLEBOTOMIST AT PT'S BEDSIDE
[2022-07-26 05:36] LABS: BASOPHILS % (AUTO) 0.3 % (0.0-2.0); EOSINOPHILS % (AUTO) 2.4 % (0.0-6.0); HEMATOCRIT 37 % (39-51); HEMOGLOBIN 12.6 g/dL (13.5-17.5); LYMPHOCYTES # (AUTO) 1.3 K/uL (0.8-4.8); LYMPHOCYTES % (AUTO) 15.6 % (20.0-44.0); MEAN CORPUSCULAR HGB CONC 34 g/dl (31.0-36.0); MEAN CORPUSCULAR VOLUME 80 fL (80-96); MONOCYTES # (AUTO) 0.9 K/uL (0.1-1.30); MONOCYTES % (AUTO) 11.6 % (2.0-12.0); NEUTROPHILS # (AUTO) 5.7 K/uL (1.8-8.9); NEUTROPHILS % (AUTO) 70.1 % (43.0-81.0); PLATELET COUNT (AUTO) 159 K/uL (150-450); RED BLOOD CELL COUNT(AUTO) 4.63 MIL/uL (4.5-6.0); WHITE BLOOD COUNT (AUTO) 8.2 K/uL (4.3-11.0)
[2022-07-26 05:43] LABS: CARBON DIOXIDE 24 mmol/L (21-32); CHLORIDE 101 mmol/L (98-107); CREATININE 1.2 mg/dL (0.6-1.3); GLUCOSE 136 mg/dL (74-106); POTASSIUM 4.1 mmol/L (3.5-5.1); SODIUM SERUM 137 mmol/L (136-145); UREA NITROGEN, BLOOD 13 mg/dL (7-18)
[2022-07-26 05:50] LABS: ALANINE AMINOTRANSFERASE 73 U/L (12-78); ALBUMIN 3.9 g/dL (3.4-5.0); ALCOHOL, BLOOD < 3 mg/dL (0-0); ALKALINE PHOSPHATASE 110 U/L (46-116); ASPARTATE AMINOTRANSFERASE 57 U/L (15-37); BILIRUBIN,DIRECT 0.2 mg/dL (0.0-0.2); BILIRUBIN,TOTAL 0.5 mg/dL (0.2-1.0); TOTAL PROTEIN, SERUM 7.6 g/dL (6.4-8.2)
[2022-07-26 05:58] LABS: ACETAMINOPHEN 0 ug/ml (10-30)
[2022-07-26 07:04] LABS: BILIRUBIN,URINE NEGATIVE (NEGATIVE); COLOR,URINE YELLOW (YELLOW); LEUKOCYTE ESTERASE ,URINE NEGATIVE (NEGATIVE); NITRITE, URINE NEGATIVE (NEGATIVE); PH,URINE 6.5 (5.0-8.0); PROTEIN,URINE NEGATIVE (NEGATIVE); UGLUCOSE NEGATIVE (NEGATIVE); UROBILINOGEN,URINE 0.2 EU/dL (0.2)
--- NOTE | 2022-07-26 08:00 | NUR ---
PT PROVIDED WITH BREAKFAST
--- NOTE | 2022-07-26 09:24 | NUR ---
[facility] CALLED FOR TRANSPORT ETA 60 MINS PER QUIRINO.
--- NOTE | 2022-07-26 10:36 | NUR ---
PICKED UP BY [facility] UNIT 320 IN STABLE CONDITION. ALL BELONGINGS WITH PATIENT. WILL BE TRANSFERRED TO [facility].
--- NOTE | 2022-07-26 10:37 | NUR ---
[facility] AT BEDSIDE TO PICKUP PT; ENDORSEMENT GIVEN
[2022-07-26 10:47] VITALS: BP 158/90
== END 2022-07-26 10:48 ==
LOC: ER 03:58
DX: R45.851 Suicidal ideations (principal); Z59.01 Sheltered homelessness; Z20.822 Contact with and (suspected) exposure to COVID-19; I10 Essential (primary) hypertension; E11.9 Type 2 diabetes mellitus without complications; K74.60 Unspecified cirrhosis of liver; Z87.442 Personal history of urinary calculi; G89.29 Other chronic pain; M54.9 Dorsalgia, unspecified; Z91.012 Allergy to eggs; Z79.899 Other long term (current) drug therapy; Z79.52 Long term (current) use of systemic steroids
CPT/HCPCS: 99285; 85025; 80048; 80076; 81003; 36415; 87426; 80143; 80320; 80307; C9803; G0480

== ENCOUNTER 2022-08-06 06:42 | Emergency (ER) | payer OTHER ==
[~2022-08-06] VITALS: Ht 162.6 cm; Wt 70.8 kg
--- NOTE | 2022-08-06 06:50 | NUR ---
JAYASHREESEL C/O +SI/-HI. HEARING VOICES. WANTS VOL PSYCH ADMIT. PT A/OX3. TOLERATING R/A WELL WITH NO RESP DISTRESS. AMB WITH STEADY GAIT. PT IN GOWN, BELONGINGS IN LOCKER, WANDED BY SECURITY. SAFETY MEASURES IN PLACE. Addendum: 08/06/22 at 0717 by JISIP BIBSELF C/O +SI/-HI PLAN TO OD ON PILLS. HEARING VOICES TO WATCH OUT AND SEEING CARS FOLLOWING HIM. WANTS VOL PSYCH ADMIT. PT A/OX3. TOLERATING R/A WELL WITH NO RESP DISTRESS. AMB WITH STEADY GAIT. PT IN GOWN, BELONGINGS IN LOCKER, WANDED BY SECURITY. SAFETY MEASURES IN PLACE.
--- NOTE | 2022-08-06 06:56 | NUR ---
COVID ANTIGEN SWAB COLLECTED AND SENT TO LAB
--- NOTE | 2022-08-06 07:05 | NUR ---
URINE COLLECTED AND SENT TO LAB
[2022-08-06 07:44] LABS: BILIRUBIN,URINE NEGATIVE (NEGATIVE); COLOR,URINE YELLOW (YELLOW); LEUKOCYTE ESTERASE ,URINE NEGATIVE (NEGATIVE); NITRITE, URINE NEGATIVE (NEGATIVE); PH,URINE 6.5 (5.0-8.0); PROTEIN,URINE NEGATIVE (NEGATIVE); UGLUCOSE NEGATIVE (NEGATIVE); UROBILINOGEN,URINE 0.2 EU/dL (0.2)
[2022-08-06 07:56] LABS: ALANINE AMINOTRANSFERASE 32 U/L (12-78); ALCOHOL, BLOOD < 3 mg/dL (0-0); ALKALINE PHOSPHATASE 131 U/L (46-116); ASPARTATE AMINOTRANSFERASE 31 U/L (15-37); BILIRUBIN,DIRECT 0.2 mg/dL (0.0-0.2); BILIRUBIN,TOTAL 0.6 mg/dL (0.2-1.0); CALCIUM, SERUM 9.1 mg/dL (8.5-10.1); CARBON DIOXIDE 27 mmol/L (21-32); CHLORIDE 102 mmol/L (98-107); CREATININE 1.1 mg/dL (0.6-1.3); GLUCOSE 153 mg/dL (74-106); POTASSIUM 3.9 mmol/L (3.5-5.1); SODIUM SERUM 139 mmol/L (136-145); UREA NITROGEN, BLOOD 18 mg/dL (7-18)
[2022-08-06 07:59] LABS: BASOPHILS % (AUTO) 0.5 % (0.0-2.0); EOSINOPHILS % (AUTO) 2.3 % (0.0-6.0); HEMATOCRIT 40 % (39-51); HEMOGLOBIN 13.4 g/dL (13.5-17.5); LYMPHOCYTES # (AUTO) 1.5 K/uL (0.8-4.8); MEAN CORPUSCULAR HGB CONC 34 g/dl (31.0-36.0); MEAN CORPUSCULAR VOLUME 81 fL (80-96); MONOCYTES # (AUTO) 0.7 K/uL (0.1-1.30); MONOCYTES % (AUTO) 8.4 % (2.0-12.0); NEUTROPHILS # (AUTO) 5.8 K/uL (1.8-8.9); NEUTROPHILS % (AUTO) 70.8 % (43.0-81.0); PLATELET COUNT (AUTO) 160 K/uL (150-450); RED BLOOD CELL COUNT(AUTO) 4.91 MIL/uL (4.5-6.0); WHITE BLOOD COUNT (AUTO) 8.3 K/uL (4.3-11.0)
[2022-08-06 08:14] LABS: ACETAMINOPHEN < 10 ug/ml (10-30)
--- NOTE | 2022-08-06 10:48 | NUR ---
PT ACCEPTED TO [facility] UNDER DR. REAGAN WILL ARRANGE TRANSPORT FOR REPORT CALL [phone]
[2022-08-06 11:01] VITALS: BP 146/96
--- NOTE | 2022-08-06 11:02 | NUR ---
patient left in stable condition accompanied by car driver going to [employer].
== END 2022-08-06 11:02 ==
LOC: ER 06:42
DX: R45.851 Suicidal ideations (principal); F22 Delusional disorders; F29 Unspecified psychosis not due to a substance or known physiological condition; F19.10 Other psychoactive substance abuse, uncomplicated; Z20.822 Contact with and (suspected) exposure to COVID-19; Z59.01 Sheltered homelessness; Z91.012 Allergy to eggs; Z91.018 Allergy to other foods; Z79.82 Long term (current) use of aspirin; K74.60 Unspecified cirrhosis of liver; E11.9 Type 2 diabetes mellitus without complications; Z87.442 Personal history of urinary calculi; G89.29 Other chronic pain; M54.9 Dorsalgia, unspecified; I11.0 Hypertensive heart disease with heart failure; I50.9 Heart failure, unspecified
CPT/HCPCS: 99285; 85025; 80048; 80076; 81003; 36415; 87426; 80143; 80320; 80307; C9803; G0480

== ENCOUNTER 2022-08-14 16:03 | Emergency (ER) | payer OTHER ==
--- NOTE | 2022-08-14 17:00 | NUR ---
Multiple calls ------No response. Eloped
--- NOTE | 2022-08-14 17:25 | NUR ---
Multiple calls ------No response. Eloped
== END 2022-08-14 17:26 | disposition home or self-care (01) ==
LOC: ER 16:09
DX: Z53.21 Procedure and treatment not carried out due to patient leaving prior to being seen by health care provider (principal)

== ENCOUNTER 2022-08-25 02:13 | Emergency (ER) | payer OTHER ==
[~2022-08-25] VITALS: Ht 170.2 cm; Wt 95.3 kg
--- NOTE | 2022-08-25 02:20 | NUR ---
Presenting to the ER complaining of suicidal thoughts with plans to take pills. Patient A, Ox4. ambulatory with steady gaits to the bathroom. urine sample and covid swab obtained and pt was placed on SI precaution. gowned up and belongings taken away. will continue to monitor.
--- NOTE | 2022-08-25 02:26 | NUR ---
COVID SWAB AND URINE COLLECTED AND SENT TO LAB
--- NOTE | 2022-08-25 02:56 | NUR ---
PHLEBOTMIST AT PT'S BEDSIDE
[2022-08-25 03:30] LABS: BASOPHILS % (AUTO) 0.2 % (0.0-2.0); HEMATOCRIT 38 % (39-51); HEMOGLOBIN 12.9 g/dL (13.5-17.5); LYMPHOCYTES # (AUTO) 1.3 K/uL (0.8-4.8); MEAN CORPUSCULAR HGB CONC 34 g/dl (31.0-36.0); MEAN CORPUSCULAR VOLUME 82 fL (80-96); MONOCYTES # (AUTO) 0.8 K/uL (0.1-1.30); MONOCYTES % (AUTO) 12.6 % (2.0-12.0); NEUTROPHILS # (AUTO) 3.9 K/uL (1.8-8.9); NEUTROPHILS % (AUTO) 63.2 % (43.0-81.0); PLATELET COUNT (AUTO) 145 K/uL (150-450); RED BLOOD CELL COUNT(AUTO) 4.68 MIL/uL (4.5-6.0); WHITE BLOOD COUNT (AUTO) 6.2 K/uL (4.3-11.0)
[2022-08-25 03:39] LABS: BILIRUBIN,URINE NEGATIVE (NEGATIVE); COLOR,URINE YELLOW (YELLOW); LEUKOCYTE ESTERASE ,URINE NEGATIVE (NEGATIVE); NITRITE, URINE NEGATIVE (NEGATIVE); PROTEIN,URINE NEGATIVE (NEGATIVE); UGLUCOSE NEGATIVE (NEGATIVE); UROBILINOGEN,URINE 0.2 EU/dL (0.2)
[2022-08-25 03:40] LABS: CALCIUM, SERUM 9.1 mg/dL (8.5-10.1); CARBON DIOXIDE 25 mmol/L (21-32); CHLORIDE 103 mmol/L (98-107); CREATININE 1.2 mg/dL (0.6-1.3); GLUCOSE 104 mg/dL (74-106); POTASSIUM 4.2 mmol/L (3.5-5.1); SODIUM SERUM 137 mmol/L (136-145); UREA NITROGEN, BLOOD 16 mg/dL (7-18)
[2022-08-25 03:51] LABS: ALANINE AMINOTRANSFERASE 37 U/L (12-78); ALBUMIN 3.8 g/dL (3.4-5.0); ALCOHOL, BLOOD < 3 mg/dL (0-0); ALKALINE PHOSPHATASE 97 U/L (46-116); ASPARTATE AMINOTRANSFERASE 36 U/L (15-37); BILIRUBIN,DIRECT 0.2 mg/dL (0.0-0.2); BILIRUBIN,TOTAL 0.5 mg/dL (0.2-1.0); TOTAL PROTEIN, SERUM 7.4 g/dL (6.4-8.2)
[2022-08-25 04:00] LABS: ACETAMINOPHEN 0 ug/ml (10-30)
--- NOTE | 2022-08-25 04:55 | NUR ---
FAXED FACE SHEET AND CLINICALS TO [facility]
--- NOTE | 2022-08-25 08:45 | NUR ---
DR REAGAN ACCEPTING PSYCH. CALL REPORT TO PARAMJIT [phone]. CALL REPORT AT 0954. JEWELRY MAKER WILL COME FUR POLISHER PTS, ETA IS 0636
--- NOTE | 2022-08-25 09:30 | NUR ---
patient was picked up by [facility] , provided necessary papers and patient belongings.
[2022-08-25 10:00] VITALS: BP 145/93
== END 2022-08-25 10:01 ==
LOC: ER 02:14
DX: R45.851 Suicidal ideations (principal); Z59.01 Sheltered homelessness; F31.9 Bipolar disorder, unspecified; F20.9 Schizophrenia, unspecified; Z91.012 Allergy to eggs; Z79.82 Long term (current) use of aspirin; E11.9 Type 2 diabetes mellitus without complications; G89.29 Other chronic pain; M54.9 Dorsalgia, unspecified; I10 Essential (primary) hypertension; Z20.822 Contact with and (suspected) exposure to COVID-19
CPT/HCPCS: 99285; 85025; 80048; 80076; 81003; 36415; 87426; 80143; 80320; 80307; C9803; G0480

== ENCOUNTER 2022-08-28 17:39 | Emergency (ER) | payer OTHER ==
[~2022-08-28] VITALS: Ht 167.6 cm; Wt 95.3 kg
[2022-08-28 18:01] VITALS: BP 132/114
--- NOTE | 2022-08-28 18:31 | NUR ---
RAPID COVID AND FLU SWABS OBTAINED AND SENT TO LAB
--- NOTE | 2022-08-28 18:40 | NUR ---
TECH AT BEDSIDE FOR EKG
--- NOTE | 2022-08-28 21:02 | NUR ---
Patient discharged to home in stable condition. Written and verbal after care instructions given. Patient verbalizes understanding of instruction.
== END 2022-08-28 21:30 | disposition home or self-care (01) ==
LOC: ER 17:45
DX: U07.1 COVID-19 (principal); Z79.82 Long term (current) use of aspirin; Z59.01 Sheltered homelessness; I11.0 Hypertensive heart disease with heart failure; I50.9 Heart failure, unspecified; F20.0 Paranoid schizophrenia; G89.29 Other chronic pain; M54.9 Dorsalgia, unspecified; K74.60 Unspecified cirrhosis of liver; E11.9 Type 2 diabetes mellitus without complications; Z91.018 Allergy to other foods; Z91.012 Allergy to eggs; Z79.899 Other long term (current) drug therapy
CPT/HCPCS: 99285; 71045; 87426; 93005; 87804 ×2; C9803

== ENCOUNTER 2022-09-17 14:20 | Inpatient (IN) | payer OTHER ==
[~2022-09-17] VITALS: Ht 170.2 cm; Wt 101.3 kg
[2022-09-17] MEDS ORDERED: IBUPROFEN 200 MG TABLET PO PRN (14:30)
[2022-09-17] MEDS ORDERED: MAG HYDROX/AL HYDROX/SIMETH 30 ML UDC PO PRN (14:30)
[2022-09-17] MEDS ORDERED: ZOLPIDEM TARTRATE 10 MG TABLET PO PRN (14:30)
[2022-09-17] MEDS ORDERED: MAGNESIUM HYDROXIDE 30 ML UDC PO PRN (14:30)
[2022-09-17] MEDS ORDERED: ACETAMINOPHEN ES 500 MG TABLET PO PRN (14:30)
--- NOTE | 2022-09-17 15:00 | NUR ---
MS PRINCIPAL WEB DEVELOPER NOTES PT ADMITTED TO UNIT AMBULATORY ACCOMPANIED BY DR. LEUNG'S SOFTWARE ENGINEER SALES WITH THE DIAGNOSIS OF SCHIZOPHRENIA. PT IS A/O X 4, ABLE TO MAKE NEEDS KNOW. CALM AND COOPERATIVE. NO C/O PAIN OR DISCOMFORT AT THIS TIME. PT ORIENTED TO STAFF AND ROOM. V/S TAKE AND RECORDED, BP-138/88, DE-91, RR-20, T-98.5, O2-98. PT ON ROOM AIR, TOLERATING WELL. BREATHING EVEN AND UNLABORED. NO SKIN ISSUES NOTED. NO IV ACCESS. LUNGS CLEAR ON AUSCULTATION. ADMISSION CARE DONE. SAFETY PRECAUTIONS IMPLEMENTED: BED IN LOWEST AND LOCKED POSITION, SIDE RAILS UP X 2, CALL LIGHT AND TRAY TABLE PLACED WITHIN EASY REACH. WILL CONTINUE TO MONITOR.
[2022-09-17] MEDS ORDERED: METFORMIN 500 MG TABLET PO SCH (17:00)
[2022-09-17] MEDS: METFORMIN PO SCH (17:58)
--- NOTE | 2022-09-17 18:35 | NUR ---
MS RN CLOSING NOTES PATIENT RESTING IN BED. A/O X 4, ABLE TO MAKE NEEDS KNOW. CALM AND COOPERATIVE. NO C/O PAIN OR DISCOMFORT WITHIN THE SHIFT. ON ROOM AIR, TOLERATING WELL. BREATHING EVEN AND UNLABORED. NO IV ACCESS. NEEDS ATTENDED. SAFETY PRECAUTIONS IMPLEMENTED: BED IN LOWEST AND LOCKED POSITION, SIDE RAILS UP X 2, CALL LIGHT AND TRAY TABLE PLACED WITHIN EASY REACH. WILL ENDORSE JEOVANY TO CONTENT EDITOR.
--- NOTE | 2022-09-17 19:33 | NUR ---
MS RN OPENING NOTES RECEIVED PATIENT AWAKE SITTING ON HIS BED. PATIENT IS A/O TIMES 4. NO PAIN NOTED. NO SOB NOTED. NO DISTRESS NOTED. ABLE TO MAKE NEEDS KNOWN AND AMBULATORY. NO IV ACCESS. ALL SAFETY MEASURES IN PLACE.BED LOCKED IN THE LOWEST POSITION. CALL LIGHT AND TABLE IN EASY REACH. SIDE RAILS UP TIMES 2. WILL CONTINUE TO MONITOR CLOSELY.
[2022-09-17 20:00] VITALS: BP 139/87
[2022-09-18] MEDS: BLOOD SUGAR DIAGNOSTIC 1 EACH STRIP IN SCH (06:08)
--- NOTE | 2022-09-18 06:28 | NUR ---
MS RN CLOSING NOTES PATIENT AWAKE IN HIS BED. PATIENT IS A/O TIMES 4. NO PAIN NOTED. NO SOB NOTED. NO DISTRESS NOTED. ABLE TO MAKE NEEDS KNOWN AND AMBULATORY. NO IV ACCESS. ALL SAFETY MEASURES IN PLACE.BED LOCKED IN THE LOWEST POSITION. CALL LIGHT AND TABLE IN EASY REACH. SIDE RAILS UP TIMES 2. BLOOD SUGAR CHECKED NOTED 100. MRSA SWAB DONE, SENT TO THE LAB. WILL ENDORSE FOR JEOVANY.
--- NOTE | 2022-09-18 07:58 | NUR ---
MS RN OPENING NOTES\ PATIENT AWAKE IN HIS BED. PATIENT IS A/O TIMES 4. NO PAIN NOTED. NO SOB NOTED. NO DISTRESS NOTED. ABLE TO MAKE NEEDS KNOWN AND AMBULATORY. NO IV ACCESS. ALL SAFETY MEASURES IN PLACE.BED LOCKED IN THE LOWEST POSITION. CALL LIGHT AND TABLE IN EASY REACH. SIDE RAILS UP TIMES 2. WILL CONTINUE TO MONITOR.
[2022-09-18] MEDS: METFORMIN PO SCH ×2 (08:33→18:12)
[2022-09-18] MEDS: ASPIRIN 81 MG TAB.CHEW PO SCH (08:34)
[2022-09-18] MEDS: ATENOLOL 25 MG TABLET PO SCH (08:34)
[2022-09-18] MEDS: LISINOPRIL (20MG) 20 MG TABLET PO SCH (08:34)
--- NOTE | 2022-09-18 18:30 | NUR ---
RN CLOSING NOTES PATIENT AWAKE IN BED,A/OX4. ON CLINICAL TRIAL. NO CONTRAPTIONS NOTED. AMBULATES, NO PAIN OR SHORTNESS OF BREATH NOTED AT THIS TIME. NO BEHAVIORAL CHANGES DURING MY SHIFT. ALL NEEDS ATTENDED. KEPT BED ON LOWER LOCK POSITION. KEPT CALL LIGHT WITHIN AT REACH. SAFETY PRECAUTIONS IN PLACED. WILL ENDORSED TO NIGHT NURSE SHIFT FOR JEOVANY.
--- NOTE | 2022-09-18 19:30 | NUR ---
MS RN OPENING NOTES RECEIVED PATIENT IN THE HALLWAY. PATIENT IS A/O TIMES 4. NO PAIN NOTED. NO SOB NOTED. NO DISTRESS NOTED. ABLE TO MAKE NEEDS KNOWN AND AMBULATORY. NO IV ACCESS. ALL SAFETY MEASURES IN PLACE.BED LOCKED IN THE LOWEST POSITION. CALL LIGHT AND TABLE IN EASY REACH. SIDE RAILS UP TIMES 2. PATIENT INFORMED IS GOING OUT TO SMOKE CIGARETTE AND WILL BE BACK. WILL CONTINUE TO MONITOR CLOSELY.
[2022-09-18 20:00] VITALS: BP 125/51
[2022-09-18] MEDS: ZOLPIDEM TARTRATE 10 MG TABLET PO PRN (20:17)
--- NOTE | 2022-09-18 20:17 | NUR ---
RN NOTES PATIENT REQUESTED FOR SLEEPING PILL. AMBIEN 10 MG PRN GIVEN ORDERED FOR INSOMNIA PER PATIENT REQUEST.
[2022-09-19] MEDS: LORAZEPAM 1 MG TABLET FOR AGITATION PO PRN (02:30)
--- NOTE | 2022-09-19 02:30 | NUR ---
RN NOTES PATIENT NOTED WITH ANXIETY. PRN ATIVAN 1 MG GIVEN FOR ANXIETY ORDERED PER PATIENT'S REQUEST.
[2022-09-19] MEDS: BLOOD SUGAR DIAGNOSTIC 1 EACH STRIP IN SCH (05:56)
--- NOTE | 2022-09-19 07:15 | NUR ---
MS RN OPENING NOTES RECEIVED PATIENT AWAKE IN BED. PATIENT IS A/O X 4. NO PAIN NOTED. NO SOB NOTED. NO DISTRESS NOTED. ABLE TO MAKE NEEDS KNOWN AND AMBULATORY. NO IV ACCESS. ALL SAFETY MEASURES IN PLACE.BED LOCKED IN THE LOWEST POSITION. CALL LIGHT AND TABLE IN EASY REACH. SIDE RAILS UP TIMES 2. WILL CONTINUE TO MONITOR THE PATIENT.
[2022-09-19 08:00] VITALS: BP 129/92
[2022-09-19] MEDS: ASPIRIN 81 MG TAB.CHEW PO SCH (09:26)
[2022-09-19] MEDS: LISINOPRIL (20MG) 20 MG TABLET PO SCH (09:29)
[2022-09-19] MEDS: ATENOLOL 25 MG TABLET PO SCH (09:30)
[2022-09-19] MEDS: METFORMIN PO SCH ×2 (09:31→17:15)
[2022-09-19 16:00] VITALS: BP 144/81
--- NOTE | 2022-09-19 18:16 | NUR ---
MS RN CLOSING NOTES PATIENT AWAKE IN HIS BED, A/O X 4. NO PAIN, NO SOB, NO DISTRESS NOTED. ABLE TO MAKE NEEDS KNOWN AND AMBULATORY. NO IV ACCESS. ALL SAFETY MEASURES IN PLACE. BED LOCKED IN THE LOWEST POSITION. CALL LIGHT AND TABLE WITHIN REACH. SIDE RAILS UP TIMES 2. ALL MEDICATIONS GIVEN PRESCRIBED FOR THE DAY, ALL NEEDS MET. WILL ENDORSE TO BARREL RIFLER OPERATOR NURSE FOR JEOVANY
--- NOTE | 2022-09-19 19:30 | NUR ---
MS RN OPENING NOTE RECEIVED PATIENT AWAKE IN BED; PATIENT IS A/O X 4, ABLE TO MAKE NEEDS KNOWN; NO COMPLAINTS OF PAIN AND DISCOMFORT NOTED; NO SOB NOTED; NO DISTRESS NOTED; NO IV ACCESS; SAFETY MEASURES IMPLEMENTED, BED LOCKED IN THE LOWEST POSITION, CALL LIGHT AND TABLE WITHIN REACH; SIDE RAILS UP TIMES 2; WILL CONTINUE TO MONITOR THROUGHOUT SHIFT
[2022-09-20] MEDS: BLOOD SUGAR DIAGNOSTIC 1 EACH STRIP IN SCH (06:31)
--- NOTE | 2022-09-20 06:50 | NUR ---
MS RN CLOSING NOTE PATIENT IS A/O X 4, ABLE TO MAKE NEEDS KNOWN; NO COMPLAINTS OF PAIN AND DISCOMFORT NOTED; NO SOB NOTED; NO DISTRESS NOTED; NO IV ACCESS; ACCUCHECK WAS DONE AND FBS WAS 97; SAFETY MEASURES IMPLEMENTED, BED LOCKED IN THE LOWEST POSITION, CALL LIGHT AND TABLE WITHIN REACH; SIDE RAILS UP TIMES 2; WILL ENDORSE TO AM NURSE FOR JEOVANY.
--- NOTE | 2022-09-20 07:34 | NUR ---
MS RN OPENING NOTE RECEIVED PATIENT IN BED AWAKE ; PATIENT IS A/O X 4, ABLE TO MAKE NEEDS KNOWN; NO COMPLAINTS OF PAIN AND DISCOMFORT NOTED; NO SOB NOTED; NO DISTRESS NOTED; NO IV ACCESS; ON CLINICAL TRIALS AND NO BEHAVIOR NOTED AT THIS TIME SAFETY MEASURES IMPLEMENTED, BED LOCKED IN THE LOWEST POSITION, CALL LIGHT AND TABLE WITHIN REACH; SIDE RAILS UP TIMES 2; WILL CONTINUE TO MONITOR THROUGHOUT SHIFT
[2022-09-20] MEDS: LISINOPRIL (20MG) 20 MG TABLET PO SCH (09:33)
[2022-09-20] MEDS: ASPIRIN 81 MG TAB.CHEW PO SCH (09:33)
[2022-09-20] MEDS: METFORMIN PO SCH ×2 (09:41→17:26)
[2022-09-20] MEDS: ATENOLOL 25 MG TABLET PO SCH (09:41)
[2022-09-20 16:00] VITALS: BP 153/99
--- NOTE | 2022-09-20 18:28 | NUR ---
MS RN CLOSING NOTE RECEIVED PATIENT IN BED AWAKE ; PATIENT IS A/O X 4, ABLE TO MAKE NEEDS KNOWN; NO COMPLAINTS OF PAIN AND DISCOMFORT NOTED; NO SOB NOTED; NO DISTRESS NOTED; NO IV ACCESS; ON CLINICAL TRIALS AND NO BEHAVIOR NOTED AT THIS TIME SAFETY MEASURES IMPLEMENTED, BED LOCKED IN THE LOWEST POSITION, CALL LIGHT AND TABLE WITHIN REACH; SIDE RAILS UP TIMES 2; WILL CONTINUE TO MONITOR THROUGHOUT SHIFT
--- NOTE | 2022-09-20 19:30 | NUR ---
MS RN OPENING NOTE RECEIVED PATIENT IN BED; AWAKE, A/O X 4. ON ROOM AIR; TOLERATING WELL. IN NO ACUTE DISTRESS. DENIES ANY PAIN OR DISCOMFORT. NO IV ACCESS. ABLE TO VERBALIZE NEEDS. SAFETY MEASURES IMPLEMENTED: CALL LIGHT AND TABLE WITHIN REACH, SIDE RAILS UP X2, BED IN LOWEST LOCKED POSITION. WILL CONTINUE PLAN OF CARE.
[2022-09-20 20:00] VITALS: BP 151/98
--- NOTE | 2022-09-21 06:40 | NUR ---
MS RN CLOSING NOTE PATIENT IN BED; AWAKE, A/O X 4. STABLE ON ROOM AIR. IN NO APPARENT DISTRESS. NO C/O ANY PAIN OR DISCOMFORT NOTED AT THIS TIME. NO IV ACCESS. ALL NEEDS ATTENDED. SAFETY MEASURES IN PLACE: CALL LIGHT AND TABLE WITHIN REACH, SIDE RAILS UP X2, BED IN LOWEST LOCKED POSITION. ENDORSED TO MORNING SHIFT FOR JEOVANY.
[2022-09-21] MEDS: BLOOD SUGAR DIAGNOSTIC 1 EACH STRIP IN SCH (06:48)
--- NOTE | 2022-09-21 07:25 | NUR ---
MS RN OPENING NOTE RECEIVED PT AWAKE AND RESTING IN BED. PT IS A/O X4, ABLE TO MAKE NEEDS KNOWN. PT IS UNDER CLINICAL TRIAL. NO EPISODES OF ANY UNTOWARD BEHAVIOR NOTED AT THIS TIME. PT IS ON ROOM AIR, TOLERATING WELL. NO SOB NOTED. NOT IN ANY SIGN OF RESPIRATORY DISTRESS. SAFETY MEASURES IN PLACE: BED IN LOWEST AND LOCKED POSITION, SIDE RAILS UPX2, AND CALL LIGHT WITHIN REACH. WILL CONTINUE TO MONITOR PT.
[2022-09-21 08:00] VITALS: BP 127/74
[2022-09-21] MEDS: ATENOLOL 25 MG TABLET PO SCH ×2 (09:00→09:58)
[2022-09-21] MEDS: LISINOPRIL (20MG) 20 MG TABLET PO SCH ×2 (09:00→09:57)
[2022-09-21] MEDS: ASPIRIN 81 MG TAB.CHEW PO SCH ×2 (09:00→09:57)
[2022-09-21] MEDS: METFORMIN PO SCH ×4 (09:00→18:47)
--- NOTE | 2022-09-21 09:43 | NUR ---
RN NOTE ALL MEDICATIONS SCHEDULED AT 0900 NOT ADMINISTERED. PT IS NOT IN THE UNIT AT THIS TIME.
[2022-09-21 16:00] VITALS: BP 133/81
--- NOTE | 2022-09-21 17:47 | NUR ---
RN NOTE [facility] HOME MEDICATION SCHEDULED AT 1700 NOT ADMINISTERED. PT IS NOT IN THE UNIT AT THIS TIME.
--- NOTE | 2022-09-21 18:47 | NUR ---
RN NOTE [facility] HOME MEDICATION SCHEDULED AT 1700 JUST ADMINISTERED. PT JUST CAME BACK FROM THE UNIT.
--- NOTE | 2022-09-21 19:29 | NUR ---
MS RN CLOSING NOTE PT AWAKE AND RESTING IN BED. PT IS A/O X4, ABLE TO MAKE NEEDS KNOWN. PT IS UNDER CLINICAL TRIAL. NO EPISODES OF ANY UNTOWARD BEHAVIOR NOTED AT THIS TIME. PT IS ON ROOM AIR, TOLERATING WELL. NO SOB NOTED. NOT IN ANY SIGN OF RESPIRATORY DISTRESS. ALL NEEDS ATTENDED. KEPT CLEAN AND COMFORTABLE AT ALL TIMES. SAFETY MEASURES IN PLACE: BED IN LOWEST AND LOCKED POSITION, SIDE RAILS UPX2, AND CALL LIGHT WITHIN REACH. WILL ENDORSED TO PENCIL SORTER NURSE FOR JEOVANY.
--- NOTE | 2022-09-21 19:31 | NUR ---
RN OPENING NOTES; RECEIVED PT IN BED AAOX4 ABLE TO VERBALIZE NEEDS,RM AIR CALVIN WELL SAT 98%.NO SOB/DISTRESS NOTED,NO BEHAVIORAL CHANGES AT THIS TIME,SAFETY MEASURE IN PLACE.CALL LIGHT WITHIN REACH,WILL CONTINUE TO MONITOR.
[2022-09-21 20:39] VITALS: BP 129/86
[2022-09-21] MEDS: ZOLPIDEM TARTRATE 10 MG TABLET PO PRN (23:25)
--- NOTE | 2022-09-22 06:20 | NUR ---
RN CLOSING NOTES; PT IN BED AAOX4 ABLE TO VERBALIZE NEEDS,RM AIR CALVIN WELL SAT 98%.NO SOB/DISTRESS NOTED,NO BEHAVIORAL CHANGES DURING SHIFT ,SAFETY MEASURE IN PLACE.CALL LIGHT WITHIN REACH,WILL ENDORSED TO NEXT SHIFT.
[2022-09-22] MEDS: BLOOD SUGAR DIAGNOSTIC 1 EACH STRIP IN SCH (06:26)
--- NOTE | 2022-09-22 07:15 | NUR ---
MS RN OPENING NOTES - CLINICAL TRIAL RECEIVED PATIENT AWAKE, WALKING AROUND, PATIENT IS A/O X 4. ON ROOM AIR WITHOUT DIFFICULTY, NO NOTED ACUTE DISTRESS, ABLE TO MAKE NEEDS KNOWN. DENIES PAIN NOR DISCOMFORT. NO IV ACCESS AT THIS TIME. ALL SAFETY MEASURES IN PLACE: BED LOCKED AND IN LOWEST POSITION, CALL LIGHT AND TRAY TABLE WITHIN EASY REACH. SIDE RAILS UP 2X. WILL CONTINUE TO MONITOR THE PATIENT.
[2022-09-22 08:00] VITALS: BP 124/77
[2022-09-22] MEDS: LISINOPRIL (20MG) 20 MG TABLET PO SCH (08:22)
[2022-09-22] MEDS: METFORMIN PO SCH ×2 (08:22→16:17)
[2022-09-22] MEDS: ATENOLOL 25 MG TABLET PO SCH (08:22)
[2022-09-22] MEDS: ASPIRIN 81 MG TAB.CHEW PO SCH (08:22)
[2022-09-22 16:00] VITALS: BP 128/75
--- NOTE | 2022-09-22 18:20 | NUR ---
MS RN CLOSING NOTES - CLINICAL TRIAL PATIENT AWAKE, SITTING IN BED, A/O X 4. STILL ON ROOM AIR WITHOUT DIFFICULTY, NO NOTED ACUTE DISTRESS, DENIED PAIN NOR DISCOMFORT. NO IV ACCESS AT THIS TIME. NO BEHAVIORAL CHANGES NOTED DURING THE ENTIRE DAY. ALL SAFETY MEASURES MAINTAINED: BED LOCKED AND IN LOWEST POSITION, CALL LIGHT AND TRAY TABLE WITHIN EASY REACH. SIDE RAILS UP 2X. WILL ENDORSE TO REHABILITATION TEACHER NURSE.
--- NOTE | 2022-09-22 19:20 | NUR ---
MS RN OPENING NOTES PATIENT JUST CAME BACK TO THE UNIT FROM GOING OUT. PT IS ON CLINICAL TRIALHE IS ALERT AND ORIENTED, AO X 4. PT IS ON RA, TOLERATED WELL. NO S/S OF DISTRESS OR SOB. PT DOES NOT HAVE IV ACCESS. HE DENIES OF HAVING PAIN OR DISCOMFORT. PT IS CALM, NO BEHAVIORAL CHANGES. INSTRUCTED PATIENT THAT HE NEEDS TO BE PRESENT AT UNIT BEFORE BREAKFAST SO WE CAN HAVE HIS ACCU-CHEK; PT VERBALIZED UNDERSTANDING. SAFETY MEASURES ARE IN PLACED: BED IN LOWEST AND LOCKED POSITION; SIDE RAILS UP X 2; CALL LIGHT AND TABLE ARE WITHIN REACH. WILL CONTINUE MONITORUING THE PT AND PROVIDE THE CARE PT NEEDS.
[2022-09-22 20:00] VITALS: BP 118/73
[2022-09-22] MEDS: LORAZEPAM 1 MG TABLET FOR AGITATION PO PRN (20:32)
[2022-09-22] MEDS: ZOLPIDEM TARTRATE 10 MG TABLET PO PRN (21:57)
--- NOTE | 2022-09-23 06:51 | NUR ---
MS RN CLOSING NOTES PATIENT IS SLEEPING IN BED, EASILY BEING AROUSED. HE IS ALERT AND ORIENTED, AO X 4. PT IS ON RA, TOLERATED WELL. NO S/S OF DISTRESS OR SOB. PT DOES NOT HAVE IV ACCESS. HE DENIES OF HAVING PAIN OR DISCOMFORT. PT IS CALM, NO BEHAVIORAL CHANGES THROUGHOUT THE SHIFT. SAFETY MEASURES ARE IN PLACED: BED IN LOWEST AND LOCKED POSITION; SIDE RAILS UP X 2; CALL LIGHT AND TABLE ARE WITHIN REACH. WILL ENDORSE NEXT SHIFT NURSE FOR CONTINUING PT CARE.
[2022-09-23] MEDS: BLOOD SUGAR DIAGNOSTIC 1 EACH STRIP IN SCH (06:52)
[2022-09-23 08:00] VITALS: BP 127/72
--- NOTE | 2022-09-23 08:00 | NUR ---
MS RN OPENING NOTES PATIENT AWAKE IN BED, ALERT AND ORIENTED, AO X 4. PT IS ON RA, TOLERATING WELL. NO S/S OF DISTRESS OR SOB. PT DOES NOT HAVE IV ACCESS. HE DENIES OF HAVING PAIN OR DISCOMFORT. SAFETY MEASURES ARE IN PLACED: BED IN LOWEST AND LOCKED POSITION; SIDE RAILS UP X 2; CALL LIGHT AND TABLE ARE WITHIN REACH. WILL MONITOR.
[2022-09-23] MEDS: LISINOPRIL (20MG) 20 MG TABLET PO SCH (08:57)
[2022-09-23] MEDS: METFORMIN PO SCH ×2 (08:57→17:29)
[2022-09-23] MEDS: ATENOLOL 25 MG TABLET PO SCH (09:52)
[2022-09-23] MEDS: ASPIRIN 81 MG PO SCH (10:19)
[2022-09-23 16:00] VITALS: BP 145/79
--- NOTE | 2022-09-23 18:37 | NUR ---
MS RN CLOSING NOTES PATIENT IS AWAKE IN BED, EASILY BEING AROUSED. HE IS ALERT AND ORIENTED, AO X 4. PT IS ON RA, TOLERATED WELL. NO S/S OF DISTRESS OR SOB. PT DOES NOT HAVE IV ACCESS. HE DENIES OF HAVING PAIN OR DISCOMFORT. PT IS CALM, NO BEHAVIORAL CHANGES THROUGHOUT THE SHIFT. SAFETY MEASURES ARE IN PLACED: BED IN LOWEST AND LOCKED POSITION; SIDE RAILS UP X 2; CALL LIGHT AND TABLE ARE WITHIN REACH. WILL ENDORSE NEXT SHIFT NURSE FOR CONTINUING PT CARE.
--- NOTE | 2022-09-23 19:56 | NUR ---
RN OPENING NOTE PATIENT AWAKE IN BED WATCHING TV, ALERT/ORIENTED X 4, PT ABLE TO MAKE NEEDS KNOWN. PATIENT STABLE ON RA, NO S/S OF DISTRESS OR SOB NOTED, BREATHING EVEN AND UNLABORED. PATIENT AMBULATORY WITH STEADY GAIT. NO IV ACCESS D/T CLINICAL TRIAL STATUS. SAFETY MEASURES IN PLACE: CALL LIGHT WITHIN REACH, SIDE RAILS UP X 2, BED LOCKED IN LOWEST POSITION. WILL CONTINUE TO MONITOR PATIENT
[2022-09-23 20:00] VITALS: BP 129/83
--- NOTE | 2022-09-24 07:23 | NUR ---
RN CLOSING NOTE PATIENT OUT SMOKING AT THIS TIME, ALERT/ORIENTED X 4, PT ABLE TO MAKE NEEDS KNOWN. PATIENT STABLE ON RA, NO S/S OF DISTRESS OR SOB NOTED, BREATHING EVEN AND UNLABORED. PATIENT AMBULATORY WITH STEADY GAIT. NO IV ACCESS D/T CLINICAL TRIAL STATUS. PATIENT NEEDS MET THROUGHOUT SHIFT. NO SIGNIFICANT CHANGES, NO BEHAVIORAL ISSUES THIS SHIFT. SAFETY MEASURES IN PLACE: CALL LIGHT WITHIN REACH, SIDE RAILS UP X 2, BED LOCKED IN LOWEST POSITION. ENDORSED TO DAYSHIFT RN FOR CONTINUITY OF CARE
--- NOTE | 2022-09-24 07:35 | NUR ---
RN OPENING NOTE PATIENT AWAKE IN BED, A/O X 4. ABLE TO MAKE NEEDS KNOWN. PT IS ON RA, TOLERATING WELL. NO S/S OF DISTRESS OR SOB NOTED. PT DOES NOT HAVE IV ACCESS D/T CLINICAL TRIAL STATUS. HE DENIES OF HAVING PAIN OR DISCOMFORT. SAFETY MEASURES ARE IN PLACED: BED IN LOWEST AND LOCKED POSITION; SIDE RAILS UP X 2; CALL LIGHT AND TABLE ARE WITHIN REACH. WILL CONTINUE TO MONITOR.
[2022-09-24] MEDS: BLOOD SUGAR DIAGNOSTIC 1 EACH STRIP IN SCH (07:41)
[2022-09-24] MEDS: ASPIRIN 81 MG PO SCH (08:02)
[2022-09-24] MEDS: ATENOLOL 25 MG TABLET PO SCH (08:03)
[2022-09-24] MEDS: LISINOPRIL (20MG) 20 MG TABLET PO SCH (08:03)
[2022-09-24] MEDS: METFORMIN PO SCH ×2 (08:03→16:09)
[2022-09-24 08:14] VITALS: BP 131/80
[2022-09-24 16:00] VITALS: BP 145/80
--- NOTE | 2022-09-24 18:32 | NUR ---
RN CLOSING NOTE PATIENT IN HIS ROOM, A/O X 4, PT ABLE TO MAKE NEEDS KNOWN. PATIENT STABLE ON RA, NO S/S OF DISTRESS OR SOB NOTED, BREATHING EVEN AND NON LABORED. NO IV ACCESS D/T CLINICAL TRIAL STATUS. PATIENT NEEDS MET THROUGHOUT SHIFT. NO SIGNIFICANT CHANGES, NO BEHAVIORAL ISSUES THIS SHIFT. SAFETY MEASURES IN PLACE: CALL LIGHT WITHIN REACH, SIDE RAILS UP X 2, BED LOCKED IN LOWEST POSITION. ENDORSED TO NEXT SHIFT NURSE FOR JEOVANY.
--- NOTE | 2022-09-24 19:21 | NUR ---
RN OPENING NOTE PATIENT LEFT THE UNIT, PATIENT WAS ABLE TO LOG OUT. A/O X 4, PT ABLE TO MAKE NEEDS KNOWN. PATIENT STABLE ON RA, NO S/S OF DISTRESS OR SOB, BREATHING EVEN AND NON LABORED. SAFETY MEASURES IN PLACE: CALL LIGHT WITHIN REACH, SIDE RAILS UP X 2, BED LOCKED IN LOWEST POSITION.
[2022-09-24 20:00] VITALS: BP 137/86
--- NOTE | 2022-09-25 06:59 | NUR ---
RN CLOSING NOTE PATIENT IS IN HIS ROOM. A/O X 4, PT ABLE TO MAKE NEEDS KNOWN. PATIENT STABLE ON RA, NO S/S OF DISTRESS OR SOB, BREATHING EVEN AND NON LABORED. ALL NEEDS ARE MET. NO BEHAVIORAL CHANGES NOTED. SAFETY MEASURES IN PLACE: CALL LIGHT WITHIN REACH, SIDE RAILS UP X 2, BED LOCKED IN LOWEST POSITION. WILL ENDORSE TO NEXT SHIFT NURSE FOR CONTINUITY OF CARE.
--- NOTE | 2022-09-25 07:33 | NUR ---
RN OPENING NOTE PATIENT AWAKE IN BED, A/O X 4. ABLE TO MAKE NEEDS KNOWN. PT IS ON RA, TOLERATING WELL. NO S/S OF DISTRESS OR SOB NOTED. PT DOES NOT HAVE IV ACCESS D/T CLINICAL TRIAL STATUS. PATIENT IS NPO. HE DENIES OF HAVING PAIN OR DISCOMFORT. SAFETY MEASURES ARE IN PLACED: BED IN LOWEST AND LOCKED POSITION; SIDE RAILS UP X 2; CALL LIGHT AND TABLE ARE WITHIN REACH. WILL CONTINUE TO MONITOR.
[2022-09-25] MEDS: BLOOD SUGAR DIAGNOSTIC 1 EACH STRIP IN SCH (07:53)
[2022-09-25] MEDS: ATENOLOL 25 MG TABLET PO SCH (08:21)
[2022-09-25] MEDS: ASPIRIN 81 MG PO SCH (08:21)
[2022-09-25] MEDS: METFORMIN PO SCH ×2 (08:22→16:21)
[2022-09-25] MEDS: LISINOPRIL (20MG) 20 MG TABLET PO SCH (08:22)
[2022-09-25] MEDS ORDERED: LORAZEPAM 1 MG TABLET FOR AGITATION PO PRN (12:00)
[2022-09-25] MEDS ORDERED: ZOLPIDEM TARTRATE 10 MG TABLET PO PRN (12:00)
[2022-09-25 15:54] VITALS: BP 127/80
--- NOTE | 2022-09-25 19:35 | NUR ---
MS RN OPENING NOTES: RECEIVED PATIENT AWAKE IN BED, BED IN LOW POSITION CALL LIGHTS WITHIN REACH, NO COMPLAIN OF PAIN AND DISCOMFORT AT THIS TIME , ON ROOM AIR SATURATING WELL, PATIENT IS A/O X4 ABLE TO MAKE NEEDS KNOWN, ON CLINICAL TRIAL NO CHANGES IN BEHAVIOR WAS OBSERVED, WILL CONTINUE TO MONITOR.
[2022-09-25 20:00] VITALS: BP 108/82
--- NOTE | 2022-09-26 06:22 | NUR ---
RN CLOSING NOTES: PATIENT SLEEP IN BED COMFORTABLY, AROUSABLE TO VERBAL STIMULI, BED IN LOW POSITION CALL LIGHTS WITHIN REACH, NO COMPLAIN OF PAIN AND DISCOMFORT AT THIS JULIANNE,ON ROOM AIR SATURATING WELL, PATIENT IS A/O X4 ABLE TO MAKE NEEDS KNOWN, ON CLINICAL TRIAL NO CHANGES IN BEHAVIOR WAS OBSERVED, PATIENT KEPT CLEAN AND DRY ALL NEEDS MET ENDORSE TO INCOMING SHIFT.
--- NOTE | 2022-09-26 07:19 | NUR ---
MS RN OPENING NOTE RECEIVED PATIENT AWAKE, ALERT AND OREINTED X 4, ABLE TO MAKE NEEDS KNOWN. ON ROOM AIR WITH NO SIGNS OF DISTRESS NOTED. NO COMPLAIN OF PAIN OR DISCOMFORT. PATIENT IS AMBULATORY WITH STEADY GAIT. PATIENT WITH GOOD DISPOSITION. BED IN LOW, LOCKED POSITION, CALL LIGHTS WITHIN REACH, AT ALL TIMES. WILL CONTINUE WITH PLAN OF CARE.
[2022-09-26] MEDS: BLOOD SUGAR DIAGNOSTIC 1 EACH STRIP IN SCH (08:01)
[2022-09-26] MEDS: ASPIRIN 81 MG PO SCH (08:09)
[2022-09-26] MEDS: METFORMIN PO SCH (08:09)
[2022-09-26 08:12] VITALS: BP 141/86
[2022-09-26] MEDS: LISINOPRIL (20MG) 20 MG TABLET PO SCH (08:12)
[2022-09-26] MEDS: ATENOLOL 25 MG TABLET PO SCH (08:12)
--- NOTE | 2022-09-26 08:30 | NUR ---
MS RN NOTE DUE MEDS GIVEN ORDERED. IN STABLE CONDITION.
--- NOTE | 2022-09-26 09:15 | NUR ---
MS RN NOTE RECEIVED A CALL FROM DR. LEUNG TO DISCHARGE PATIENT. PATIENT APPARENTLY AWARE OF POSSIBLE DISCHARGE SINCE YESTERDAY. DISCHARGE ORDER ENTERED. PATIENT READY FOR DISCHARGE SINCE THIS MORNING. HEALTH TEACHING DONE REGARDING DISCHARGE AND DISCHARGE INSTRUCTIONS. VERBALIZED UNDERSTANDING AND APPRECIATION. DOCUMENTS SIGNED AND ATTACHED TO CHART. DISCHARGED ORDERED. ENDORSED ACCORDINGLY.
[2022-09-26] MEDS ORDERED: INVEST MED MK-8189-008-02 MISC 1 DOSE PO SCH (20:00)
[2022-10-02] MEDS ORDERED: ZOLPIDEM TARTRATE 10 MG TABLET PO PRN (12:00)
[2022-10-02] MEDS ORDERED: LORAZEPAM 1 MG TABLET FOR AGITATION PO PRN (12:00)
[2022-10-09] MEDS ORDERED: ZOLPIDEM TARTRATE 10 MG TABLET PO PRN (12:00)
[2022-10-09] MEDS ORDERED: LORAZEPAM 1 MG TABLET FOR AGITATION PO PRN (12:00)
[2022-10-16] MEDS ORDERED: ZOLPIDEM TARTRATE 10 MG TABLET PO PRN (12:00)
[2022-10-16] MEDS ORDERED: LORAZEPAM 1 MG TABLET FOR AGITATION PO PRN (12:00)
[2022-10-23] MEDS ORDERED: ZOLPIDEM TARTRATE 10 MG TABLET PO PRN (12:00)
[2022-10-23] MEDS ORDERED: LORAZEPAM 1 MG TABLET FOR AGITATION/ANXIETY PO PRN (12:00)
[2022-10-30] MEDS ORDERED: LORAZEPAM 1 MG TABLET FOR AGITATION/ANXIETY PO PRN (12:00)
[2022-10-30] MEDS ORDERED: ZOLPIDEM TARTRATE 10 MG TABLET PO PRN (12:00)
[2022-11-06] MEDS ORDERED: ZOLPIDEM TARTRATE 10 MG TABLET PO PRN (12:00)
[2022-11-06] MEDS ORDERED: LORAZEPAM 1 MG TABLET FOR AGITATION/ANXIETY PO PRN (12:00)
== END 2022-09-26 09:00 | disposition home or self-care (01) | DRG 951 ==
LOC: GPSOV 14:20 → UNDOADMIN 14:23 → MED 15:00
PROVIDERS: ADMIT Psychiatry & Neurology Psychiatry; ATTEND Psychiatry & Neurology Psychiatry
DX: Z00.6 Encounter for examination for normal comparison and control in clinical research program (principal); F20.0 Paranoid schizophrenia; Z79.899 Other long term (current) drug therapy; Z81.8 Family history of other mental and behavioral disorders; E11.9 Type 2 diabetes mellitus without complications; I10 Essential (primary) hypertension; H50.9 Unspecified strabismus; G47.00 Insomnia, unspecified
CPT/HCPCS: 82962-TC; 87081-TC; G0378

== ENCOUNTER 2022-10-07 04:04 | Emergency (ER) | payer OTHER ==
[~2022-10-07] VITALS: Ht 162.6 cm; Wt 99.8 kg
--- NOTE | 2022-10-07 04:44 | NUR ---
BIBSELF C/O SI WITH PLAN TO OD ON [facility]. REQUESTING [facility] ADMISSION. PLACED IN GOWN, BELONINGS PLACED IN SAFE LOCKER. AT BEDSIDE FOR EVAL.
--- NOTE | 2022-10-07 04:45 | NUR ---
URINE COLLECTED, SENT TO LAB.
--- NOTE | 2022-10-07 04:45 | NUR ---
DANIELLEID SWABBED, SENT TO LAB.
[2022-10-07 05:25] LABS: BASOPHILS # (AUTO) 0.1 K/uL (0.0-0.2); BASOPHILS % (AUTO) 0.4 % (0.0-2.0); EOSINOPHILS % (AUTO) 0.3 % (0.0-6.0); HEMATOCRIT 43 % (39-51); HEMOGLOBIN 14.6 g/dL (13.5-17.5); LYMPHOCYTES # (AUTO) 2.1 K/uL (0.8-4.8); LYMPHOCYTES % (AUTO) 14.8 % (20.0-44.0); MEAN CORPUSCULAR HGB CONC 34 g/dl (31.0-36.0); MEAN CORPUSCULAR VOLUME 81 fL (80-96); MONOCYTES # (AUTO) 1.4 K/uL (0.1-1.30); MONOCYTES % (AUTO) 10.1 % (2.0-12.0); NEUTROPHILS # (AUTO) 10.6 K/uL (1.8-8.9); NEUTROPHILS % (AUTO) 74.4 % (43.0-81.0); PLATELET COUNT (AUTO) 189 K/uL (150-450); RED BLOOD CELL COUNT(AUTO) 5.38 MIL/uL (4.5-6.0); WHITE BLOOD COUNT (AUTO) 14.3 K/uL (4.3-11.0)
[2022-10-07 05:26] LABS: BILIRUBIN,URINE NEGATIVE (NEGATIVE); COLOR,URINE DARK YELLOW (YELLOW); LEUKOCYTE ESTERASE ,URINE NEGATIVE (NEGATIVE); NITRITE, URINE NEGATIVE (NEGATIVE); PROTEIN,URINE 1+ mg/dl (NEGATIVE); UGLUCOSE NEGATIVE (NEGATIVE); UROBILINOGEN,URINE 0.2 EU/dL (0.2)
[2022-10-07 05:29] LABS: BACTERIA,URINE Rare /HPF (None Seen); RBC,URINE 0-2 /HPF (0-2); SQUAMOUS EPITHELIAL CELL,UR Moderate /HPF (None Seen); WBC,URINE 0-2 /HPF (0-3)
[2022-10-07 05:36] LABS: CALCIUM, SERUM 9.5 mg/dL (8.5-10.1); CARBON DIOXIDE 24 mmol/L (21-32); CHLORIDE 103 mmol/L (98-107); CREATININE 1.3 mg/dL (0.6-1.3); GLUCOSE 104 mg/dL (74-106); POTASSIUM 4.1 mmol/L (3.5-5.1); SODIUM SERUM 137 mmol/L (136-145); UREA NITROGEN, BLOOD 22 mg/dL (7-18)
[2022-10-07 05:40] LABS: ALANINE AMINOTRANSFERASE 89 U/L (12-78); ALBUMIN 4.1 g/dL (3.4-5.0); ALKALINE PHOSPHATASE 116 U/L (46-116); ASPARTATE AMINOTRANSFERASE 52 U/L (15-37); BILIRUBIN,DIRECT 0.3 mg/dL (0.0-0.2); TOTAL PROTEIN, SERUM 7.9 g/dL (6.4-8.2)
[2022-10-07 05:43] LABS: ACETAMINOPHEN 0 ug/ml (10-30); ALCOHOL, BLOOD < 3 mg/dL (0-0)
--- NOTE | 2022-10-07 12:28 | NUR ---
PT ACCEPTED TO [facility] UNDER DR REAGAN WILL TEXT US IN REGARD TO TRANSPORTATION
[2022-10-07 13:30] VITALS: BP 131/84
--- NOTE | 2022-10-07 14:01 | NUR ---
THE PATIENT IS DISCHARGED TO [facility] IN STABLE CONDITION AND VIA ARRANGED TRANSPO
== END 2022-10-07 14:03 | disposition home or self-care (01) ==
LOC: ER 04:08
DX: R45.851 Suicidal ideations (principal); F20.0 Paranoid schizophrenia; I10 Essential (primary) hypertension; E11.9 Type 2 diabetes mellitus without complications; G89.29 Other chronic pain; F17.200 Nicotine dependence, unspecified, uncomplicated; Z20.822 Contact with and (suspected) exposure to COVID-19; Z91.012 Allergy to eggs; Z91.018 Allergy to other foods; Z59.00 Homelessness unspecified; Z79.899 Other long term (current) drug therapy
CPT/HCPCS: 99285; 85025; 80048; 80076; 81001; 36415; 87426; 80143; 80320; 80307; C9803; G0480

== ENCOUNTER 2022-10-19 06:22 | Emergency (ER) | payer OTHER ==
[~2022-10-19] VITALS: Ht 170.2 cm; Wt 95.3 kg
--- NOTE | 2022-10-19 07:00 | NUR ---
BIBS FOR PSYCH EVALUATION. A/O X 3, ABLE TO MAKE NEEDS KNOWN, TOLERATING WELL ON ROOM AIR
[2022-10-19 08:37] LABS: BASOPHILS % (AUTO) 0.3 % (0.0-2.0); EOSINOPHILS % (AUTO) 1.3 % (0.0-6.0); HEMATOCRIT 42 % (39-51); HEMOGLOBIN 14.1 g/dL (13.5-17.5); LYMPHOCYTES % (AUTO) 23.1 % (20.0-44.0); MEAN CORPUSCULAR HGB CONC 33 g/dl (31.0-36.0); MEAN CORPUSCULAR VOLUME 82 fL (80-96); MONOCYTES # (AUTO) 0.8 K/uL (0.1-1.30); MONOCYTES % (AUTO) 9.3 % (2.0-12.0); NEUTROPHILS # (AUTO) 5.6 K/uL (1.8-8.9); PLATELET COUNT (AUTO) 212 K/uL (150-450); RED BLOOD CELL COUNT(AUTO) 5.17 MIL/uL (4.5-6.0); WHITE BLOOD COUNT (AUTO) 8.5 K/uL (4.3-11.0)
[2022-10-19 08:43] LABS: BILIRUBIN,URINE NEGATIVE (NEGATIVE); COLOR,URINE YELLOW (YELLOW); LEUKOCYTE ESTERASE ,URINE NEGATIVE (NEGATIVE); NITRITE, URINE NEGATIVE (NEGATIVE); PROTEIN,URINE NEGATIVE (NEGATIVE); UGLUCOSE NEGATIVE (NEGATIVE)
[2022-10-19 09:17] LABS: CALCIUM, SERUM 9.2 mg/dL (8.5-10.1); CARBON DIOXIDE 25 mmol/L (21-32); CHLORIDE 101 mmol/L (98-107); CREATININE 1.3 mg/dL (0.6-1.3); GLUCOSE 122 mg/dL (74-106); POTASSIUM 4.1 mmol/L (3.5-5.1); SODIUM SERUM 136 mmol/L (136-145); UREA NITROGEN, BLOOD 21 mg/dL (7-18)
[2022-10-19 09:22] LABS: BACTERIA,URINE None seen /HPF (None Seen); RBC,URINE NONE SEEN /HPF (0-2); SQUAMOUS EPITHELIAL CELL,UR Rare /HPF (None Seen); WBC,URINE 0-2 /HPF (0-3)
[2022-10-19 09:36] LABS: ALANINE AMINOTRANSFERASE 40 U/L (12-78); ALBUMIN 3.9 g/dL (3.4-5.0); ALCOHOL, BLOOD < 3 mg/dL (0-0); ALKALINE PHOSPHATASE 110 U/L (46-116); ASPARTATE AMINOTRANSFERASE 29 U/L (15-37); BILIRUBIN,DIRECT 0.2 mg/dL (0.0-0.2); BILIRUBIN,TOTAL 0.7 mg/dL (0.2-1.0); TOTAL PROTEIN, SERUM 7.7 g/dL (6.4-8.2)
[2022-10-19 09:38] LABS: ACETAMINOPHEN 0 ug/ml (10-30)
--- NOTE | 2022-10-19 10:39 | NUR ---
FAXED CLINICALS TO [facility].
--- NOTE | 2022-10-19 12:01 | NUR ---
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
[2022-10-19 13:30] VITALS: BP 122/70
== END 2022-10-19 12:18 ==
LOC: ER 06:36
DX: R45.851 Suicidal ideations (principal); F20.0 Paranoid schizophrenia; I10 Essential (primary) hypertension; E11.9 Type 2 diabetes mellitus without complications; M54.50 Low back pain, unspecified; G89.29 Other chronic pain; F17.200 Nicotine dependence, unspecified, uncomplicated; Z20.822 Contact with and (suspected) exposure to COVID-19; Z79.899 Other long term (current) drug therapy; Z79.82 Long term (current) use of aspirin; Z59.00 Homelessness unspecified; Z91.012 Allergy to eggs
CPT/HCPCS: 99285; 85025; 80048; 80076; 81001; 36415; 87426; 80143; 80320; 80307; C9803; G0480

== ENCOUNTER 2022-10-20 23:10 | Emergency (ER) | payer OTHER ==
[~2022-10-20] VITALS: Ht 170.2 cm; Wt 95.3 kg
--- NOTE | 2022-10-20 23:40 | NUR ---
[facility]out [facility] from [facility] [place] for "I lost my balance and was about to fall. low BP on site, 450ml NS given INTENSIVE CARE ANAESTHETIST. Patient feels week. AAOX4, able to make needs known. Placed comfortably in bed. Vitals checked.
--- NOTE | 2022-10-21 | NUR ---
CAME WITH IV RICARDO G18 ON RIGHT FA
--- NOTE | 2022-10-21 00:15 | NUR ---
BROUGHT TO CT DEPT
[2022-10-21 01:03] LABS: BASOPHILS # (AUTO) 0.3 K/uL (0.0-0.2); BASOPHILS % (AUTO) 3.1 % (0.0-2.0); EOSINOPHILS % (AUTO) 1.8 % (0.0-6.0); HEMATOCRIT 38 % (39-51); HEMOGLOBIN 12.7 g/dL (13.5-17.5); LYMPHOCYTES # (AUTO) 1.2 K/uL (0.8-4.8); MEAN CORPUSCULAR HGB CONC 33 g/dl (31.0-36.0); MEAN CORPUSCULAR VOLUME 83 fL (80-96); MONOCYTES # (AUTO) 0.9 K/uL (0.1-1.30); MONOCYTES % (AUTO) 10.6 % (2.0-12.0); NEUTROPHILS # (AUTO) 6.1 K/uL (1.8-8.9); NEUTROPHILS % (AUTO) 70.5 % (43.0-81.0); PLATELET COUNT (AUTO) 186 K/uL (150-450); RED BLOOD CELL COUNT(AUTO) 4.64 MIL/uL (4.5-6.0); WHITE BLOOD COUNT (AUTO) 8.7 K/uL (4.3-11.0)
[2022-10-21 01:54] LABS: CALCIUM, SERUM 9.7 mg/dL (8.5-10.1); CARBON DIOXIDE 27 mmol/L (21-32); CHLORIDE 106 mmol/L (98-107); CREATININE 1.5 mg/dL (0.6-1.3); GLUCOSE 148 mg/dL (74-106); POTASSIUM 5.6 mmol/L (3.5-5.1); SODIUM SERUM 141 mmol/L (136-145); UREA NITROGEN, BLOOD 22 mg/dL (7-18)
[2022-10-21 02:07] LABS: ALANINE AMINOTRANSFERASE 32 U/L (12-78); ALBUMIN 3.6 g/dL (3.4-5.0); ALCOHOL, BLOOD < 3 mg/dL (0-0); ALKALINE PHOSPHATASE 94 U/L (46-116); ASPARTATE AMINOTRANSFERASE 28 U/L (15-37); BILIRUBIN,DIRECT 0.2 mg/dL (0.0-0.2); BILIRUBIN,TOTAL 0.5 mg/dL (0.2-1.0); TOTAL PROTEIN, SERUM 6.9 g/dL (6.4-8.2)
[2022-10-21 02:51] LABS: BILIRUBIN,URINE NEGATIVE (NEGATIVE); COLOR,URINE YELLOW (YELLOW); LEUKOCYTE ESTERASE ,URINE NEGATIVE (NEGATIVE); NITRITE, URINE NEGATIVE (NEGATIVE); PROTEIN,URINE NEGATIVE (NEGATIVE); UGLUCOSE NEGATIVE (NEGATIVE); UROBILINOGEN,URINE 0.2 EU/dL (0.2)
[2022-10-21] MEDS ORDERED: IV NS 0.9% 1,000 ML BAG IV ONE ×2 (03:00)
--- NOTE | 2022-10-21 03:00 | NUR ---
URINE SPECIMEN SENT TO LAB
--- NOTE | 2022-10-21 07:15 | NUR ---
REPORT GIVEN TO ALISSA REYNOLDS
--- NOTE | 2022-10-21 10:33 | NUR ---
CALLED [facility] FOR TRANSPORT ETA 45 MIN PER QUIRINO.
--- NOTE | 2022-10-21 11:29 | NUR ---
[facility] unit [facility] here for transport- Report given to EMT. NO acute distress going back to [facility] Accepted by MD Carrizales
[2022-10-21 11:37] VITALS: BP 114/82
== END 2022-10-21 11:41 ==
LOC: ER 23:11
DX: I95.9 Hypotension, unspecified (principal); F19.10 Other psychoactive substance abuse, uncomplicated; I10 Essential (primary) hypertension; E11.9 Type 2 diabetes mellitus without complications; G89.29 Other chronic pain; F20.0 Paranoid schizophrenia; F17.200 Nicotine dependence, unspecified, uncomplicated; Z20.822 Contact with and (suspected) exposure to COVID-19; Z91.012 Allergy to eggs; Z91.018 Allergy to other foods; Z79.899 Other long term (current) drug therapy
CPT/HCPCS: 99285; 93005; 71045; 70450; 36415; 80307; 96360; 96361; 85025; 80048; 80076; 84132; 81003; 84484 ×2; 85730; 86850; 82962; 87426; 80143; 80320; J7030 ×2; C9803; G0480

== ENCOUNTER 2023-01-06 21:27 | Emergency (ER) | payer OTHER, MEDICAID ==
[~2023-01-06] VITALS: Ht 170.2 cm; Wt 95.3 kg
[2023-01-06 22:27] VITALS: BP 160/110; TEMP 98.3
[2023-01-06 23:09] LABS: BASOPHILS % (AUTO) 0.4 % (0.0-2.0); EOSINOPHILS % (AUTO) 0.5 % (0.0-6.0); HEMATOCRIT 38 % (39-51); HEMOGLOBIN 12.8 g/dL (13.5-17.5); LYMPHOCYTES # (AUTO) 1.6 K/uL (0.8-4.8); LYMPHOCYTES % (AUTO) 17.5 % (20.0-44.0); MEAN CORPUSCULAR HGB CONC 34 g/dl (31.0-36.0); MEAN CORPUSCULAR VOLUME 80 fL (80-96); MONOCYTES % (AUTO) 10.7 % (2.0-12.0); NEUTROPHILS # (AUTO) 6.7 K/uL (1.8-8.9); NEUTROPHILS % (AUTO) 70.9 % (43.0-81.0); PLATELET COUNT (AUTO) 201 K/uL (150-450); RED BLOOD CELL COUNT(AUTO) 4.71 MIL/uL (4.5-6.0); WHITE BLOOD COUNT (AUTO) 9.4 K/uL (4.3-11.0)
[2023-01-06 23:27] LABS: CALCIUM, SERUM 9.5 mg/dL (8.5-10.1); CARBON DIOXIDE 26 mmol/L (21-32); CHLORIDE 103 mmol/L (98-107); CREATININE 1.1 mg/dL (0.6-1.3); GLUCOSE 108 mg/dL (74-106); POTASSIUM 3.6 mmol/L (3.5-5.1); SODIUM SERUM 140 mmol/L (136-145); UREA NITROGEN, BLOOD 22 mg/dL (7-18)
[2023-01-06 23:32] LABS: ALANINE AMINOTRANSFERASE 98 U/L (12-78); ALCOHOL, BLOOD < 3 mg/dL (0-10); ALKALINE PHOSPHATASE 122 U/L (46-116); ASPARTATE AMINOTRANSFERASE 59 U/L (15-37); BILIRUBIN,DIRECT 0.3 mg/dL (0.0-0.2); BILIRUBIN,TOTAL 0.9 mg/dL (0.2-1.0); TOTAL PROTEIN, SERUM 7.9 g/dL (6.4-8.2)
--- NOTE | 2023-01-07 00:16 | NUR ---
Patient eloped from facility. ER MD notified.
== END 2023-01-07 03:04 | disposition left against medical advice (07) ==
LOC: ER 21:29
DX: R45.851 Suicidal ideations (principal); F20.0 Paranoid schizophrenia; I10 Essential (primary) hypertension; F17.210 Nicotine dependence, cigarettes, uncomplicated; E11.9 Type 2 diabetes mellitus without complications; G89.29 Other chronic pain; M54.50 Low back pain, unspecified; Z79.899 Other long term (current) drug therapy; Z79.82 Long term (current) use of aspirin; Z20.822 Contact with and (suspected) exposure to COVID-19; Z91.012 Allergy to eggs; Z91.018 Allergy to other foods
CPT/HCPCS: 99285; 99406; 85025; 80048; 80076; 36415; 87426; 80143; 80320; C9803; G0480

== ENCOUNTER 2023-01-28 08:08 | Emergency (ER) | payer OTHER ==
[~2023-01-28] VITALS: Ht 170.2 cm; Wt 104.3 kg
[2023-01-28 08:29] VITALS: BP 135/95; TEMP 98.2; O2SAT 100
--- NOTE | 2023-01-28 08:35 | NUR ---
URINE SAMPLE OBTAINED
[2023-01-28 09:14] LABS: BILIRUBIN,URINE NEGATIVE (NEGATIVE); COLOR,URINE YELLOW (YELLOW); LEUKOCYTE ESTERASE ,URINE NEGATIVE (NEGATIVE); NITRITE, URINE NEGATIVE (NEGATIVE); PROTEIN,URINE NEGATIVE (NEGATIVE); UGLUCOSE NEGATIVE (NEGATIVE)
[2023-01-28 09:15] LABS: BASOPHILS % (AUTO) 0.3 % (0.0-2.0); HEMATOCRIT 41 % (39-51); HEMOGLOBIN 13.5 g/dL (13.5-17.5); LYMPHOCYTES # (AUTO) 1.6 K/uL (0.8-4.8); LYMPHOCYTES % (AUTO) 18.8 % (20.0-44.0); MEAN CORPUSCULAR HGB CONC 33 g/dl (31.0-36.0); MEAN CORPUSCULAR VOLUME 81 fL (80-96); MONOCYTES # (AUTO) 0.7 K/uL (0.1-1.30); MONOCYTES % (AUTO) 8.4 % (2.0-12.0); NEUTROPHILS # (AUTO) 5.8 K/uL (1.8-8.9); NEUTROPHILS % (AUTO) 69.5 % (43.0-81.0); PLATELET COUNT (AUTO) 194 K/uL (150-450); RED BLOOD CELL COUNT(AUTO) 4.99 MIL/uL (4.5-6.0); WHITE BLOOD COUNT (AUTO) 8.3 K/uL (4.3-11.0)
[2023-01-28 09:48] LABS: CALCIUM, SERUM 9.6 mg/dL (8.5-10.1); CARBON DIOXIDE 24 mmol/L (21-32); CHLORIDE 104 mmol/L (98-107); CREATININE 1.2 mg/dL (0.6-1.3); GLUCOSE 108 mg/dL (74-106); POTASSIUM 4.2 mmol/L (3.5-5.1); SODIUM SERUM 138 mmol/L (136-145); UREA NITROGEN, BLOOD 21 mg/dL (7-18)
[2023-01-28 09:53] LABS: ALANINE AMINOTRANSFERASE 41 U/L (12-78); ALBUMIN 4.1 g/dL (3.4-5.0); ALKALINE PHOSPHATASE 111 U/L (46-116); ASPARTATE AMINOTRANSFERASE 33 U/L (15-37); BILIRUBIN,DIRECT 0.2 mg/dL (0.0-0.2); BILIRUBIN,TOTAL 0.8 mg/dL (0.2-1.0); TOTAL PROTEIN, SERUM 8.2 g/dL (6.4-8.2)
[2023-01-28 09:54] LABS: ALCOHOL, BLOOD < 3 mg/dL (0-10)
--- NOTE | 2023-01-28 11:09 | NUR ---
faxed pt clinicals to [facility]
--- NOTE | 2023-01-28 12:16 | NUR ---
NATH[facility] RE-FAXED TO [facility] TO [facility].
--- NOTE | 2023-01-28 13:29 | NUR ---
SW received a call from Daniel who stated that pt is accepted at [facility]. Dr. Sofie Sanchez stated that they will call for nurse report. They will coordinate transportation. This television script writer informed ER staff.
--- NOTE | 2023-01-28 13:30 | NUR ---
[facility] HAS A BED FOR PT
== END 2023-01-28 15:00 ==
LOC: ER 08:18
DX: Z04.6 Encounter for general psychiatric examination, requested by authority (principal); F19.10 Other psychoactive substance abuse, uncomplicated; I10 Essential (primary) hypertension; E11.9 Type 2 diabetes mellitus without complications; G89.29 Other chronic pain; F20.0 Paranoid schizophrenia; Z91.018 Allergy to other foods; Z91.012 Allergy to eggs; Z79.899 Other long term (current) drug therapy; Z20.822 Contact with and (suspected) exposure to COVID-19
CPT/HCPCS: 99285; 85025; 80048; 80076; 81003; 36415; 87426; 80143; 80320; 80307; A6403; C9803; G0480

== ENCOUNTER 2023-03-08 16:31 | Emergency (ER) | payer MEDICAID, OTHER ==
[~2023-03-08] VITALS: Ht 170.2 cm; Wt 99.3 kg
[2023-03-08] MEDS ORDERED: KETOROLAC TROMETHAMINE INJ 30 MG/ML VIAL ONE (17:29)
[2023-03-08] MEDS ORDERED: HYDROCODONE/APAP 5/325MG TABLET ONE (17:29)
[2023-03-08] MEDS ORDERED: KETOROLAC TROMETHAMINE INJ 60 MG/2 ML VIAL IM ONE (17:30)
[2023-03-08] MEDS ORDERED: HYDROCODONE/APAP 5/325MG TABLET PO ONE (17:30)
[2023-03-08 17:47] VITALS: BP 134/88; TEMP 98.3; O2SAT 97
== END 2023-03-08 17:48 | disposition home or self-care (01) ==
LOC: ER 16:33
DX: G89.29 Other chronic pain (principal); M54.50 Low back pain, unspecified; I10 Essential (primary) hypertension; E11.9 Type 2 diabetes mellitus without complications; F20.0 Paranoid schizophrenia; F17.200 Nicotine dependence, unspecified, uncomplicated; Z91.012 Allergy to eggs; Z91.018 Allergy to other foods; Z79.899 Other long term (current) drug therapy
CPT/HCPCS: 99283; 96372; J1885

== ENCOUNTER 2023-03-10 15:34 | Emergency (ER) | payer OTHER ==
[~2023-03-10] VITALS: Ht 170.2 cm; Wt 94.8 kg
[2023-03-10 20:10] VITALS: BP 143/91; TEMP 98.1; O2SAT 98
[2023-03-10] MEDS ORDERED: KETOROLAC TROMETHAMINE INJ 30 MG/ML VIAL ONE (20:15)
[2023-03-10] MEDS ORDERED: HYDROCODONE/APAP 5/325MG TABLET ONE (20:15)
[2023-03-10] MEDS ORDERED: HYDROCODONE/APAP 5/325MG TABLET PO ONE (20:30)
[2023-03-10] MEDS ORDERED: PRED20TA PO (20:30)
[2023-03-10] MEDS ORDERED: KETOROLAC TROMETHAMINE INJ 60 MG/2 ML VIAL IM ONE (20:30)
[2023-03-10] MEDS ORDERED: KETO10TA2 PO (20:30)
[2023-03-10] MEDS ORDERED: CYCL10TA9 PO (20:32)
[2023-03-11] MEDS ORDERED: OXYC5CAP18 PO (08:28)
== END 2023-03-10 20:38 | disposition home or self-care (01) ==
LOC: ER 15:36
DX: M54.50 Low back pain, unspecified (principal); F20.9 Schizophrenia, unspecified; I10 Essential (primary) hypertension; E11.9 Type 2 diabetes mellitus without complications; F17.200 Nicotine dependence, unspecified, uncomplicated; Z79.82 Long term (current) use of aspirin; Z79.899 Other long term (current) drug therapy; Z91.018 Allergy to other foods
CPT/HCPCS: 99283; 96372; J1885

== ENCOUNTER 2023-03-11 07:43 | Emergency (ER) | payer OTHER ==
[~2023-03-11] VITALS: Ht 170.2 cm; Wt 94.3 kg
[~2023-03-11 07:43] MED LIST changes: +CYCL10TA9 PO; +KETO10TA2 PO
[2023-03-11] MEDS ORDERED: OXYC5CAP18 PO (08:28)
[2023-03-11] MEDS ORDERED: HYDROCODONE/APAP 5/325MG TABLET ONE (08:38)
[2023-03-11 08:42] VITALS: BP 134/81; TEMP 97.9; O2SAT 98
[2023-03-11] MEDS ORDERED: HYDROCODONE/APAP 5/325MG TABLET PO ONE (09:00)
== END 2023-03-11 08:43 | disposition home or self-care (01) ==
LOC: ER 07:43
DX: M54.9 Dorsalgia, unspecified (principal); G89.29 Other chronic pain; Z76.0 Encounter for issue of repeat prescription; I10 Essential (primary) hypertension; F20.9 Schizophrenia, unspecified; E11.9 Type 2 diabetes mellitus without complications; F17.200 Nicotine dependence, unspecified, uncomplicated; Z79.899 Other long term (current) drug therapy; Z79.82 Long term (current) use of aspirin; Z98.890 Other specified postprocedural states; Z88.1 Allergy status to other antibiotic agents

== ENCOUNTER 2023-04-01 20:37 | Emergency (ER) | payer OTHER ==
[~2023-04-01] VITALS: Ht 170.2 cm; Wt 90.7 kg
[~2023-04-01 20:37] MED LIST changes: +OXYC5CAP18 PO
[2023-04-01 22:52] LABS: BASOPHILS # (AUTO) 0.1 K/uL (0.0-0.2); BASOPHILS % (AUTO) 1.8 % (0.0-2.0); EOSINOPHILS # (AUTO) 0.1 K/uL (0.0-0.7); EOSINOPHILS % (AUTO) 2.1 % (0.0-6.0); HEMATOCRIT 39 % (39-51); HEMOGLOBIN 12.9 g/dL (13.5-17.5); LYMPHOCYTES # (AUTO) 1.1 K/uL (0.8-4.8); LYMPHOCYTES % (AUTO) 17.7 % (20.0-44.0); MEAN CORPUSCULAR HEMOGLOBIN 27 PG (26.0-33.0); MEAN CORPUSCULAR HGB CONC 33 g/dl (31.0-36.0); MEAN CORPUSCULAR VOLUME 81 fL (80-96); MONOCYTES # (AUTO) 0.5 K/uL (0.1-1.30); MONOCYTES % (AUTO) 7.5 % (2.0-12.0); NEUTROPHILS # (AUTO) 4.5 K/uL (1.8-8.9); NEUTROPHILS % (AUTO) 70.9 % (43.0-81.0); PLATELET COUNT (AUTO) 171 K/uL (150-450); RED BLOOD CELL COUNT(AUTO) 4.81 MIL/uL (4.5-6.0); RED CELL DISTRIBUTION WIDTH 16.4 % (11.5-15.0); WHITE BLOOD COUNT (AUTO) 6.3 K/uL (4.3-11.0)
[2023-04-01] MEDS ORDERED: ASPIRIN 325 MG TABLET PO ONE (23:00)
[2023-04-01 23:15] LABS: CALCIUM, SERUM 9.6 mg/dL (8.5-10.1); CARBON DIOXIDE 24 mmol/L (21-32); CHLORIDE 105 mmol/L (98-107); CREATININE 1.3 mg/dL (0.6-1.3); GLUCOSE 123 mg/dL (74-106); POTASSIUM 3.3 mmol/L (3.5-5.1); SODIUM SERUM 137 mmol/L (136-145); UREA NITROGEN, BLOOD 17 mg/dL (7-18)
[2023-04-02] MEDS ORDERED: ASPIRIN 325 MG TABLET ONE (01:20)
[2023-04-02] MEDS ORDERED: LISI20TA30 PO (01:57)
[2023-04-02] MEDS ORDERED: ATEN25TA PO (01:57)
[2023-04-02 02:04] VITALS: BP 159/90; TEMP 98.5; O2SAT 98
== END 2023-04-02 02:04 | disposition home or self-care (01) ==
LOC: ER 20:42
DX: R07.9 Chest pain, unspecified (principal); F15.10 Other stimulant abuse, uncomplicated; I10 Essential (primary) hypertension; E11.9 Type 2 diabetes mellitus without complications; F20.0 Paranoid schizophrenia; G89.29 Other chronic pain; F17.200 Nicotine dependence, unspecified, uncomplicated; Z91.012 Allergy to eggs; Z91.018 Allergy to other foods; Z79.899 Other long term (current) drug therapy
CPT/HCPCS: 36415; 71045-TC; 80048-TC; 84484-TC; 85025-TC

== ENCOUNTER 2023-04-03 07:21 | Emergency (ER) | payer OTHER ==
[~2023-04-03] VITALS: Ht 170.2 cm; Wt 90.7 kg
[2023-04-03] MEDS ORDERED: ASPIRIN 325 MG TABLET ONE (07:49)
[2023-04-03] MEDS ORDERED: ASPIRIN 325 MG TABLET PO ONE (08:00)
[2023-04-03 08:44] LABS: BASOPHILS % (AUTO) 0.2 % (0.0-2.0); EOSINOPHILS # (AUTO) 0.1 K/uL (0.0-0.7); EOSINOPHILS % (AUTO) 1.1 % (0.0-6.0); HEMATOCRIT 42 % (39-51); HEMOGLOBIN 13.7 g/dL (13.5-17.5); LYMPHOCYTES # (AUTO) 1.8 K/uL (0.8-4.8); LYMPHOCYTES % (AUTO) 24.8 % (20.0-44.0); MEAN CORPUSCULAR HEMOGLOBIN 27 PG (26.0-33.0); MEAN CORPUSCULAR HGB CONC 33 g/dl (31.0-36.0); MEAN CORPUSCULAR VOLUME 83 fL (80-96); MONOCYTES # (AUTO) 0.7 K/uL (0.1-1.30); MONOCYTES % (AUTO) 9.2 % (2.0-12.0); NEUTROPHILS # (AUTO) 4.8 K/uL (1.8-8.9); NEUTROPHILS % (AUTO) 64.7 % (43.0-81.0); PLATELET COUNT (AUTO) 175 K/uL (150-450); RED BLOOD CELL COUNT(AUTO) 5.09 MIL/uL (4.5-6.0); WHITE BLOOD COUNT (AUTO) 7.5 K/uL (4.3-11.0)
[2023-04-03 09:01] LABS: ALBUMIN 3.6 g/dL (3.4-5.0); BILIRUBIN,DIRECT 0.2 mg/dL (0.0-0.2); BILIRUBIN,TOTAL 0.5 mg/dL (0.2-1.0); CALCIUM, SERUM 9.4 mg/dL (8.5-10.1); CREATININE 1.4 mg/dL (0.6-1.3); POTASSIUM 4.2 mmol/L (3.5-5.1); TOTAL PROTEIN, SERUM 7.5 g/dL (6.4-8.2)
[2023-04-03 09:07] VITALS: BP 98/76; TEMP 98.5; O2SAT 98
== END 2023-04-03 09:09 | disposition left against medical advice (07) ==
LOC: ER 07:25
DX: R00.2 Palpitations (principal); R00.0 Tachycardia, unspecified; I10 Essential (primary) hypertension; E11.9 Type 2 diabetes mellitus without complications; F20.0 Paranoid schizophrenia; G89.29 Other chronic pain; F17.200 Nicotine dependence, unspecified, uncomplicated; Z91.012 Allergy to eggs; Z91.018 Allergy to other foods; Z79.899 Other long term (current) drug therapy
CPT/HCPCS: 36415; 80048-TC; 80076-TC; 84484-TC; 85025-TC

== ENCOUNTER 2023-04-03 11:27 | Inpatient (IN) | payer OTHER ==
[2023-04-03] MEDS ORDERED: MAGNESIUM HYDROXIDE 30 ML UDC PO PRN (15:30)
[2023-04-03] MEDS ORDERED: ACETAMINOPHEN ES 500 MG TABLET PO PRN (15:30)
[2023-04-03] MEDS: ASPIRIN 81 MG PO SCH (15:30)
[2023-04-03] MEDS ORDERED: IBUPROFEN 200 MG TABLET PO PRN (15:30)
[2023-04-03] MEDS: ATENOLOL 25 MG PO SCH (15:30)
[2023-04-03] MEDS ORDERED: ZOLPIDEM TARTRATE 10 MG TABLET PO PRN (15:30)
[2023-04-03] MEDS: LISINOPRIL 20 MG PO SCH (15:30)
[2023-04-03] MEDS ORDERED: LORAZEPAM 1 MG TABLET FOR AGITATION PO PRN (15:30)
[2023-04-03] MEDS ORDERED: MAG HYDROX/AL HYDROX/SIMETH 30 ML UDC PO PRN (15:30)
[2023-04-03] MEDS: METFORMIN 500 MG TABLET PO SCH (17:00)
[2023-04-04 06:12] VITALS: BP 100/55; TEMP 97.8; O2SAT 98
[2023-04-04 08:00] VITALS: BP 119/76; TEMP 98.4; O2SAT 96
[2023-04-04] MEDS: METFORMIN 500 MG TABLET PO SCH ×2 (09:04→16:06)
[2023-04-04] MEDS: ASPIRIN 81 MG PO SCH (14:48)
[2023-04-04] MEDS: LISINOPRIL 20 MG PO SCH (14:48)
[2023-04-04] MEDS: ATENOLOL 25 MG PO SCH (14:48)
[2023-04-04 16:00] VITALS: BP 118/85; TEMP 98.2; O2SAT 96
[2023-04-04 20:00] VITALS: BP 114/74; TEMP 97.7; O2SAT 99
[2023-04-05 08:31] VITALS: BP_SYST 112; BP_SYST 140; BP_DIAS 79; TEMP 97.9; TEMP 98.4; O2SAT 99
[2023-04-05] MEDS: METFORMIN 500 MG TABLET PO SCH ×2 (08:57→16:15)
[2023-04-05] MEDS: ASPIRIN 81 MG PO SCH (15:45)
[2023-04-05] MEDS: LISINOPRIL 20 MG PO SCH (15:46)
[2023-04-05] MEDS: ATENOLOL 25 MG PO SCH (15:46)
[2023-04-05 16:10] VITALS: BP 151/93; TEMP 98.1; O2SAT 99
[2023-04-05 21:21] VITALS: BP 162/92; TEMP 98.2; O2SAT 100
[2023-04-06] MEDS: METFORMIN 500 MG TABLET PO SCH ×3 (08:20→17:04)
[2023-04-06] MEDS: HOME MED MISCELLANEOUS PO SCH ×3 (09:38)
[2023-04-07 08:00] VITALS: BP 106/75; TEMP 97.9; O2SAT 96
[2023-04-07] MEDS: HOME MED MISCELLANEOUS PO SCH ×3 (09:29)
[2023-04-07] MEDS: METFORMIN 500 MG TABLET PO SCH ×2 (09:31→16:07)
[2023-04-07 16:00] VITALS: BP 116/79; TEMP 98.1; O2SAT 96
[2023-04-08] MEDS: METFORMIN 500 MG TABLET PO SCH (09:00)
[2023-04-08] MEDS: HOME MED MISCELLANEOUS PO SCH ×3 (09:00)
[2023-04-09] MEDS ORDERED: LORAZEPAM 1 MG TABLET FOR AGITATION PO PRN (13:00)
[2023-04-09] MEDS ORDERED: ZOLPIDEM TARTRATE 10 MG TABLET PO PRN (13:00)
[2023-04-17] MEDS ORDERED: ZOLPIDEM TARTRATE 10 MG TABLET PO PRN (13:00)
[2023-04-17] MEDS ORDERED: LORAZEPAM 1 MG TABLET FOR AGITATION PO PRN (13:00)
[2023-04-24] MEDS ORDERED: ZOLPIDEM TARTRATE 10 MG TABLET PO PRN (13:00)
[2023-04-24] MEDS ORDERED: LORAZEPAM 1 MG TABLET FOR AGITATION PO PRN (13:00)
[2023-05-01] MEDS ORDERED: ZOLPIDEM TARTRATE 10 MG TABLET PO PRN (13:00)
[2023-05-01] MEDS ORDERED: LORAZEPAM 1 MG TABLET FOR AGITATION PO PRN (13:00)
[2023-05-08] MEDS ORDERED: ZOLPIDEM TARTRATE 10 MG TABLET PO PRN (13:00)
[2023-05-08] MEDS ORDERED: LORAZEPAM 1 MG TABLET FOR AGITATION PO PRN (13:00)
[2023-05-15] MEDS ORDERED: LORAZEPAM 1 MG TABLET FOR AGITATION PO PRN (13:00)
[2023-05-15] MEDS ORDERED: ZOLPIDEM TARTRATE 10 MG TABLET PO PRN (13:00)
[2023-05-22] MEDS ORDERED: ZOLPIDEM TARTRATE 10 MG TABLET PO PRN (13:00)
[2023-05-22] MEDS ORDERED: LORAZEPAM 1 MG TABLET FOR AGITATION PO PRN (15:30)
[2023-05-29] MEDS ORDERED: ZOLPIDEM TARTRATE 10 MG TABLET PO PRN (13:00)
[2023-05-29] MEDS ORDERED: LORAZEPAM 1 MG TABLET FOR AGITATION PO PRN (13:00)
[2023-06-03] MEDS ORDERED: ZOLPIDEM TARTRATE 10 MG TABLET PO PRN (13:00)
[2023-06-03] MEDS ORDERED: LORAZEPAM 1 MG TABLET FOR AGITATION PO PRN (13:00)
== END 2023-04-08 12:25 | disposition left against medical advice (07) | DRG 951 ==
LOC: GPSOV 14:40 → MED 21:21
PROVIDERS: ADMIT Psychiatry & Neurology Psychiatry; ATTEND Psychiatry & Neurology Psychiatry
DX: Z00.6 Encounter for examination for normal comparison and control in clinical research program (principal); F20.0 Paranoid schizophrenia
CPT/HCPCS: G0378

== ENCOUNTER 2023-04-21 08:09 | Emergency (ER) | payer MEDICAID, OTHER ==
[~2023-04-21] VITALS: Ht 170.2 cm; Wt 93.0 kg
[2023-04-21 09:22] LABS: BASOPHILS % (AUTO) 0.4 % (0.0-2.0); EOSINOPHILS % (AUTO) 0.8 % (0.0-6.0); HEMATOCRIT 42 % (39-51); HEMOGLOBIN 13.9 g/dL (13.5-17.5); LYMPHOCYTES # (AUTO) 1.2 K/uL (0.8-4.8); LYMPHOCYTES % (AUTO) 19.7 % (20.0-44.0); MEAN CORPUSCULAR HEMOGLOBIN 27 PG (26.0-33.0); MEAN CORPUSCULAR HGB CONC 33 g/dl (31.0-36.0); MEAN CORPUSCULAR VOLUME 83 fL (80-96); MONOCYTES # (AUTO) 0.6 K/uL (0.1-1.30); MONOCYTES % (AUTO) 9.2 % (2.0-12.0); NEUTROPHILS # (AUTO) 4.2 K/uL (1.8-8.9); NEUTROPHILS % (AUTO) 69.9 % (43.0-81.0); PLATELET COUNT (AUTO) 153 K/uL (150-450); RED CELL DISTRIBUTION WIDTH 17.1 % (11.5-15.0)
[2023-04-21 09:50] LABS: ALANINE AMINOTRANSFERASE 27 U/L (12-78); ALBUMIN 3.9 g/dL (3.4-5.0); ALKALINE PHOSPHATASE 115 U/L (46-116); ASPARTATE AMINOTRANSFERASE 31 U/L (15-37); BILIRUBIN,DIRECT 0.5 mg/dL (0.0-0.2); BILIRUBIN,TOTAL 1.4 mg/dL (0.2-1.0); CALCIUM, SERUM 9.2 mg/dL (8.5-10.1); CARBON DIOXIDE 22 mmol/L (21-32); CHLORIDE 101 mmol/L (98-107); GLUCOSE 87 mg/dL (74-106); POTASSIUM 3.3 mmol/L (3.5-5.1); SODIUM SERUM 135 mmol/L (136-145); TOTAL PROTEIN, SERUM 7.9 g/dL (6.4-8.2); UREA NITROGEN, BLOOD 11 mg/dL (7-18)
[2023-04-21 11:44] VITALS: BP 172/101; TEMP 97.9; O2SAT 95
== END 2023-04-21 12:39 | disposition home or self-care (01) ==
LOC: ER 08:09
DX: R07.89 Other chest pain (principal); F20.9 Schizophrenia, unspecified; I10 Essential (primary) hypertension; E11.9 Type 2 diabetes mellitus without complications; M54.50 Low back pain, unspecified; G89.29 Other chronic pain; F17.200 Nicotine dependence, unspecified, uncomplicated; Z98.890 Other specified postprocedural states; Z79.899 Other long term (current) drug therapy; Z79.82 Long term (current) use of aspirin; Z91.018 Allergy to other foods
CPT/HCPCS: 36415; 71045-TC; 80048-TC; 80076-TC; 84484-TC; 85025-TC

== ENCOUNTER 2023-04-28 06:13 | Emergency (ER) | payer OTHER ==
[~2023-04-28] VITALS: Ht 170.2 cm; Wt 90.7 kg
[2023-04-28 07:26] LABS: BASOPHILS % (AUTO) 0.3 % (0.0-2.0); EOSINOPHILS # (AUTO) 0.2 K/uL (0.0-0.7); EOSINOPHILS % (AUTO) 2.4 % (0.0-6.0); HEMATOCRIT 41 % (39-51); HEMOGLOBIN 13.9 g/dL (13.5-17.5); LYMPHOCYTES # (AUTO) 1.8 K/uL (0.8-4.8); LYMPHOCYTES % (AUTO) 24.8 % (20.0-44.0); MEAN CORPUSCULAR HEMOGLOBIN 27 PG (26.0-33.0); MEAN CORPUSCULAR HGB CONC 34 g/dl (31.0-36.0); MEAN CORPUSCULAR VOLUME 81 fL (80-96); MONOCYTES # (AUTO) 0.7 K/uL (0.1-1.30); MONOCYTES % (AUTO) 9.3 % (2.0-12.0); NEUTROPHILS # (AUTO) 4.7 K/uL (1.8-8.9); NEUTROPHILS % (AUTO) 63.2 % (43.0-81.0); PLATELET COUNT (AUTO) 207 K/uL (150-450); RED CELL DISTRIBUTION WIDTH 16.7 % (11.5-15.0); WHITE BLOOD COUNT (AUTO) 7.4 K/uL (4.3-11.0)
[2023-04-28 07:46] LABS: CALCIUM, SERUM 9.4 mg/dL (8.5-10.1); CARBON DIOXIDE 30 mmol/L (21-32); CHLORIDE 102 mmol/L (98-107); CREATININE 1.3 mg/dL (0.6-1.3); GLUCOSE 97 mg/dL (74-106); POTASSIUM 3.2 mmol/L (3.5-5.1); SODIUM SERUM 140 mmol/L (136-145); UREA NITROGEN, BLOOD 16 mg/dL (7-18)
[2023-04-28] MEDS ORDERED: METF-442 PO (08:18)
[2023-04-28] MEDS ORDERED: QUET100T PO (08:18)
[2023-04-28] MEDS ORDERED: ATEN25TA PO (08:18)
[2023-04-28] MEDS ORDERED: LISI20TA30 PO (08:18)
[2023-04-28] MEDS ORDERED: ASPI-1169 PO (08:18)
[2023-04-28 10:48] VITALS: BP 133/85; TEMP 98.2; O2SAT 99
== END 2023-04-28 10:48 | disposition home or self-care (01) ==
LOC: ER 06:13
DX: R07.89 Other chest pain (principal); I10 Essential (primary) hypertension; F15.10 Other stimulant abuse, uncomplicated; M54.50 Low back pain, unspecified; G89.29 Other chronic pain; F20.9 Schizophrenia, unspecified; E11.9 Type 2 diabetes mellitus without complications; F17.200 Nicotine dependence, unspecified, uncomplicated; Z98.890 Other specified postprocedural states; Z79.899 Other long term (current) drug therapy; Z79.82 Long term (current) use of aspirin; Z91.018 Allergy to other foods
CPT/HCPCS: 36415; 71045-TC; 80048-TC; 84484-TC; 85025-TC

== ENCOUNTER 2023-04-30 03:44 | Emergency (ER) | payer OTHER ==
[~2023-04-30] VITALS: Ht 172.7 cm; Wt 79.4 kg
[~2023-04-30 03:44] MED LIST changes: -ASPI-1420 MT; -ATEN25TA MT; -CARI350T PO; -CYCL10TA9 PO; -HYDR-3976 PO; -HYDR-3980 PO; -HYDR-4303 PO; -IBUP-1955 PO; -IBUP-1957 PO; -KETO10TA2 PO; -LISI20TA30 MT; +METF-442 PO; -OXYC-128 PO; -OXYC5CAP18 PO; -PRED20TA PO; +QUET100T PO
[2023-04-30 06:38] VITALS: TEMP 98.9
[2023-04-30 07:13] LABS: APPEARANCE,URINE CLEAR (CLEAR); BILIRUBIN,URINE 1+ (NEGATIVE); BLOOD, URINE NEGATIVE Ery/uL (NEGATIVE); COLOR,URINE YELLOW (YELLOW); KETONES,URINE NEGATIVE (NEGATIVE); LEUKOCYTE ESTERASE ,URINE NEGATIVE (NEGATIVE); NITRITE, URINE NEGATIVE (NEGATIVE); PROTEIN,URINE NEGATIVE (NEGATIVE); UGLUCOSE NEGATIVE (NEGATIVE)
[2023-04-30 07:24] LABS: BARBITURATE, URINE NEGATIVE (NEGATIVE); BENZODIAZEPINE, URINE NEGATIVE (NEGATIVE); OPIATE, URINE NEGATIVE (NEGATIVE); PHENCYCLIDINE SCREEN,URINE NEGATIVE (NEGATIVE)
[2023-04-30 07:25] LABS: AMPHETAMINE, URINE POSITIVE (NEGATIVE); CANNABINOID, URINE POSITIVE (NEGATIVE); COCCAINE, URINE POSITIVE (NEGATIVE)
[2023-04-30 07:32] LABS: BASOPHILS % (AUTO) 0.3 % (0.0-2.0); EOSINOPHILS # (AUTO) 0.2 K/uL (0.0-0.7); EOSINOPHILS % (AUTO) 3.4 % (0.0-6.0); HEMATOCRIT 41 % (39-51); HEMOGLOBIN 13.8 g/dL (13.5-17.5); LYMPHOCYTES # (AUTO) 1.4 K/uL (0.8-4.8); LYMPHOCYTES % (AUTO) 24.1 % (20.0-44.0); MEAN CORPUSCULAR HEMOGLOBIN 27 PG (26.0-33.0); MEAN CORPUSCULAR HGB CONC 33 g/dl (31.0-36.0); MEAN CORPUSCULAR VOLUME 82 fL (80-96); MONOCYTES # (AUTO) 0.5 K/uL (0.1-1.30); MONOCYTES % (AUTO) 8.8 % (2.0-12.0); NEUTROPHILS # (AUTO) 3.8 K/uL (1.8-8.9); NEUTROPHILS % (AUTO) 63.4 % (43.0-81.0); PLATELET COUNT (AUTO) 187 K/uL (150-450); RED BLOOD CELL COUNT(AUTO) 5.03 MIL/uL (4.5-6.0); RED CELL DISTRIBUTION WIDTH 16.5 % (11.5-15.0)
[2023-04-30 07:56] LABS: ALANINE AMINOTRANSFERASE 29 U/L (12-78); ALCOHOL, BLOOD < 3 mg/dL (0-10); ALKALINE PHOSPHATASE 118 U/L (46-116); ASPARTATE AMINOTRANSFERASE 27 U/L (15-37); BILIRUBIN,DIRECT 0.5 mg/dL (0.0-0.2); BILIRUBIN,TOTAL 1.3 mg/dL (0.2-1.0); CALCIUM, SERUM 9.5 mg/dL (8.5-10.1); CARBON DIOXIDE 28 mmol/L (21-32); CHLORIDE 99 mmol/L (98-107); CREATININE 1.1 mg/dL (0.6-1.3); GLUCOSE 88 mg/dL (74-106); POTASSIUM 3.1 mmol/L (3.5-5.1); SALICYLATE 3.8 mg/dL (2.8-20.0); SODIUM SERUM 136 mmol/L (136-145); TOTAL PROTEIN, SERUM 7.9 g/dL (6.4-8.2); UREA NITROGEN, BLOOD 13 mg/dL (7-18)
[2023-04-30 07:58] LABS: ACETAMINOPHEN <10 ug/ml (10-30)
[2023-04-30 12:04] VITALS: BP 136/84; O2SAT 98
== END 2023-04-30 12:04 ==
LOC: ER 03:51
DX: F32.A Depression, unspecified (principal); I10 Essential (primary) hypertension; E11.9 Type 2 diabetes mellitus without complications; G89.29 Other chronic pain; F20.0 Paranoid schizophrenia; F17.200 Nicotine dependence, unspecified, uncomplicated; Z91.012 Allergy to eggs; Z91.018 Allergy to other foods; Z79.84 Long term (current) use of oral hypoglycemic drugs; Z79.899 Other long term (current) drug therapy; Z20.822 Contact with and (suspected) exposure to COVID-19
CPT/HCPCS: 99285; 85025; 80048; 80076; 81003; 36415; 87426; 80143; 80320; 80307; C9803; G0480

== ENCOUNTER 2023-05-08 17:19 | Emergency (ER) | payer OTHER ==
[~2023-05-08] VITALS: Ht 170.2 cm; Wt 86.6 kg
[2023-05-08 19:26] LABS: BASOPHILS % (AUTO) 0.6 % (0.0-2.0); EOSINOPHILS # (AUTO) 0.1 K/uL (0.0-0.7); EOSINOPHILS % (AUTO) 1.3 % (0.0-6.0); HEMATOCRIT 43 % (39-51); HEMOGLOBIN 14.5 g/dL (13.5-17.5); LYMPHOCYTES # (AUTO) 1.8 K/uL (0.8-4.8); LYMPHOCYTES % (AUTO) 28.2 % (20.0-44.0); MEAN CORPUSCULAR HEMOGLOBIN 27 PG (26.0-33.0); MEAN CORPUSCULAR HGB CONC 34 g/dl (31.0-36.0); MEAN CORPUSCULAR VOLUME 81 fL (80-96); MONOCYTES # (AUTO) 0.5 K/uL (0.1-1.30); MONOCYTES % (AUTO) 8.1 % (2.0-12.0); NEUTROPHILS # (AUTO) 3.8 K/uL (1.8-8.9); NEUTROPHILS % (AUTO) 61.8 % (43.0-81.0); PLATELET COUNT (AUTO) 222 K/uL (150-450); RED BLOOD CELL COUNT(AUTO) 5.33 MIL/uL (4.5-6.0); RED CELL DISTRIBUTION WIDTH 15.8 % (11.5-15.0); WHITE BLOOD COUNT (AUTO) 6.2 K/uL (4.3-11.0)
[2023-05-08 19:31] LABS: APPEARANCE,URINE CLEAR (CLEAR); BILIRUBIN,URINE 1+ (NEGATIVE); BLOOD, URINE NEGATIVE Ery/uL (NEGATIVE); COLOR,URINE YELLOW (YELLOW); KETONES,URINE 1+ mg/dL (NEGATIVE); LEUKOCYTE ESTERASE ,URINE NEGATIVE (NEGATIVE); NITRITE, URINE NEGATIVE (NEGATIVE); PROTEIN,URINE NEGATIVE (NEGATIVE); UGLUCOSE NEGATIVE (NEGATIVE)
[2023-05-08 19:54] LABS: CALCIUM, SERUM 9.6 mg/dL (8.5-10.1); CARBON DIOXIDE 24 mmol/L (21-32); CHLORIDE 98 mmol/L (98-107); CREATININE 1.1 mg/dL (0.6-1.3); GLUCOSE 75 mg/dL (74-106); POTASSIUM 3.6 mmol/L (3.5-5.1); SODIUM SERUM 134 mmol/L (136-145); UREA NITROGEN, BLOOD 17 mg/dL (7-18)
[2023-05-08 19:58] LABS: BARBITURATE, URINE NEGATIVE (NEGATIVE); BENZODIAZEPINE, URINE NEGATIVE (NEGATIVE); COCCAINE, URINE NEGATIVE (NEGATIVE); OPIATE, URINE NEGATIVE (NEGATIVE); PHENCYCLIDINE SCREEN,URINE NEGATIVE (NEGATIVE)
[2023-05-08 20:01] LABS: ALANINE AMINOTRANSFERASE 28 U/L (12-78); ALBUMIN 4.1 g/dL (3.4-5.0); ALCOHOL, BLOOD < 3 mg/dL (0-10); ALKALINE PHOSPHATASE 110 U/L (46-116); ASPARTATE AMINOTRANSFERASE 31 U/L (15-37); BILIRUBIN,DIRECT 0.5 mg/dL (0.0-0.2); BILIRUBIN,TOTAL 1.7 mg/dL (0.2-1.0); TOTAL PROTEIN, SERUM 7.9 g/dL (6.4-8.2)
[2023-05-08 20:05] LABS: AMPHETAMINE, URINE POSITIVE (NEGATIVE); CANNABINOID, URINE POSITIVE (NEGATIVE)
[2023-05-08 20:06] LABS: ACETAMINOPHEN 0 ug/ml (10-30); SALICYLATE 1.8 mg/dL (2.8-20.0)
[2023-05-10 13:32] VITALS: BP 132/70; TEMP 98; O2SAT 100
== END 2023-05-10 13:32 | disposition home or self-care (01) ==
LOC: ER 17:29
DX: F32.A Depression, unspecified (principal); F15.10 Other stimulant abuse, uncomplicated; F20.9 Schizophrenia, unspecified; I10 Essential (primary) hypertension; E11.9 Type 2 diabetes mellitus without complications; Z20.822 Contact with and (suspected) exposure to COVID-19; Z79.899 Other long term (current) drug therapy; Z79.82 Long term (current) use of aspirin; Z91.018 Allergy to other foods
CPT/HCPCS: 99283; 85025; 80048; 80076; 81003; 36415; 87426; 80143; 80320; 80307; C9803; G0480

== ENCOUNTER 2023-05-11 08:48 | Emergency (ER) | payer OTHER | END 2023-05-11 09:28 | disposition left against medical advice (07) | LOC: ER 08:50 | DX: R52 Pain, unspecified (principal); Z53.21 Procedure and treatment not carried out due to patient leaving prior to being seen by health care provider ==

== ENCOUNTER 2023-06-06 07:53 | Emergency (ER) | payer OTHER ==
[~2023-06-06] VITALS: Ht 170.2 cm; Wt 83.5 kg
[2023-06-06 09:05] LABS: BASOPHILS # (AUTO) 0.1 K/uL (0.0-0.2); BASOPHILS % (AUTO) 1.2 % (0.0-2.0); EOSINOPHILS # (AUTO) 0.1 K/uL (0.0-0.7); EOSINOPHILS % (AUTO) 0.8 % (0.0-6.0); HEMATOCRIT 39 % (39-51); HEMOGLOBIN 13.2 g/dL (13.5-17.5); LYMPHOCYTES # (AUTO) 1.4 K/uL (0.8-4.8); LYMPHOCYTES % (AUTO) 16.8 % (20.0-44.0); MEAN CORPUSCULAR HEMOGLOBIN 27 PG (26.0-33.0); MEAN CORPUSCULAR HGB CONC 34 g/dl (31.0-36.0); MEAN CORPUSCULAR VOLUME 80 fL (80-96); MONOCYTES # (AUTO) 0.6 K/uL (0.1-1.30); MONOCYTES % (AUTO) 7.3 % (2.0-12.0); NEUTROPHILS % (AUTO) 73.9 % (43.0-81.0); PLATELET COUNT (AUTO) 240 K/uL (150-450); RED CELL DISTRIBUTION WIDTH 14.9 % (11.5-15.0); WHITE BLOOD COUNT (AUTO) 8.1 K/uL (4.3-11.0)
[2023-06-06 09:27] LABS: APPEARANCE,URINE CLEAR (CLEAR); BILIRUBIN,URINE 1+ (NEGATIVE); BLOOD, URINE NEGATIVE Ery/uL (NEGATIVE); COLOR,URINE YELLOW (YELLOW); KETONES,URINE NEGATIVE (NEGATIVE); LEUKOCYTE ESTERASE ,URINE NEGATIVE (NEGATIVE); NITRITE, URINE NEGATIVE (NEGATIVE); PH,URINE 6.5 (5.0-8.0); PROTEIN,URINE 1+ mg/dl (NEGATIVE); UGLUCOSE NEGATIVE (NEGATIVE)
[2023-06-06 09:45] LABS: ADD URINE CULTURE NO; BACTERIA,URINE Rare /HPF (None Seen); RBC,URINE NONE SEEN /HPF (0-2); SQUAMOUS EPITHELIAL CELL,UR Rare /HPF (None Seen); WBC,URINE 0-2 /HPF (0-3)
[2023-06-06 09:45] LABS: CALCIUM, SERUM 8.9 mg/dL (8.5-10.1); CARBON DIOXIDE 23 mmol/L (21-32); CHLORIDE 100 mmol/L (98-107); GLUCOSE 112 mg/dL (74-106); POTASSIUM 3.8 mmol/L (3.5-5.1); SODIUM SERUM 133 mmol/L (136-145); UREA NITROGEN, BLOOD 18 mg/dL (7-18)
[2023-06-06 09:51] LABS: ALANINE AMINOTRANSFERASE 35 U/L (12-78); ALBUMIN 4.2 g/dL (3.4-5.0); ALKALINE PHOSPHATASE 130 U/L (46-116); ASPARTATE AMINOTRANSFERASE 30 U/L (15-37); BILIRUBIN,DIRECT 0.2 mg/dL (0.0-0.2); BILIRUBIN,TOTAL 0.9 mg/dL (0.2-1.0); SALICYLATE 1.6 mg/dL (2.8-20.0); TOTAL PROTEIN, SERUM 7.9 g/dL (6.4-8.2)
[2023-06-06 09:52] LABS: ACETAMINOPHEN 0 ug/ml (10-30); ALCOHOL, BLOOD < 3 mg/dL (0-10)
[2023-06-06 09:58] LABS: BARBITURATE, URINE NEGATIVE (NEGATIVE); BENZODIAZEPINE, URINE NEGATIVE (NEGATIVE); COCCAINE, URINE NEGATIVE (NEGATIVE); OPIATE, URINE NEGATIVE (NEGATIVE); PHENCYCLIDINE SCREEN,URINE NEGATIVE (NEGATIVE)
[2023-06-06 10:00] LABS: AMPHETAMINE, URINE POSITIVE (NEGATIVE); CANNABINOID, URINE POSITIVE (NEGATIVE)
[2023-06-07] MEDS ORDERED: buPROPion 75 MG TABLET PO ONE (08:30)
[2023-06-07] MEDS ORDERED: BUPROPION XL 150 MG TAB.ER.24 PO ONE (08:47)
[2023-06-07] MEDS ORDERED: HYDR-4303 PO (08:58)
[2023-06-07] MEDS ORDERED: FLUOXETINE HCL 20 MG CAPSULE PO SCH (09:00)
[2023-06-07 09:18] VITALS: BP 138/69; TEMP 98; O2SAT 99
== END 2023-06-07 09:18 | disposition home or self-care (01) ==
LOC: ER 08:00
DX: F32.A Depression, unspecified (principal); F19.10 Other psychoactive substance abuse, uncomplicated; F20.9 Schizophrenia, unspecified; I10 Essential (primary) hypertension; E11.9 Type 2 diabetes mellitus without complications; F17.200 Nicotine dependence, unspecified, uncomplicated; Z79.899 Other long term (current) drug therapy; Z79.82 Long term (current) use of aspirin; Z98.890 Other specified postprocedural states; Z91.013 Allergy to seafood
CPT/HCPCS: 36415; 80048-TC; 80076-TC; 81001; 84484-TC; 85025-TC; G0480

== ENCOUNTER 2023-06-12 02:17 | Emergency (ER) | payer OTHER ==
[~2023-06-12] VITALS: Ht 170.2 cm; Wt 83.5 kg
[~2023-06-12 02:17] MED LIST changes: +HYDR-4303 PO
[2023-06-12 02:29] VITALS: BP 143/80; TEMP 98.3; O2SAT 98
[2023-06-12] MEDS ORDERED: KETOROLAC TROMETHAMINE INJ 30 MG/ML VIAL ONE (02:47)
[2023-06-12] MEDS ORDERED: methylPREDNISolone SOD SUCC 40 MG/ML VIAL ONE (02:47)
[2023-06-12] MEDS ORDERED: CYCLOBENZAPRINE 10 MG TABLET ONE (02:47)
[2023-06-12] MEDS ORDERED: methylPREDNISolone SOD SUCC 40 MG/ML VIAL IM ONE (03:00)
[2023-06-12] MEDS ORDERED: KETOROLAC TROMETHAMINE INJ 60 MG/2 ML VIAL IM ONE (03:00)
[2023-06-12] MEDS ORDERED: CYCLOBENZAPRINE 10 MG TABLET PO ONE (03:00)
[2023-06-12] MEDS ORDERED: CYCL5TAB PO ×2 (03:38→16:09)
[2023-06-12] MEDS ORDERED: KETO10TA2 PO (03:38)
[2023-06-12] MEDS ORDERED: GABA-532 PO (16:09)
== END 2023-06-12 03:51 | disposition home or self-care (01) ==
LOC: ER 02:30
DX: G89.29 Other chronic pain (principal); M54.41 Lumbago with sciatica, right side; I10 Essential (primary) hypertension; E11.9 Type 2 diabetes mellitus without complications; F20.0 Paranoid schizophrenia; F17.200 Nicotine dependence, unspecified, uncomplicated; Z91.012 Allergy to eggs; Z91.018 Allergy to other foods; Z59.01 Sheltered homelessness
CPT/HCPCS: 99284; 96372 ×2; J2920; J1885

== ENCOUNTER 2023-06-12 12:20 | Emergency (ER) | payer OTHER ==
[~2023-06-12] VITALS: Ht 170.2 cm; Wt 85.7 kg
[~2023-06-12 12:20] MED LIST changes: +CYCL5TAB PO; +KETO10TA2 PO
[2023-06-12] MEDS ORDERED: MORPHINE SULFATE INJ 2 MG/ML DISP.SYRIN IV ONE (13:30)
[2023-06-12] MEDS ORDERED: ONDANSETRON HCL/PF 4 MG/2 ML VIAL IV ONE (13:30)
[2023-06-12] MEDS ORDERED: ONDANSETRON HCL/PF 4 MG/2 ML VIAL ONE (13:33)
[2023-06-12] MEDS ORDERED: MORPHINE SULFATE INJ 4 MG/ML DISP.SYRIN ONE (13:33)
[2023-06-12 13:49] LABS: BASOPHILS % (AUTO) 0.2 % (0.0-2.0); HEMATOCRIT 38 % (39-51); HEMOGLOBIN 12.9 g/dL (13.5-17.5); LYMPHOCYTES # (AUTO) 0.6 K/uL (0.8-4.8); LYMPHOCYTES % (AUTO) 8.1 % (20.0-44.0); MEAN CORPUSCULAR HEMOGLOBIN 27 PG (26.0-33.0); MEAN CORPUSCULAR HGB CONC 34 g/dl (31.0-36.0); MEAN CORPUSCULAR VOLUME 80 fL (80-96); MONOCYTES # (AUTO) 0.3 K/uL (0.1-1.30); MONOCYTES % (AUTO) 4.3 % (2.0-12.0); NEUTROPHILS # (AUTO) 6.2 K/uL (1.8-8.9); NEUTROPHILS % (AUTO) 87.4 % (43.0-81.0); PLATELET COUNT (AUTO) 242 K/uL (150-450); RED BLOOD CELL COUNT(AUTO) 4.74 MIL/uL (4.5-6.0); RED CELL DISTRIBUTION WIDTH 15.4 % (11.5-15.0); WHITE BLOOD COUNT (AUTO) 7.1 K/uL (4.3-11.0)
[2023-06-12 14:01] LABS: CALCIUM, SERUM 9.7 mg/dL (8.5-10.1); CARBON DIOXIDE 27 mmol/L (21-32); CHLORIDE 102 mmol/L (98-107); CREATININE 1.1 mg/dL (0.6-1.3); GLUCOSE 159 mg/dL (74-106); POTASSIUM 4.4 mmol/L (3.5-5.1); SODIUM SERUM 135 mmol/L (136-145); UREA NITROGEN, BLOOD 24 mg/dL (7-18)
[2023-06-12 14:05] LABS: ALANINE AMINOTRANSFERASE 27 U/L (12-78); ALBUMIN 4.1 g/dL (3.4-5.0); ALKALINE PHOSPHATASE 123 U/L (46-116); ASPARTATE AMINOTRANSFERASE 20 U/L (15-37); BILIRUBIN,DIRECT 0.2 mg/dL (0.0-0.2); BILIRUBIN,TOTAL 0.5 mg/dL (0.2-1.0); LIPASE 32 U/L (16-77)
[2023-06-12 14:06] LABS: ALCOHOL, BLOOD < 3 mg/dL (0-10)
[2023-06-12] MEDS ORDERED: IV NS 0.9% 1,000 ML BAG IV ONE (14:30)
[2023-06-12 14:55] VITALS: BP 179/124; TEMP 98.1; O2SAT 99
[2023-06-12 15:05] LABS: BARBITURATE, URINE NEGATIVE (NEGATIVE); BENZODIAZEPINE, URINE NEGATIVE (NEGATIVE); COCCAINE, URINE NEGATIVE (NEGATIVE); PHENCYCLIDINE SCREEN,URINE NEGATIVE (NEGATIVE)
[2023-06-12 15:10] LABS: AMPHETAMINE, URINE POSITIVE (NEGATIVE); CANNABINOID, URINE POSITIVE (NEGATIVE); OPIATE, URINE POSITIVE (NEGATIVE)
[2023-06-12 15:39] LABS: APPEARANCE,URINE CLEAR (CLEAR); BILIRUBIN,URINE NEGATIVE (NEGATIVE); BLOOD, URINE NEGATIVE Ery/uL (NEGATIVE); COLOR,URINE YELLOW (YELLOW); KETONES,URINE NEGATIVE (NEGATIVE); LEUKOCYTE ESTERASE ,URINE NEGATIVE (NEGATIVE); NITRITE, URINE NEGATIVE (NEGATIVE); PROTEIN,URINE TRACE mg/dl (NEGATIVE); UGLUCOSE TRACE mg/dL (NEGATIVE); UROBILINOGEN,URINE 0.2 EU/dL (0.2)
[2023-06-12 15:57] LABS: ADD URINE CULTURE NO; BACTERIA,URINE None seen /HPF (None Seen); MUCUS,URINE Few /LPF (None Seen); RBC,URINE 0-2 /HPF (0-2); SQUAMOUS EPITHELIAL CELL,UR 0-2 /HPF (None Seen); WBC,URINE 0-2 /HPF (0-3)
[2023-06-12] MEDS ORDERED: GABA-532 PO (16:09)
[2023-06-12] MEDS ORDERED: CYCL5TAB PO (16:09)
== END 2023-06-12 16:26 | disposition home or self-care (01) ==
LOC: ER 12:23
DX: G89.29 Other chronic pain (principal); M54.42 Lumbago with sciatica, left side; M54.41 Lumbago with sciatica, right side; I10 Essential (primary) hypertension; E11.9 Type 2 diabetes mellitus without complications; F20.0 Paranoid schizophrenia; F17.200 Nicotine dependence, unspecified, uncomplicated; Z91.012 Allergy to eggs; Z91.018 Allergy to other foods; Z79.84 Long term (current) use of oral hypoglycemic drugs; Z79.899 Other long term (current) drug therapy
CPT/HCPCS: 99285; 96374; 96361; 96375; 93005 ×2; 71045; 85025; 80048; 83690; 80076; 81001; 36415; 84484; 80320; 80307; J2270; J2405; J7030; G0480

== ENCOUNTER 2023-06-20 07:40 | Emergency (ER) | payer OTHER ==
[~2023-06-20] VITALS: Ht 170.2 cm; Wt 85.7 kg
[~2023-06-20 07:40] MED LIST changes: +GABA-532 PO
[2023-06-20 08:50] LABS: BASOPHILS % (AUTO) 0.3 % (0.0-2.0); EOSINOPHILS # (AUTO) 0.1 K/uL (0.0-0.7); EOSINOPHILS % (AUTO) 1.5 % (0.0-6.0); HEMATOCRIT 41 % (39-51); HEMOGLOBIN 13.5 g/dL (13.5-17.5); MEAN CORPUSCULAR HEMOGLOBIN 27 PG (26.0-33.0); MEAN CORPUSCULAR HGB CONC 33 g/dl (31.0-36.0); MEAN CORPUSCULAR VOLUME 81 fL (80-96); MONOCYTES # (AUTO) 0.6 K/uL (0.1-1.30); MONOCYTES % (AUTO) 7.1 % (2.0-12.0); NEUTROPHILS # (AUTO) 6.2 K/uL (1.8-8.9); NEUTROPHILS % (AUTO) 78.1 % (43.0-81.0); PLATELET COUNT (AUTO) 220 K/uL (150-450); RED BLOOD CELL COUNT(AUTO) 5.05 MIL/uL (4.5-6.0); RED CELL DISTRIBUTION WIDTH 15.4 % (11.5-15.0); WHITE BLOOD COUNT (AUTO) 7.9 K/uL (4.3-11.0)
[2023-06-20 09:15] LABS: CALCIUM, SERUM 9.3 mg/dL (8.5-10.1); CARBON DIOXIDE 30 mmol/L (21-32); CHLORIDE 99 mmol/L (98-107); CREATININE 1.1 mg/dL (0.6-1.3); GLUCOSE 111 mg/dL (74-106); SODIUM SERUM 139 mmol/L (136-145); UREA NITROGEN, BLOOD 16 mg/dL (7-18)
[2023-06-20 09:23] LABS: ALANINE AMINOTRANSFERASE 42 U/L (12-78); ALBUMIN 4.2 g/dL (3.4-5.0); ALKALINE PHOSPHATASE 143 U/L (46-116); ASPARTATE AMINOTRANSFERASE 28 U/L (15-37); BILIRUBIN,DIRECT 0.2 mg/dL (0.0-0.2); BILIRUBIN,TOTAL 0.5 mg/dL (0.2-1.0); NT-PRO BNP 304 pg/mL (0-125); TOTAL PROTEIN, SERUM 8.4 g/dL (6.4-8.2)
[2023-06-20 10:09] VITALS: BP 148/81; TEMP 98.4; O2SAT 100
== END 2023-06-20 10:10 | disposition home or self-care (01) ==
LOC: ER 07:54
DX: R07.9 Chest pain, unspecified (principal); I10 Essential (primary) hypertension; E11.9 Type 2 diabetes mellitus without complications; G89.29 Other chronic pain; F20.0 Paranoid schizophrenia; Z91.012 Allergy to eggs; Z91.018 Allergy to other foods; Z79.84 Long term (current) use of oral hypoglycemic drugs; Z79.899 Other long term (current) drug therapy
CPT/HCPCS: 36415; 71045-TC; 80048-TC; 80076-TC; 83880; 84484-TC; 85025-TC

== ENCOUNTER 2023-06-22 05:14 | Emergency (ER) | payer OTHER ==
[~2023-06-22] VITALS: Ht 160 cm; Wt 63.5 kg
[2023-06-22 06:59] LABS: BASOPHILS % (AUTO) 0.3 % (0.0-2.0); EOSINOPHILS # (AUTO) 0.1 K/uL (0.0-0.7); EOSINOPHILS % (AUTO) 1.3 % (0.0-6.0); HEMATOCRIT 37 % (39-51); HEMOGLOBIN 12.3 g/dL (13.5-17.5); LYMPHOCYTES # (AUTO) 1.3 K/uL (0.8-4.8); LYMPHOCYTES % (AUTO) 16.9 % (20.0-44.0); MEAN CORPUSCULAR HEMOGLOBIN 27 PG (26.0-33.0); MEAN CORPUSCULAR HGB CONC 34 g/dl (31.0-36.0); MEAN CORPUSCULAR VOLUME 81 fL (80-96); MONOCYTES # (AUTO) 0.6 K/uL (0.1-1.30); MONOCYTES % (AUTO) 7.9 % (2.0-12.0); NEUTROPHILS # (AUTO) 5.9 K/uL (1.8-8.9); NEUTROPHILS % (AUTO) 73.6 % (43.0-81.0); PLATELET COUNT (AUTO) 187 K/uL (150-450); RED CELL DISTRIBUTION WIDTH 15.3 % (11.5-15.0)
[2023-06-22 07:11] LABS: APPEARANCE,URINE CLEAR (CLEAR); BILIRUBIN,URINE NEGATIVE (NEGATIVE); BLOOD, URINE NEGATIVE Ery/uL (NEGATIVE); COLOR,URINE YELLOW (YELLOW); KETONES,URINE NEGATIVE (NEGATIVE); LEUKOCYTE ESTERASE ,URINE NEGATIVE (NEGATIVE); NITRITE, URINE NEGATIVE (NEGATIVE); PH,URINE 5.5 (5.0-8.0); PROTEIN,URINE NEGATIVE (NEGATIVE); UGLUCOSE NEGATIVE (NEGATIVE); UROBILINOGEN,URINE 0.2 EU/dL (0.2)
[2023-06-22 07:16] LABS: CALCIUM, SERUM 8.9 mg/dL (8.5-10.1); CARBON DIOXIDE 28 mmol/L (21-32); CHLORIDE 101 mmol/L (98-107); GLUCOSE 105 mg/dL (74-106); POTASSIUM 4.1 mmol/L (3.5-5.1); SODIUM SERUM 136 mmol/L (136-145); UREA NITROGEN, BLOOD 17 mg/dL (7-18)
[2023-06-22 07:19] LABS: ALANINE AMINOTRANSFERASE 32 U/L (12-78); ALBUMIN 3.6 g/dL (3.4-5.0); ALCOHOL, BLOOD < 3 mg/dL (0-10); ALKALINE PHOSPHATASE 121 U/L (46-116); ASPARTATE AMINOTRANSFERASE 21 U/L (15-37); BILIRUBIN,DIRECT 0.2 mg/dL (0.0-0.2); BILIRUBIN,TOTAL 0.3 mg/dL (0.2-1.0); TOTAL PROTEIN, SERUM 7.4 g/dL (6.4-8.2)
[2023-06-22 07:20] LABS: ACETAMINOPHEN <10 ug/ml (10-30); SALICYLATE 1.8 mg/dL (2.8-20.0)
[2023-06-22 07:33] LABS: AMPHETAMINE, URINE NEGATIVE (NEGATIVE); BARBITURATE, URINE NEGATIVE (NEGATIVE); BENZODIAZEPINE, URINE NEGATIVE (NEGATIVE); COCCAINE, URINE NEGATIVE (NEGATIVE); PHENCYCLIDINE SCREEN,URINE NEGATIVE (NEGATIVE)
[2023-06-22 07:34] LABS: CANNABINOID, URINE POSITIVE (NEGATIVE); OPIATE, URINE POSITIVE (NEGATIVE)
[2023-06-22 08:11] VITALS: BP 148/89; TEMP 98.7; O2SAT 100
== END 2023-06-22 21:30 ==
LOC: ER 05:17
DX: R45.851 Suicidal ideations (principal); F19.10 Other psychoactive substance abuse, uncomplicated; F20.0 Paranoid schizophrenia; I10 Essential (primary) hypertension; F17.200 Nicotine dependence, unspecified, uncomplicated; Z79.899 Other long term (current) drug therapy; Z20.822 Contact with and (suspected) exposure to COVID-19; Z79.82 Long term (current) use of aspirin; Z91.018 Allergy to other foods
CPT/HCPCS: 99285; 85025; 80048; 80076; 81003; 36415; 87426; 80143; 80320; 80307; C9803; G0480

== ENCOUNTER 2023-07-02 07:50 | Emergency (ER) | payer OTHER ==
[~2023-07-02] VITALS: Ht 170.2 cm; Wt 87.5 kg
[2023-07-02 08:23] LABS: BASOPHILS % (AUTO) 0.5 % (0.0-2.0); EOSINOPHILS # (AUTO) 0.1 K/uL (0.0-0.7); EOSINOPHILS % (AUTO) 1.5 % (0.0-6.0); HEMATOCRIT 34 % (39-51); HEMOGLOBIN 11.3 g/dL (13.5-17.5); LYMPHOCYTES # (AUTO) 1.5 K/uL (0.8-4.8); LYMPHOCYTES % (AUTO) 15.3 % (20.0-44.0); MEAN CORPUSCULAR HEMOGLOBIN 27 PG (26.0-33.0); MEAN CORPUSCULAR HGB CONC 34 g/dl (31.0-36.0); MEAN CORPUSCULAR VOLUME 81 fL (80-96); MONOCYTES # (AUTO) 1.1 K/uL (0.1-1.30); MONOCYTES % (AUTO) 11.6 % (2.0-12.0); NEUTROPHILS # (AUTO) 6.8 K/uL (1.8-8.9); NEUTROPHILS % (AUTO) 71.1 % (43.0-81.0); PLATELET COUNT (AUTO) 158 K/uL (150-450); RED BLOOD CELL COUNT(AUTO) 4.15 MIL/uL (4.5-6.0); RED CELL DISTRIBUTION WIDTH 16.1 % (11.5-15.0); WHITE BLOOD COUNT (AUTO) 9.5 K/uL (4.3-11.0)
[2023-07-02 08:29] LABS: APPEARANCE,URINE CLEAR (CLEAR); BILIRUBIN,URINE NEGATIVE (NEGATIVE); BLOOD, URINE NEGATIVE Ery/uL (NEGATIVE); COLOR,URINE YELLOW (YELLOW); KETONES,URINE NEGATIVE (NEGATIVE); LEUKOCYTE ESTERASE ,URINE NEGATIVE (NEGATIVE); NITRITE, URINE NEGATIVE (NEGATIVE); PH,URINE 7.5 (5.0-8.0); PROTEIN,URINE NEGATIVE (NEGATIVE); UGLUCOSE TRACE mg/dL (NEGATIVE)
[2023-07-02 08:36] LABS: CALCIUM, SERUM 9.2 mg/dL (8.5-10.1); CARBON DIOXIDE 24 mmol/L (21-32); CHLORIDE 102 mmol/L (98-107); CREATININE 1.2 mg/dL (0.6-1.3); GLUCOSE 223 mg/dL (74-106); POTASSIUM 4.1 mmol/L (3.5-5.1); SODIUM SERUM 135 mmol/L (136-145); UREA NITROGEN, BLOOD 34 mg/dL (7-18)
[2023-07-02 08:38] LABS: AMPHETAMINE, URINE NEGATIVE (NEGATIVE); BARBITURATE, URINE NEGATIVE (NEGATIVE); BENZODIAZEPINE, URINE NEGATIVE (NEGATIVE); COCCAINE, URINE NEGATIVE (NEGATIVE); OPIATE, URINE NEGATIVE (NEGATIVE); PHENCYCLIDINE SCREEN,URINE NEGATIVE (NEGATIVE)
[2023-07-02 08:40] LABS: CANNABINOID, URINE POSITIVE (NEGATIVE)
[2023-07-02 08:42] LABS: ALANINE AMINOTRANSFERASE 46 U/L (12-78); ALBUMIN 3.5 g/dL (3.4-5.0); ALCOHOL, BLOOD < 3 mg/dL (0-10); ALKALINE PHOSPHATASE 140 U/L (46-116); ASPARTATE AMINOTRANSFERASE 40 U/L (15-37); BILIRUBIN,DIRECT 0.1 mg/dL (0.0-0.2); BILIRUBIN,TOTAL 0.3 mg/dL (0.2-1.0); TOTAL PROTEIN, SERUM 7.2 g/dL (6.4-8.2)
[2023-07-02 08:48] LABS: ACETAMINOPHEN 0 ug/ml (10-30); SALICYLATE 1.6 mg/dL (2.8-20.0)
[2023-07-02 09:37] LABS: ADD URINE CULTURE NO; BACTERIA,URINE Rare /HPF (None Seen); RBC,URINE 0-2 /HPF (0-2); SQUAMOUS EPITHELIAL CELL,UR Rare /HPF (None Seen); WBC,URINE 0-2 /HPF (0-3)
[2023-07-03 10:30] VITALS: BP 13/75; TEMP 98.3; O2SAT 97
== END 2023-07-03 12:35 | disposition home or self-care (01) ==
LOC: ER 07:50
DX: R45.851 Suicidal ideations (principal); F20.9 Schizophrenia, unspecified; I10 Essential (primary) hypertension; E11.9 Type 2 diabetes mellitus without complications; F17.200 Nicotine dependence, unspecified, uncomplicated; Z79.82 Long term (current) use of aspirin; Z20.822 Contact with and (suspected) exposure to COVID-19; Z79.899 Other long term (current) drug therapy; Z98.890 Other specified postprocedural states; Z88.1 Allergy status to other antibiotic agents
CPT/HCPCS: 99285; 85025; 80048; 80076; 81001; 36415; 87426; 80143; 80320; 80307; C9803; G0480

== ENCOUNTER 2023-07-15 16:30 | Emergency (ER) | payer OTHER ==
[~2023-07-15] VITALS: Ht 170.2 cm; Wt 87.5 kg
[2023-07-15 16:41] VITALS: BP 136/88; TEMP 98; O2SAT 97
[2023-07-15 17:18] LABS: APPEARANCE,URINE CLEAR (CLEAR); BILIRUBIN,URINE NEGATIVE (NEGATIVE); BLOOD, URINE NEGATIVE Ery/uL (NEGATIVE); COLOR,URINE YELLOW (YELLOW); KETONES,URINE NEGATIVE (NEGATIVE); LEUKOCYTE ESTERASE ,URINE NEGATIVE (NEGATIVE); NITRITE, URINE NEGATIVE (NEGATIVE); PROTEIN,URINE NEGATIVE (NEGATIVE); UGLUCOSE NEGATIVE (NEGATIVE); UROBILINOGEN,URINE 0.2 EU/dL (0.2)
[2023-07-15 17:35] LABS: AMPHETAMINE, URINE NEGATIVE (NEGATIVE); BARBITURATE, URINE NEGATIVE (NEGATIVE); BENZODIAZEPINE, URINE NEGATIVE (NEGATIVE); COCCAINE, URINE NEGATIVE (NEGATIVE); OPIATE, URINE NEGATIVE (NEGATIVE); PHENCYCLIDINE SCREEN,URINE NEGATIVE (NEGATIVE)
[2023-07-15 17:36] LABS: CANNABINOID, URINE POSITIVE (NEGATIVE)
[2023-07-15 18:11] LABS: BASOPHILS % (AUTO) 0.3 % (0.0-2.0); EOSINOPHILS # (AUTO) 0.1 K/uL (0.0-0.7); EOSINOPHILS % (AUTO) 1.5 % (0.0-6.0); HEMATOCRIT 41 % (39-51); HEMOGLOBIN 13.7 g/dL (13.5-17.5); LYMPHOCYTES # (AUTO) 1.3 K/uL (0.8-4.8); LYMPHOCYTES % (AUTO) 14.6 % (20.0-44.0); MEAN CORPUSCULAR HEMOGLOBIN 27 PG (26.0-33.0); MEAN CORPUSCULAR HGB CONC 34 g/dl (31.0-36.0); MEAN CORPUSCULAR VOLUME 81 fL (80-96); MONOCYTES # (AUTO) 0.9 K/uL (0.1-1.30); MONOCYTES % (AUTO) 9.6 % (2.0-12.0); NEUTROPHILS # (AUTO) 6.6 K/uL (1.8-8.9); PLATELET COUNT (AUTO) 189 K/uL (150-450); RED BLOOD CELL COUNT(AUTO) 5.01 MIL/uL (4.5-6.0); RED CELL DISTRIBUTION WIDTH 16.4 % (11.5-15.0); WHITE BLOOD COUNT (AUTO) 8.9 K/uL (4.3-11.0)
[2023-07-15 18:20] LABS: CALCIUM, SERUM 9.8 mg/dL (8.5-10.1); CARBON DIOXIDE 27 mmol/L (21-32); CHLORIDE 102 mmol/L (98-107); CREATININE 1.2 mg/dL (0.6-1.3); GLUCOSE 111 mg/dL (74-106); POTASSIUM 4.5 mmol/L (3.5-5.1); SODIUM SERUM 138 mmol/L (136-145); UREA NITROGEN, BLOOD 27 mg/dL (7-18)
[2023-07-15 18:26] LABS: ALANINE AMINOTRANSFERASE 40 U/L (12-78); ALBUMIN 4.1 g/dL (3.4-5.0); ALCOHOL, BLOOD < 3 mg/dL (0-10); ALKALINE PHOSPHATASE 141 U/L (46-116); ASPARTATE AMINOTRANSFERASE 28 U/L (15-37); BILIRUBIN,DIRECT 0.2 mg/dL (0.0-0.2); BILIRUBIN,TOTAL 0.4 mg/dL (0.2-1.0); TOTAL PROTEIN, SERUM 8.5 g/dL (6.4-8.2)
[2023-07-15 18:30] LABS: ACETAMINOPHEN 0 ug/ml (10-30); SALICYLATE 1.2 mg/dL (2.8-20.0)
== END 2023-07-16 11:20 | disposition left against medical advice (07) ==
LOC: ER 16:35
DX: R45.851 Suicidal ideations (principal); I10 Essential (primary) hypertension; G89.29 Other chronic pain; F20.0 Paranoid schizophrenia; Z88.8 Allergy status to other drugs, medicaments and biological substances; Z91.012 Allergy to eggs; Z91.018 Allergy to other foods; Z20.822 Contact with and (suspected) exposure to COVID-19
CPT/HCPCS: 36415; 80048-TC; 80076-TC; 85025-TC; G0480

== ENCOUNTER 2023-07-21 22:13 | Emergency (ER) | payer OTHER ==
[~2023-07-21] VITALS: Ht 170.2 cm; Wt 87.5 kg
[2023-07-21 22:47] VITALS: BP 139/95; TEMP 98.5; O2SAT 94
[2023-07-21 22:54] LABS: APPEARANCE,URINE CLEAR (CLEAR); BILIRUBIN,URINE NEGATIVE (NEGATIVE); BLOOD, URINE NEGATIVE Ery/uL (NEGATIVE); COLOR,URINE YELLOW (YELLOW); KETONES,URINE NEGATIVE (NEGATIVE); LEUKOCYTE ESTERASE ,URINE NEGATIVE (NEGATIVE); NITRITE, URINE NEGATIVE (NEGATIVE); PH,URINE 6.5 (5.0-8.0); PROTEIN,URINE NEGATIVE (NEGATIVE); UGLUCOSE NEGATIVE (NEGATIVE); UROBILINOGEN,URINE 0.2 EU/dL (0.2)
[2023-07-21 23:00] LABS: AMPHETAMINE, URINE NEGATIVE (NEGATIVE); BARBITURATE, URINE NEGATIVE (NEGATIVE); BENZODIAZEPINE, URINE NEGATIVE (NEGATIVE); CANNABINOID, URINE POSITIVE (NEGATIVE); COCCAINE, URINE NEGATIVE (NEGATIVE); OPIATE, URINE NEGATIVE (NEGATIVE); PHENCYCLIDINE SCREEN,URINE NEGATIVE (NEGATIVE)
[2023-07-21 23:34] LABS: BASOPHILS # (AUTO) 0.1 K/uL (0.0-0.2); BASOPHILS % (AUTO) 1.3 % (0.0-2.0); EOSINOPHILS # (AUTO) 0.2 K/uL (0.0-0.7); EOSINOPHILS % (AUTO) 1.9 % (0.0-6.0); HEMATOCRIT 42 % (39-51); HEMOGLOBIN 14.2 g/dL (13.5-17.5); LYMPHOCYTES # (AUTO) 2.2 K/uL (0.8-4.8); LYMPHOCYTES % (AUTO) 22.7 % (20.0-44.0); MEAN CORPUSCULAR HEMOGLOBIN 27 PG (26.0-33.0); MEAN CORPUSCULAR HGB CONC 34 g/dl (31.0-36.0); MEAN CORPUSCULAR VOLUME 81 fL (80-96); MONOCYTES % (AUTO) 9.8 % (2.0-12.0); NEUTROPHILS # (AUTO) 6.3 K/uL (1.8-8.9); NEUTROPHILS % (AUTO) 64.3 % (43.0-81.0); PLATELET COUNT (AUTO) 176 K/uL (150-450); RED BLOOD CELL COUNT(AUTO) 5.16 MIL/uL (4.5-6.0); RED CELL DISTRIBUTION WIDTH 16.7 % (11.5-15.0); WHITE BLOOD COUNT (AUTO) 9.7 K/uL (4.3-11.0)
[2023-07-21 23:41] LABS: CALCIUM, SERUM 9.7 mg/dL (8.5-10.1); CARBON DIOXIDE 26 mmol/L (21-32); CHLORIDE 101 mmol/L (98-107); CREATININE 1.2 mg/dL (0.6-1.3); GLUCOSE 153 mg/dL (74-106); POTASSIUM 4.4 mmol/L (3.5-5.1); SODIUM SERUM 135 mmol/L (136-145); UREA NITROGEN, BLOOD 20 mg/dL (7-18)
[2023-07-21 23:50] LABS: ACETAMINOPHEN <10 ug/ml (10-30); ALANINE AMINOTRANSFERASE 30 U/L (12-78); ALBUMIN 3.8 g/dL (3.4-5.0); ALCOHOL, BLOOD < 3 mg/dL (0-10); ALKALINE PHOSPHATASE 125 U/L (46-116); ASPARTATE AMINOTRANSFERASE 27 U/L (15-37); BILIRUBIN,DIRECT 0.1 mg/dL (0.0-0.2); BILIRUBIN,TOTAL 0.5 mg/dL (0.2-1.0); SALICYLATE 1.6 mg/dL (2.8-20.0); TOTAL PROTEIN, SERUM 7.9 g/dL (6.4-8.2)
[2023-07-22] MEDS ORDERED: ONDANSETRON 4 MG TAB.RAPDIS ONE (00:25)
[2023-07-22] MEDS: ONDANSETRON 4 MG TAB.RAPDIS SL ONE (00:26)
== END 2023-07-22 01:49 ==
LOC: ER 22:19
DX: R45.851 Suicidal ideations (principal); R44.0 Auditory hallucinations; I10 Essential (primary) hypertension; E11.9 Type 2 diabetes mellitus without complications; G89.29 Other chronic pain; Z88.8 Allergy status to other drugs, medicaments and biological substances; Z91.012 Allergy to eggs; Z91.018 Allergy to other foods; Z79.84 Long term (current) use of oral hypoglycemic drugs; Z79.899 Other long term (current) drug therapy; Z20.822 Contact with and (suspected) exposure to COVID-19
CPT/HCPCS: 99285; 85025; 80048; 80076; 81003; 36415; 87426; 80143; 80320; 80307; Q0162; G0480

== ENCOUNTER 2023-07-22 10:32 | Emergency (ER) | payer OTHER ==
[~2023-07-22] VITALS: Ht 170.2 cm; Wt 87.5 kg
[2023-07-22 10:35] VITALS: BP 138/94; TEMP 98.2; O2SAT 97
[2023-07-22 11:12] LABS: CALCIUM, SERUM 10.1 mg/dL (8.5-10.1); CARBON DIOXIDE 26 mmol/L (21-32); CHLORIDE 100 mmol/L (98-107); CREATININE 1.1 mg/dL (0.6-1.3); GLUCOSE 159 mg/dL (74-106); POTASSIUM 3.7 mmol/L (3.5-5.1); SODIUM SERUM 135 mmol/L (136-145); UREA NITROGEN, BLOOD 19 mg/dL (7-18)
[2023-07-22 11:16] LABS: BASOPHILS % (AUTO) 0.2 % (0.0-2.0); EOSINOPHILS # (AUTO) 0.1 K/uL (0.0-0.7); EOSINOPHILS % (AUTO) 1.5 % (0.0-6.0); HEMATOCRIT 39 % (39-51); HEMOGLOBIN 13.2 g/dL (13.5-17.5); LYMPHOCYTES # (AUTO) 1.8 K/uL (0.8-4.8); LYMPHOCYTES % (AUTO) 20.3 % (20.0-44.0); MEAN CORPUSCULAR HEMOGLOBIN 28 PG (26.0-33.0); MEAN CORPUSCULAR HGB CONC 34 g/dl (31.0-36.0); MEAN CORPUSCULAR VOLUME 81 fL (80-96); MONOCYTES # (AUTO) 0.9 K/uL (0.1-1.30); MONOCYTES % (AUTO) 10.3 % (2.0-12.0); NEUTROPHILS % (AUTO) 67.7 % (43.0-81.0); PLATELET COUNT (AUTO) 144 K/uL (150-450); RED BLOOD CELL COUNT(AUTO) 4.77 MIL/uL (4.5-6.0); RED CELL DISTRIBUTION WIDTH 16.5 % (11.5-15.0); WHITE BLOOD COUNT (AUTO) 8.9 K/uL (4.3-11.0)
[2023-07-22 11:18] LABS: INR 1.09 (0.91-1.10); PARTIAL THROMBOPLASTIN TIME 29.9 SEC (24.3-34.3); PROTHROMBIN TIME 11.5 SECS (9.2-11.1)
== END 2023-07-22 14:44 ==
LOC: ER 10:35
DX: S09.90XA Unspecified injury of head, initial encounter (principal); G89.29 Other chronic pain; M54.9 Dorsalgia, unspecified; R07.89 Other chest pain; I11.0 Hypertensive heart disease with heart failure; I50.9 Heart failure, unspecified; E11.9 Type 2 diabetes mellitus without complications; F20.0 Paranoid schizophrenia; F32.A Depression, unspecified; Z91.012 Allergy to eggs; Z88.8 Allergy status to other drugs, medicaments and biological substances; Z91.018 Allergy to other foods; Z79.84 Long term (current) use of oral hypoglycemic drugs; Z79.899 Other long term (current) drug therapy
CPT/HCPCS: 36415; 70450-TC; 71045-TC; 80048-TC; 83880; 84484-TC; 85025-TC; 85730-TC; G0480

== ENCOUNTER 2023-07-25 11:10 | Emergency (ER) | payer OTHER | END 2023-07-25 13:10 | disposition left against medical advice (07) | LOC: ER 11:10 | DX: M54.50 Low back pain, unspecified (principal); Z53.21 Procedure and treatment not carried out due to patient leaving prior to being seen by health care provider ==

== ENCOUNTER 2023-08-04 19:41 | Emergency (ER) | payer OTHER ==
[~2023-08-04] VITALS: Ht 170.2 cm; Wt 93.4 kg
[2023-08-04 21:07] LABS: APPEARANCE,URINE CLEAR (CLEAR); BILIRUBIN,URINE NEGATIVE (NEGATIVE); BLOOD, URINE NEGATIVE Ery/uL (NEGATIVE); COLOR,URINE YELLOW (YELLOW); KETONES,URINE NEGATIVE (NEGATIVE); LEUKOCYTE ESTERASE ,URINE NEGATIVE (NEGATIVE); NITRITE, URINE NEGATIVE (NEGATIVE); PROTEIN,URINE NEGATIVE (NEGATIVE); UGLUCOSE NEGATIVE (NEGATIVE); UROBILINOGEN,URINE 0.2 EU/dL (0.2)
[2023-08-04 21:12] LABS: BASOPHILS % (AUTO) 0.3 % (0.0-2.0); EOSINOPHILS # (AUTO) 0.2 K/uL (0.0-0.7); EOSINOPHILS % (AUTO) 2.2 % (0.0-6.0); HEMATOCRIT 39 % (39-51); HEMOGLOBIN 13.3 g/dL (13.5-17.5); LYMPHOCYTES # (AUTO) 1.9 K/uL (0.8-4.8); LYMPHOCYTES % (AUTO) 25.8 % (20.0-44.0); MEAN CORPUSCULAR HEMOGLOBIN 28 PG (26.0-33.0); MEAN CORPUSCULAR HGB CONC 34 g/dl (31.0-36.0); MEAN CORPUSCULAR VOLUME 82 fL (80-96); MONOCYTES # (AUTO) 0.8 K/uL (0.1-1.30); MONOCYTES % (AUTO) 10.6 % (2.0-12.0); NEUTROPHILS # (AUTO) 4.5 K/uL (1.8-8.9); NEUTROPHILS % (AUTO) 61.1 % (43.0-81.0); PLATELET COUNT (AUTO) 176 K/uL (150-450); RED BLOOD CELL COUNT(AUTO) 4.78 MIL/uL (4.5-6.0); RED CELL DISTRIBUTION WIDTH 16.2 % (11.5-15.0); WHITE BLOOD COUNT (AUTO) 7.3 K/uL (4.3-11.0)
[2023-08-04 21:18] LABS: AMPHETAMINE, URINE NEGATIVE (NEGATIVE); BARBITURATE, URINE NEGATIVE (NEGATIVE); BENZODIAZEPINE, URINE NEGATIVE (NEGATIVE); CANNABINOID, URINE NEGATIVE (NEGATIVE); COCCAINE, URINE NEGATIVE (NEGATIVE); OPIATE, URINE NEGATIVE (NEGATIVE); PHENCYCLIDINE SCREEN,URINE NEGATIVE (NEGATIVE)
[2023-08-04 21:29] LABS: CALCIUM, SERUM 8.7 mg/dL (8.5-10.1); CARBON DIOXIDE 24 mmol/L (21-32); CHLORIDE 104 mmol/L (98-107); CREATININE 1.1 mg/dL (0.6-1.3); GLUCOSE 123 mg/dL (74-106); POTASSIUM 4.3 mmol/L (3.5-5.1); SODIUM SERUM 137 mmol/L (136-145); UREA NITROGEN, BLOOD 16 mg/dL (7-18)
[2023-08-04 21:37] LABS: ALANINE AMINOTRANSFERASE 44 U/L (12-78); ALBUMIN 3.7 g/dL (3.4-5.0); ALCOHOL, BLOOD < 3 mg/dL (0-10); ALKALINE PHOSPHATASE 172 U/L (46-116); ASPARTATE AMINOTRANSFERASE 30 U/L (15-37); BILIRUBIN,DIRECT 0.1 mg/dL (0.0-0.2); BILIRUBIN,TOTAL 0.3 mg/dL (0.2-1.0); TOTAL PROTEIN, SERUM 7.6 g/dL (6.4-8.2)
[2023-08-04 21:38] LABS: ACETAMINOPHEN 0 ug/ml (10-30); SALICYLATE 0.6 mg/dL (2.8-20.0)
[2023-08-05 10:05] VITALS: BP 131/59; TEMP 97.9; O2SAT 98
== END 2023-08-05 10:06 | disposition home or self-care (01) ==
LOC: ER 19:42
DX: F32.A Depression, unspecified (principal); I11.0 Hypertensive heart disease with heart failure; I50.9 Heart failure, unspecified; G89.29 Other chronic pain; E11.9 Type 2 diabetes mellitus without complications; F20.0 Paranoid schizophrenia; F17.200 Nicotine dependence, unspecified, uncomplicated; Z91.012 Allergy to eggs; Z91.018 Allergy to other foods; Z88.8 Allergy status to other drugs, medicaments and biological substances; Z79.899 Other long term (current) drug therapy; Z20.822 Contact with and (suspected) exposure to COVID-19
CPT/HCPCS: 36415; 80048-TC; 80076-TC; 85025-TC; G0480

== ENCOUNTER 2023-08-27 12:53 | Emergency (ER) | payer OTHER ==
[~2023-08-27] VITALS: Ht 167.6 cm; Wt 93.4 kg
[2023-08-27 13:01] VITALS: TEMP 98
[2023-08-27] MEDS ORDERED: ASPIRIN 81 MG TAB.CHEW ONE (13:34)
[2023-08-27] MEDS ORDERED: ACETAMINOPHEN ES 500 MG TABLET ONE (13:34)
[2023-08-27] MEDS: ACETAMINOPHEN ES 500 MG TABLET PO ONE (13:38)
[2023-08-27] MEDS: ASPIRIN 81 MG TAB.CHEW PO ONE (13:38)
[2023-08-27 15:24] LABS: BASOPHILS % (AUTO) 0.3 % (0.0-2.0); EOSINOPHILS # (AUTO) 0.1 K/uL (0.0-0.7); EOSINOPHILS % (AUTO) 2.7 % (0.0-6.0); HEMATOCRIT 38 % (39-51); HEMOGLOBIN 13.1 g/dL (13.5-17.5); LYMPHOCYTES % (AUTO) 20.3 % (20.0-44.0); MEAN CORPUSCULAR HEMOGLOBIN 28 PG (26.0-33.0); MEAN CORPUSCULAR HGB CONC 35 g/dl (31.0-36.0); MEAN CORPUSCULAR VOLUME 81 fL (80-96); MONOCYTES # (AUTO) 0.5 K/uL (0.1-1.30); MONOCYTES % (AUTO) 10.4 % (2.0-12.0); NEUTROPHILS # (AUTO) 3.3 K/uL (1.8-8.9); NEUTROPHILS % (AUTO) 66.3 % (43.0-81.0); PLATELET COUNT (AUTO) 175 K/uL (150-450); RED BLOOD CELL COUNT(AUTO) 4.73 MIL/uL (4.5-6.0); RED CELL DISTRIBUTION WIDTH 15.7 % (11.5-15.0); WHITE BLOOD COUNT (AUTO) 4.9 K/uL (4.3-11.0)
[2023-08-27 15:41] LABS: CALCIUM, SERUM 9.7 mg/dL (8.5-10.1); CARBON DIOXIDE 32 mmol/L (21-32); CHLORIDE 100 mmol/L (98-107); GLUCOSE 103 mg/dL (74-106); POTASSIUM 4.2 mmol/L (3.5-5.1); SODIUM SERUM 139 mmol/L (136-145); UREA NITROGEN, BLOOD 16 mg/dL (7-18)
[2023-08-27 17:51] VITALS: BP 135/87; O2SAT 100
== END 2023-08-27 17:35 | disposition home or self-care (01) ==
LOC: ER 12:53
DX: G89.29 Other chronic pain (principal); M54.50 Low back pain, unspecified; R07.9 Chest pain, unspecified; I11.0 Hypertensive heart disease with heart failure; I50.9 Heart failure, unspecified; E11.9 Type 2 diabetes mellitus without complications; F20.0 Paranoid schizophrenia; Z91.012 Allergy to eggs; Z91.018 Allergy to other foods; Z88.8 Allergy status to other drugs, medicaments and biological substances; Z79.84 Long term (current) use of oral hypoglycemic drugs; Z79.899 Other long term (current) drug therapy
CPT/HCPCS: 36415; 71045-TC; 72131-TC; 80048-TC; 84484-TC; 85025-TC

== ENCOUNTER 2023-08-31 18:46 | Emergency (ER) | payer OTHER ==
[~2023-08-31] VITALS: Ht 170.2 cm; Wt 93.4 kg
[2023-09-01 01:40] VITALS: TEMP 97.6
[2023-09-01 02:00] VITALS: BP 149/94; O2SAT 99
[2023-09-01 02:40] LABS: HEMATOCRIT 36 % (39-51); HEMOGLOBIN 12.3 g/dL (13.5-17.5); RED CELL DISTRIBUTION WIDTH 15.5 % (11.5-15.0); WHITE BLOOD COUNT (AUTO) 5.8 K/uL (4.3-11.0)
[2023-09-01 02:45] LABS: BASOPHILS % (AUTO) 0.5 % (0.0-2.0); EOSINOPHILS # (AUTO) 0.2 K/uL (0.0-0.7); EOSINOPHILS % (AUTO) 3.5 % (0.0-6.0); LYMPHOCYTES # (AUTO) 1.3 K/uL (0.8-4.8); LYMPHOCYTES % (AUTO) 22.8 % (20.0-44.0); MEAN CORPUSCULAR HEMOGLOBIN 28 PG (26.0-33.0); MEAN CORPUSCULAR HGB CONC 35 g/dl (31.0-36.0); MEAN CORPUSCULAR VOLUME 81 fL (80-96); MONOCYTES # (AUTO) 0.7 K/uL (0.1-1.30); MONOCYTES % (AUTO) 11.5 % (2.0-12.0); NEUTROPHILS # (AUTO) 3.6 K/uL (1.8-8.9); NEUTROPHILS % (AUTO) 61.7 % (43.0-81.0); PLATELET COUNT (AUTO) 164 K/uL (150-450); RED BLOOD CELL COUNT(AUTO) 4.44 MIL/uL (4.5-6.0)
[2023-09-01 02:53] LABS: ALANINE AMINOTRANSFERASE 42 U/L (12-78); ALBUMIN 3.6 g/dL (3.4-5.0); ALCOHOL, BLOOD 3 mg/dL (0-10); ALKALINE PHOSPHATASE 190 U/L (46-116); ASPARTATE AMINOTRANSFERASE 26 U/L (15-37); BILIRUBIN,DIRECT 0.1 mg/dL (0.0-0.2); BILIRUBIN,TOTAL 0.2 mg/dL (0.2-1.0); CARBON DIOXIDE 28 mmol/L (21-32); CHLORIDE 103 mmol/L (98-107); GLUCOSE 208 mg/dL (74-106); POTASSIUM 4.1 mmol/L (3.5-5.1); SODIUM SERUM 138 mmol/L (136-145); TOTAL PROTEIN, SERUM 7.4 g/dL (6.4-8.2); UREA NITROGEN, BLOOD 23 mg/dL (7-18)
[2023-09-01 03:08] LABS: ACETAMINOPHEN <10 ug/ml (10-30); SALICYLATE 1.3 mg/dL (2.8-20.0)
[2023-09-01 04:16] LABS: APPEARANCE,URINE CLEAR (CLEAR); BILIRUBIN,URINE NEGATIVE (NEGATIVE); BLOOD, URINE NEGATIVE Ery/uL (NEGATIVE); COLOR,URINE YELLOW (YELLOW); KETONES,URINE NEGATIVE (NEGATIVE); LEUKOCYTE ESTERASE ,URINE NEGATIVE (NEGATIVE); NITRITE, URINE NEGATIVE (NEGATIVE); PROTEIN,URINE NEGATIVE (NEGATIVE); UGLUCOSE NEGATIVE (NEGATIVE); UROBILINOGEN,URINE 0.2 EU/dL (0.2)
[2023-09-01 04:27] LABS: BARBITURATE, URINE NEGATIVE (NEGATIVE); CANNABINOID, URINE NEGATIVE (NEGATIVE); COCCAINE, URINE NEGATIVE (NEGATIVE); PHENCYCLIDINE SCREEN,URINE NEGATIVE (NEGATIVE)
[2023-09-01 04:28] LABS: AMPHETAMINE, URINE POSITIVE (NEGATIVE); BENZODIAZEPINE, URINE POSITIVE (NEGATIVE); OPIATE, URINE POSITIVE (NEGATIVE)
== END 2023-09-01 08:10 | disposition left against medical advice (07) ==
LOC: ER 18:49
DX: R45.851 Suicidal ideations (principal); I11.0 Hypertensive heart disease with heart failure; I50.9 Heart failure, unspecified; G89.29 Other chronic pain; F20.0 Paranoid schizophrenia; E11.9 Type 2 diabetes mellitus without complications; Z88.8 Allergy status to other drugs, medicaments and biological substances; Z91.012 Allergy to eggs; Z91.018 Allergy to other foods; Z79.899 Other long term (current) drug therapy; Z20.822 Contact with and (suspected) exposure to COVID-19
CPT/HCPCS: 36415; 80048-TC; 80076-TC; 85025-TC; G0480

== ENCOUNTER 2023-09-11 14:26 | Inpatient (IN) | payer OTHER ==
[~2023-09-11] VITALS: Ht 170.2 cm; Wt 99.8 kg
[2023-09-11 15:18] LABS: BASOPHILS # (AUTO) 0.1 K/uL (0.0-0.2); BASOPHILS % (AUTO) 0.4 % (0.0-2.0); HEMATOCRIT 46 % (39-51); HEMOGLOBIN 15.6 g/dL (13.5-17.5); LYMPHOCYTES # (AUTO) 1.4 K/uL (0.8-4.8); LYMPHOCYTES % (AUTO) 7.9 % (20.0-44.0); MEAN CORPUSCULAR HEMOGLOBIN 27 PG (26.0-33.0); MEAN CORPUSCULAR HGB CONC 34 g/dl (31.0-36.0); MEAN CORPUSCULAR VOLUME 79 fL (80-96); MONOCYTES # (AUTO) 1.2 K/uL (0.1-1.30); MONOCYTES % (AUTO) 7.2 % (2.0-12.0); NEUTROPHILS # (AUTO) 14.5 K/uL (1.8-8.9); NEUTROPHILS % (AUTO) 84.5 % (43.0-81.0); PLATELET COUNT (AUTO) 221 K/uL (150-450); RED BLOOD CELL COUNT(AUTO) 5.77 MIL/uL (4.5-6.0); RED CELL DISTRIBUTION WIDTH 16.1 % (11.5-15.0); WHITE BLOOD COUNT (AUTO) 17.1 K/uL (4.3-11.0)
[2023-09-11 15:31] LABS: ALANINE AMINOTRANSFERASE 236 U/L (12-78); ALBUMIN 4.3 g/dL (3.4-5.0); ALCOHOL, BLOOD 11 mg/dL (0-10); ALKALINE PHOSPHATASE 121 U/L (46-116); ASPARTATE AMINOTRANSFERASE 776 U/L (15-37); BILIRUBIN,DIRECT 0.3 mg/dL (0.0-0.2); BILIRUBIN,TOTAL 0.9 mg/dL (0.2-1.0); CALCIUM, SERUM 10.3 mg/dL (8.5-10.1); CARBON DIOXIDE 22 mmol/L (21-32); CHLORIDE 99 mmol/L (98-107); CREATININE 1.2 mg/dL (0.6-1.3); GLUCOSE 141 mg/dL (74-106); POTASSIUM 4.5 mmol/L (3.5-5.1); SODIUM SERUM 136 mmol/L (136-145); TOTAL PROTEIN, SERUM 9.3 g/dL (6.4-8.2); UREA NITROGEN, BLOOD 24 mg/dL (7-18)
[2023-09-11 15:33] LABS: ACETAMINOPHEN <10 ug/ml (10-30); SALICYLATE 1.4 mg/dL (2.8-20.0)
[2023-09-11] MEDS: IV NS 0.9% 1,000 ML BAG IV ONE (17:24)
[2023-09-11 18:49] LABS: APPEARANCE,URINE Slightly Cloudy (CLEAR); BILIRUBIN,URINE Negative (NEGATIVE); BLOOD, URINE Large Ery/uL (NEGATIVE); COLOR,URINE DARK YELLOW (YELLOW); KETONES,URINE Trace mg/dL (NEGATIVE); LEUKOCYTE ESTERASE ,URINE Negative (NEGATIVE); NITRITE, URINE Negative (NEGATIVE); PH,URINE 5.5 (5.0-8.0); PROTEIN,URINE >=300 mg/dl (NEGATIVE); UGLUCOSE Negative (NEGATIVE); UROBILINOGEN,URINE 0.2 EU/dL (0.2)
[2023-09-11 18:54] LABS: BASOPHILS # (AUTO) 0.1 K/uL (0.0-0.2); BASOPHILS % (AUTO) 0.3 % (0.0-2.0); EOSINOPHILS % (AUTO) 0.1 % (0.0-6.0); HEMATOCRIT 46 % (39-51); HEMOGLOBIN 15.8 g/dL (13.5-17.5); LYMPHOCYTES # (AUTO) 1.9 K/uL (0.8-4.8); LYMPHOCYTES % (AUTO) 12.7 % (20.0-44.0); MEAN CORPUSCULAR HEMOGLOBIN 27 PG (26.0-33.0); MEAN CORPUSCULAR HGB CONC 34 g/dl (31.0-36.0); MEAN CORPUSCULAR VOLUME 79 fL (80-96); MONOCYTES # (AUTO) 1.2 K/uL (0.1-1.30); MONOCYTES % (AUTO) 7.9 % (2.0-12.0); NEUTROPHILS # (AUTO) 12.1 K/uL (1.8-8.9); PLATELET COUNT (AUTO) 199 K/uL (150-450); RED BLOOD CELL COUNT(AUTO) 5.84 MIL/uL (4.5-6.0); RED CELL DISTRIBUTION WIDTH 16.4 % (11.5-15.0); WHITE BLOOD COUNT (AUTO) 15.3 K/uL (4.3-11.0)
[2023-09-11 19:01] LABS: AMPHETAMINE, URINE POSITIVE (NEGATIVE); BARBITURATE, URINE NEGATIVE (NEGATIVE); BENZODIAZEPINE, URINE NEGATIVE (NEGATIVE); CANNABINOID, URINE POSITIVE (NEGATIVE); COCCAINE, URINE POSITIVE (NEGATIVE); OPIATE, URINE NEGATIVE (NEGATIVE); PHENCYCLIDINE SCREEN,URINE NEGATIVE (NEGATIVE)
[2023-09-11 19:13] VITALS: O2SAT 98
[2023-09-11] MEDS ORDERED: BUSP15TA3 PO (19:14)
[2023-09-11] MEDS ORDERED: BUPR-96 PO (19:14)
[2023-09-11] MEDS ORDERED: OLAN20TA3 PO (19:14)
[2023-09-11] MEDS ORDERED: QUET400T PO (19:14)
[2023-09-11 19:35] LABS: RBC,URINE 21-50 /HPF (0-2)
[2023-09-11 19:36] LABS: ADD URINE CULTURE NO; BACTERIA,URINE Few /HPF (None Seen); FINE GRANULAR CASTS,URINE Few /LPF (None Seen); HYALINE CASTS, URINE Few /LPF (None Seen); MUCUS,URINE Many /LPF (None Seen); SQUAMOUS EPITHELIAL CELL,UR None Seen /HPF (None Seen); WBC,URINE 0-2 /HPF (0-3)
[2023-09-11] MEDS ORDERED: ASPIRIN 325 MG TABLET ONE (19:40)
[2023-09-11] MEDS: ASPIRIN 325 MG TABLET PO ONE (19:42)
[2023-09-11] MEDS ORDERED: MAGNESIUM HYDROXIDE 30 ML UDC PO PRN (20:30)
[2023-09-11] MEDS ORDERED: Z GUARD REMEDY 4 OZ OINT TP PRN (20:30)
[2023-09-11] MEDS ORDERED: MAG HYDROX/AL HYDROX/SIMETH 30 ML UDC PO PRN (20:30)
[2023-09-11] MEDS ORDERED: MORPHINE SULFATE INJ 2 MG/ML DISP.SYRIN IV PRN (20:30)
[2023-09-11] MEDS ORDERED: ZOLPIDEM TARTRATE 5 MG TABLET PO PRN (20:30)
[2023-09-11] MEDS ORDERED: HYDROCODONE/APAP 5/325MG TABLET PO PRN (20:30)
[2023-09-11] MEDS ORDERED: ONDANSETRON HCL/PF 4 MG/2 ML VIAL IVP PRN (20:30)
[2023-09-11] MEDS ORDERED: NITROGLYCERIN 0.4 MG/TAB BOTTLE SL PRN (20:30)
[2023-09-11] MEDS ORDERED: ACETAMINOPHEN 325 MG TABLET PO PRN (20:30)
[2023-09-11 21:00] VITALS: BP 166/126; TEMP 98.6; O2SAT 98
[2023-09-11] MEDS ORDERED: DEXTROSE 50%-WATER 50 ML DISP.SYRIN IV PRN (21:00)
[2023-09-11] MEDS: BLOOD SUGAR DIAGNOSTIC 1 EACH STRIP IN SCH (22:00)
[2023-09-11] MEDS: ENOXAPARIN SODIUM 40 MG/0.4 ML DISP.SYRIN SQ SCH (22:07)
[2023-09-12] VITALS: BP 149/115; TEMP 98.2; O2SAT 97
[2023-09-12] MEDS: IV 1/2NS 1000 ML 1,000 ML IV PRN (00:28)
[2023-09-12 04:00] VITALS: BP 143/118; TEMP 98.2; O2SAT 99
[2023-09-12] MEDS: INSULIN REGULAR, HUMAN 100 UNIT/ML 3 ML VIAL SQ PRN (06:44)
[2023-09-12 08:00] VITALS: BP 168/118; TEMP 98.6; O2SAT 99
[2023-09-12] MEDS: ASPIRIN EC 81 MG TABLET.DR PO SCH (08:32)
[2023-09-12] MEDS: PANTOPRAZOLE 40 MG TABLET.DR PO SCH (08:33)
[2023-09-12] MEDS: hydrALAZINE HCL 50 MG TABLET PO SCH (10:12)
[2023-09-12] MEDS ORDERED: LORAZEPAM 1 MG TABLET PO PRN (11:30)
[2023-09-12] MEDS ORDERED: QUETIAPINE FUMARATE PO (11:51)
[2023-09-12] MEDS ORDERED: BUSPIRONE HCL PO (11:51)
[2023-09-12] MEDS ORDERED: ATEN50TA PO (11:51)
[2023-09-12] MEDS ORDERED: LISI20TA30 PO (11:51)
[2023-09-12 11:54] VITALS: BP 149/71
[2023-09-12] MEDS: BUPROPION XL 150 MG TAB.ER.24 PO SCH (11:54)
[2023-09-12] MEDS: NITROGLYCERIN 30 GM TUBE TP SCH (11:54)
[2023-09-12] MEDS ORDERED: busPIRone 5 MG TABLET PO SCH ×2 (13:00)
[2023-09-12] MEDS ORDERED: BUPROPION XL 150 MG TAB.ER.24 PO SCH (17:00)
[2023-09-12] MEDS ORDERED: Medication Not On Formulary EA (Quetiapine Fumarate (Seroquel) 400 MG) PO SCH (22:00)
[2023-09-12] MEDS ORDERED: QUETIAPINE FUMARATE 100 MG TABLET PO SCH (22:00)
[2023-09-13] MEDS ORDERED: ASPIRIN 81 MG TAB.CHEW PO SCH (09:00)
[2023-09-13] MEDS ORDERED: LISINOPRIL (20MG) 20 MG TABLET PO SCH (09:00)
[2023-09-13] MEDS ORDERED: OLANZAPINE 10 MG TABLET PO SCH (09:00)
== END 2023-09-12 12:45 | disposition home or self-care (01) | DRG 812 ==
LOC: ER 14:26 → TELE 20:34
PROVIDERS: ATTEND Internal Medicine
DX: T43.621A Poisoning by amphetamines, accidental (unintentional), initial encounter (principal); K72.00 Acute and subacute hepatic failure without coma; I21.A1 Myocardial infarction type 2; F20.0 Paranoid schizophrenia; F25.1 Schizoaffective disorder, depressive type; I48.91 Unspecified atrial fibrillation; E86.0 Dehydration; D72.829 Elevated white blood cell count, unspecified; E11.9 Type 2 diabetes mellitus without complications; I50.9 Heart failure, unspecified; R45.851 Suicidal ideations; F14.10 Cocaine abuse, uncomplicated; F15.10 Other stimulant abuse, uncomplicated; F12.10 Cannabis abuse, uncomplicated; F17.210 Nicotine dependence, cigarettes, uncomplicated; F43.10 Post-traumatic stress disorder, unspecified; G89.29 Other chronic pain; Z79.82 Long term (current) use of aspirin; Z79.899 Other long term (current) drug therapy; R74.01 Elevation of levels of liver transaminase levels; Z71.6 Tobacco abuse counseling; Z59.00 Homelessness unspecified; I11.0 Hypertensive heart disease with heart failure; F10.159 Alcohol abuse with alcohol-induced psychotic disorder, unspecified; Y90.0 Blood alcohol level of less than 20 mg/100 ml; Y92.89 Other specified places as the place of occurrence of the external cause
CPT/HCPCS: 36415; 71045-TC; 80048-TC; 80076-TC; 81001; 82962-TC; 84484-TC; 85025-TC; 93307-TC; A4223; G0378; G0480; J1650; J1815; J3490; J7030

== ENCOUNTER 2023-10-14 06:05 | Emergency (ER) | payer OTHER ==
[~2023-10-14] VITALS: Ht 170.2 cm; Wt 99.8 kg
[~2023-10-14 06:05] MED LIST changes: -ATEN25TA PO; +ATEN50TA PO; +BUSPIRONE HCL PO; -CYCL5TAB PO; -GABA-532 PO; -HYDR-4303 PO; -KETO10TA2 PO; -METF-442 PO; -QUET100T PO; +QUETIAPINE FUMARATE PO
[2023-10-14] MEDS ORDERED: KETOROLAC TROMETHAMINE 15 MG/ML VIAL ONE (06:30)
[2023-10-14] MEDS ORDERED: HYDROCODONE/APAP 5/325MG TABLET ONE (06:31)
[2023-10-14] MEDS ORDERED: LIDOCAINE 5% (PATCH) 1 EA PATCH TP ONE (06:31)
[2023-10-14] MEDS: HYDROCODONE/APAP 5/325MG TABLET PO ONE (06:32)
[2023-10-14] MEDS: KETOROLAC TROMETHAMINE 15 MG/ML VIAL IM ONE (06:32)
[2023-10-14] MEDS: LIDOCAINE 5% (PATCH) 1 EA PATCH TP STA (06:33)
[2023-10-14] MEDS ORDERED: LIDO30AD10 TP (06:40)
[2023-10-14] MEDS ORDERED: METH4TAB3 PO (06:40)
[2023-10-14] MEDS ORDERED: CYCL5TAB PO (06:40)
[2023-10-14] MEDS ORDERED: IBUP-1955 PO (06:40)
[2023-10-14 06:53] VITALS: BP 136/88; TEMP 98; O2SAT 100
== END 2023-10-14 06:55 | disposition home or self-care (01) ==
LOC: ER 06:07
DX: G89.29 Other chronic pain (principal); M54.50 Low back pain, unspecified; I10 Essential (primary) hypertension; E11.9 Type 2 diabetes mellitus without complications; F17.200 Nicotine dependence, unspecified, uncomplicated; Z98.890 Other specified postprocedural states; Z79.899 Other long term (current) drug therapy; Z88.1 Allergy status to other antibiotic agents
CPT/HCPCS: 99283; 96372; J1885

== ENCOUNTER 2023-10-14 16:40 | Emergency (ER) | payer OTHER ==
[~2023-10-14] VITALS: Ht 170.2 cm; Wt 86.2 kg
[~2023-10-14 16:40] MED LIST changes: +CYCL5TAB PO; +IBUP-1955 PO; +LIDO30AD10 TP; +METH4TAB3 PO
[2023-10-14 17:34] LABS: BASOPHILS % (AUTO) 0.2 % (0.0-2.0); EOSINOPHILS # (AUTO) 0.1 K/uL (0.0-0.7); EOSINOPHILS % (AUTO) 0.5 % (0.0-6.0); HEMATOCRIT 47 % (39-51); HEMOGLOBIN 15.7 g/dL (13.5-17.5); LYMPHOCYTES # (AUTO) 1.8 K/uL (0.8-4.8); LYMPHOCYTES % (AUTO) 14.5 % (20.0-44.0); MEAN CORPUSCULAR HEMOGLOBIN 26 PG (26.0-33.0); MEAN CORPUSCULAR HGB CONC 33 g/dl (31.0-36.0); MEAN CORPUSCULAR VOLUME 79 fL (80-96); MONOCYTES # (AUTO) 1.2 K/uL (0.1-1.30); MONOCYTES % (AUTO) 9.9 % (2.0-12.0); NEUTROPHILS # (AUTO) 9.4 K/uL (1.8-8.9); NEUTROPHILS % (AUTO) 74.9 % (43.0-81.0); PLATELET COUNT (AUTO) 255 K/uL (150-450); RED BLOOD CELL COUNT(AUTO) 5.96 MIL/uL (4.5-6.0); RED CELL DISTRIBUTION WIDTH 16.8 % (11.5-15.0); WHITE BLOOD COUNT (AUTO) 12.6 K/uL (4.3-11.0)
[2023-10-14 17:55] LABS: ALANINE AMINOTRANSFERASE 67 U/L (12-78); ALBUMIN 4.6 g/dL (3.4-5.0); ALCOHOL, BLOOD < 3 mg/dL (0-10); ALKALINE PHOSPHATASE 125 U/L (46-116); ASPARTATE AMINOTRANSFERASE 59 U/L (15-37); BILIRUBIN,DIRECT 0.5 mg/dL (0.0-0.2); BILIRUBIN,TOTAL 1.7 mg/dL (0.2-1.0); CARBON DIOXIDE 25 mmol/L (21-32); CHLORIDE 96 mmol/L (98-107); CREATININE 1.1 mg/dL (0.6-1.3); GLUCOSE 135 mg/dL (74-106); POTASSIUM 4.4 mmol/L (3.5-5.1); SODIUM SERUM 132 mmol/L (136-145); TOTAL PROTEIN, SERUM 9.7 g/dL (6.4-8.2); UREA NITROGEN, BLOOD 27 mg/dL (7-18)
[2023-10-14 17:56] LABS: ACETAMINOPHEN 0 ug/ml (10-30); SALICYLATE < 0.2 mg/dL (2.8-20.0)
[2023-10-14 18:12] LABS: APPEARANCE,URINE Clear (CLEAR); BILIRUBIN,URINE Negative (NEGATIVE); BLOOD, URINE Small Ery/uL (NEGATIVE); COLOR,URINE YELLOW (YELLOW); KETONES,URINE Negative (NEGATIVE); LEUKOCYTE ESTERASE ,URINE Negative (NEGATIVE); NITRITE, URINE Negative (NEGATIVE); PROTEIN,URINE >=300 mg/dl (NEGATIVE); UGLUCOSE Negative (NEGATIVE); UROBILINOGEN,URINE 0.2 EU/dL (0.2)
[2023-10-14 18:21] LABS: BARBITURATE, URINE NEGATIVE (NEGATIVE); BENZODIAZEPINE, URINE NEGATIVE (NEGATIVE); COCCAINE, URINE NEGATIVE (NEGATIVE); PHENCYCLIDINE SCREEN,URINE NEGATIVE (NEGATIVE)
[2023-10-14 18:24] LABS: AMPHETAMINE, URINE POSITIVE (NEGATIVE)
[2023-10-14 18:25] LABS: CANNABINOID, URINE POSITIVE (NEGATIVE); OPIATE, URINE POSITIVE (NEGATIVE)
[2023-10-14 18:31] LABS: ADD URINE CULTURE NO; BACTERIA,URINE Few /HPF (None Seen); SPERM,URINE Moderate /HPF (None Seen); SQUAMOUS EPITHELIAL CELL,UR Few /HPF (None Seen); YEAST,URINE Few /HPF (None Seen)
[2023-10-14 18:57] VITALS: BP 141/88; TEMP 98.6; O2SAT 98
[2023-10-14] MEDS: FLUCONAZOLE (100 MG) 100 MG TABLET PO ONE (22:24)
== END 2023-10-14 23:18 | disposition left against medical advice (07) ==
LOC: ER 16:43
DX: R45.851 Suicidal ideations (principal); R45.850 Homicidal ideations; F32.A Depression, unspecified; I10 Essential (primary) hypertension; E11.9 Type 2 diabetes mellitus without complications; G89.29 Other chronic pain; F20.9 Schizophrenia, unspecified; Z91.011 Allergy to milk products; Z91.018 Allergy to other foods; Z88.8 Allergy status to other drugs, medicaments and biological substances; Z79.899 Other long term (current) drug therapy; Z20.822 Contact with and (suspected) exposure to COVID-19
CPT/HCPCS: 36415; 80048-TC; 80076-TC; 81001; 85025-TC; G0480

== ENCOUNTER 2023-12-01 17:39 | Emergency (ER) | payer OTHER | END 2023-12-01 17:56 | disposition home or self-care (01) | LOC: ER 17:44 | DX: Z76.0 Encounter for issue of repeat prescription (principal); Z53.21 Procedure and treatment not carried out due to patient leaving prior to being seen by health care provider ==